=== PATIENT | female | born 1935 | race Caucasian/White ===

== ENCOUNTER 2016-10-11 06:18 | Emergency (ER) | payer MEDICARE, OTHER ==
--- NOTE | 2016-10-11 06:46 | ER Document Report ---
ED General - General Chief Complaint: Nose Bleed Stated Complaint: NOSE BLEED Mode of Arrival: Medic Information source: Patient, Relative, [facility] Records Cannot obtain history due to: Dementia Notes: 81-year-old female with history of dementia who recently had skin grafts placed on those and mass removed from neck by physician presents with complaints of bleeding nose and the neck on the left. Patient herself has no specific complaints regarding notes there was a little bit of blood and was concerned patient is on aspirin no other blood thinners TRAVEL OUTSIDE OF THE [place] IN LAST 30 DAYS: No - HPI Onset: Yesterday Onset/Duration: Persistent Quality of pain: No pain Severity: Mild Pain Level: Denies Associated symptoms: None Exacerbated by: Denies Relieved by: Denies Similar symptoms previously: No Recently seen / treated by doctor: Yes - Related Data Allergies/Adverse Reactions: No Known Allergies Allergy (Verified 04/11/16 14:32) Past Medical History - Social History Smoking Status: Never Smoker Cigarette use (# per day): No Chew tobacco use (# tins/day): No Smoking Education Provided: No Family History: CAD - Mother of an [place] at age 59 - Past Medical History Cardiac Medical History: Reports: Hx Atrial Fibrillation, Hx Heart Attack, Hx Hypercholesterolemia, Hx Hypertension, Hx Pulmonary Embolism Pulmonary Medical History: Reports: Hx Sleep Apnea Neurological Medical History: Reports: Hx Cerebrovascular Accident - Spelled reports she had a stroke during her most recent hospitalization., Hx Seizures Malignancy Medical History: Reports: Hx Breast Cancer, Hx Skin Cancer Psychiatric Medical History: Denies: Hx Depression Past Surgical History: Reports: Hx Cholecystectomy, Hx Hysterectomy, Hx Mastectomy - right breast 2000, Hx Tubal Ligation - Immunizations Hx Diphtheria, Pertussis, Tetanus Vaccination: Yes Hx Pneumococcal Vaccination: 09/23/14 Review of Systems - Review of Systems Notes: REVIEW OF SYSTEMS: CONSTITUTIONAL : Denies fever, chills, or sweats. Denies recent illness. EENT: admits to nose bleed CARDIOVASCULAR: Denies chest pain. Denies palpitations or racing or irregular heart beat. Denies ankle edema. RESPIRATORY: Denies cough, cold, or chest congestion. Denies shortness of breath, difficulty breathing, or wheezing. GASTROINTESTINAL: Denies abdominal pain or distention. Denies nausea, vomiting , or diarrhea. Denies blood in vomitus, stools, or per rectum. Denies black, tarry stools. Denies constipation. GENITOURINARY: Denies difficulty urinating, painful urination, burning, frequency, blood in urine, or discharge. FEMALE GENITOURINARY: Denies vaginal bleeding, heavy or abnormal periods, irregular periods. Denies vaginal discharge or odor. MUSCULOSKELETAL: Denies back or neck pain or stiffness. Denies joint pain or swelling. SKIN: admits ot blood from left neck HEMATOLOGIC : Denies easy bruising or bleeding. LYMPHATIC: Denies swollen, enlarged glands. NEUROLOGICAL: Denies confusion or altered mental status. Denies passing out or loss of consciousness. Denies dizziness or lightheadedness. Denies headache. Denies weakness or paralysis or loss of use of either side. Denies problems with gait or speech. Denies sensory loss, numbness, or tingling. Denies seizures. PSYCHIATRIC: Denies anxiety or stress. Denies depression, suicidal ideation, or homicidal ideation. ALL OTHER SYSTEMS REVIEWED AND NEGATIVE. Dictation was performed using [employer] voice recognition software PHYSICAL EXAMINATION: GENERAL: Well-appearing, well-nourished and in no acute distress. HEAD: Atraumatic, normocephalic. EYES: Pupils equal round and reactive to light, extraocular movements intact, conjunctiva are normal. ENT: left nostril clot noted, , left nose , multiple sutures of skin graft well appearing NECK: Normal range of motion, supple without lymphadenopathy LUNGS: Breath sounds clear to auscultation bilaterally and equal. No wheezes rales or rhonchi. HEART: Regular rate and rhythm without murmurs ABDOMEN: Soft, nontender, nondistended abdomen. No guarding, no rebound. No masses appreciated. Female : deferred Musculoskeletal: Normal range of motion, no pitting or edema. No cyanosis. NEUROLOGICAL: Cranial nerves grossly intact. Normal speech, normal gait. Normal sensory, motor exams PSYCH: Normal mood, normal affect. SKIN:left neck no pulsatile mass, no active bleeding, multiple sutures well appearing with dried oozing from the posterior aspect Course - Re-evaluation Re-evalutation: 10/11/16 06:57 Quick clot was placed on the neck to inhibit any further bleeding, patient otherwise looks well is in no distress. There is a large clots in the nose which is intact. Given that there is no active hemorrhaging patient looks well vital signs are stable I believe she is stable for discharge with the understanding that if symptoms worsen she must return immediately for further evaluation and care Daughter at bedside will stay with her today and will return immediately if there is any other concerns After performing a Medical Screening Examination, I estimate there is LOW risk for ACUTE CORONARY SYNDROME, RESPIRATORY FAILURE, SEPSIS OR MENINGITIS, thus I consider the discharge disposition reasonable. The patient and I have discussed the diagnosis and risks, and we agree with discharging home with close follow- up. We also discussed returning to the Emergency Department immediately if new or worsening symptoms occur. We have discussed the symptoms which are most concerning (e.g., changing or worsening pain, trouble swallowing or breathing, neck stiffness, fever) that necessitate immediate return. Discharge - Discharge Clinical Impression: Postoperative hematoma of skin following dermatologic procedure, Bleeding nose Condition: Stable Disposition: HOME, SELF-CARE Additional Instructions: Please remove quick clot in 24 hours Do not allow patient to blow her nose Return immediately if there are any other concerns Please follow-up with physician in 2-3 days for reevaluation
[2016-10-11 07:41] VITALS: BP 127/63
== END 2016-10-11 07:37 | disposition home or self-care (01) ==
LOC: ER 06:18
DX: L76.31 Postprocedural hematoma of skin and subcutaneous tissue following a dermatologic procedure (principal); R04.0 Epistaxis
CPT/HCPCS: 99284

== ENCOUNTER 2016-10-12 20:23 | Emergency (ER) | payer MEDICARE, OTHER ==
[2016-10-12] MEDS ORDERED: OXYMETAZOLINE HCL 0.05% NASAL SPRAY 15 ML BOTTLE NASL ONE (20:46)
[2016-10-12] MEDS ORDERED: LIDOCAINE 1%/EPINEPHRINE INJ 20 ML VIAL INJ ONE (21:14)
[2016-10-12] MEDS ORDERED: DESMOPRESSIN ACETATE INJ 4 MCG/1 ML AMPULE IV ONE ×2 (21:15→22:00)
--- NOTE | 2016-10-12 21:30 | ER Document Report ---
ED General - General Stated Complaint: NOSE BLEED Cannot obtain history due to: Dementia Notes: Patient is a 81-year-old female past medical history of breast cancer and acquired von Willebrand's disease who had a basal cell carcinoma resected off the left aspect of her nose with skin grafting the left neck placed 3 days ago. Since that time she has had oozing from the neck wound, the skin graft site as well as from the left nostril. She was seen in the emergency department earlier today and had a topical thrombin was applied to the neck wound no additional interventions taken. She's continued to bleed from all 3 sites since that time. She is not had any additional symptoms. The daughter brought the patient to the emergency department due to ongoing oozing from the sites. History is otherwise limited secondary to patient's significant dementia TRAVEL OUTSIDE OF THE [place] IN LAST 30 DAYS: No - Related Data Allergies/Adverse Reactions: No Known Allergies Allergy (Verified 04/11/16 14:32) Past Medical History - General Information source: Relative - Social History Smoking Status: Never Smoker Frequency of alcohol use: None Drug Abuse: None Lives with: Other - Assisted-living Family History: CAD - Mother of an [place] at age 59 - Past Medical History Cardiac Medical History: Reports: Hx Atrial Fibrillation, Hx Heart Attack, Hx Hypercholesterolemia, Hx Hypertension, Hx Pulmonary Embolism Pulmonary Medical History: Reports: Hx Sleep Apnea Neurological Medical History: Reports: Hx Cerebrovascular Accident - Spelled reports she had a stroke during her most recent hospitalization., Hx Seizures Malignancy Medical History: Reports: Hx Breast Cancer, Hx Skin Cancer Psychiatric Medical History: Denies: Hx Depression Past Surgical History: Reports: Hx Cholecystectomy, Hx Hysterectomy, Hx Mastectomy - right breast 2000, Hx Tubal Ligation - Immunizations Hx Diphtheria, Pertussis, Tetanus Vaccination: Yes Hx Pneumococcal Vaccination: 09/23/14 Review of Systems - Review of Systems Notes: Constitutional: Negative for fever. Cardiovascular: Negative for chest pain. HEENT: Positive for left nosebleed Respiratory: Negative for shortness of breath. Gastrointestinal: Negative for vomiting Musculoskeletal: Negative for back pain. Skin: Positive for bleeding from the skin graft sites Neurological: Negative for weakness or numbness. 10 point ROS negative except as marked above and in HPI. Physical Exam - Vital signs Vitals: Temp 97.8 F 10/12/16 20:25 Interpretation: Normal Notes: PHYSICAL EXAMINATION: GENERAL: Frail, elderly-appearing female in no acute distress HEAD: Atraumatic, normocephalic. EYES: Pupils equal round and reactive to light, extraocular movements intact, sclera anicteric, conjunctiva are normal. ENT: A large clot is present in the left nostril with a small amount of blood oozing from the area. There is a skin graft site on the left nose with a small amount of bleeding. NECK: Normal range of motion, there is a well-healing surgical wound on the left neck that is oozing blood from multiple sites. LUNGS: Breath sounds clear to auscultation bilaterally and equal. No wheezes rales or rhonchi. HEART: Regular rate and rhythm without murmurs ABDOMEN: Soft, nontender, normoactive bowel sounds. No guarding, no rebound. No masses appreciated. EXTREMITIES: Normal range of motion, no pitting or edema. No cyanosis. NEUROLOGICAL: No focal neurological deficits. Moves all extremities spontaneously and on command. PSYCH: Normal mood, normal affect. SKIN: Warm, Dry, normal turgor, no rashes or lesions noted. Course - Re-evaluation Re-evalutation: 10/12/16 21:29 Patient presents with ongoing bleeding from the left nostril as well as the incisional site along the left neck. Vitals otherwise within normal limits without tachycardia or hypotension. No significant bleeding although she is certainly oozing blood from the nostril as well as her incision site. Will proceed with administration of DDAVP given that patient has von Willebrand's disease and is continuing to bleed. Also packed the left nostril after installation of oxymetazoline. I will apply Dermabond over the neck incision to prevent ongoing bleeding. A CBC will also be obtained given the patient has been bleeding for 3 days this time to ensure that she has not become critically anemic. 10/13/16 01:24 CBC shows only mild anemia. Vitals remained within normal limits without tachycardia or hypotension. No active bleeding after 3 hours of monitoring in total after infusion of DDAVP as well as placement of a Rhino Rocket. Patient will be started on Keflex for prophylaxis given placement of Rhino Rocket. I' ve informed the daughter that the patient is follow-up with ENT in the next 3-4 days. At this time will discharge with return precautions and follow-up recommendations. Verbal discharge instructions given a the bedside and opportunity for questions given. Medication warnings reviewed. Daughter is in agreement with this plan and has verbalized understanding of return precautions and the need for primary care follow-up in the next 24-72 hours. 10/13/16 03:17 Patient does have mild tachycardia at 107 at time of discharge. This tachycardia started after placing the Rhino Rocket and I suspect the elevated heart rate is secondary to patient's discomfort with Rhino Rocket as her bleeding has stopped and her blood pressures remained within normal limits. - Vital Signs Vital signs: Temp Pulse Resp BP Pulse Ox 97.8 F 15 129/66 H 96 10/12/16 20:25 10/13/16 02:00 10/13/16 00:01 10/13/16 02:00 - Laboratory Result Diagrams: 10/13/16 00:40 Laboratory results interpreted by me: 10/13/16 00:40 Hgb 11.1 L Hct 34.2 L RDW 14.5 H Procedures - Nosebleed Procedure Left Time completed: 23:10 Location: Anterior Supplies used: Nasal tampon, Rhinorocket Discharge - Discharge Clinical Impression: Von Willebrand disease, Postoperative hematoma of skin following dermatologic procedure, Bleeding nose Condition: Fair Disposition: HOME, SELF-CARE Additional Instructions: You were seen today for a nosebleed. You need to keep the nasal tampon in place until you are seen by ear nose and throat. Take the anabiotic as directed. Return immediately if you develop more than a small amount of oozing around the nasal tampon. Please also return if you develop increasing pain, fever of greater than 1.4F, pus from the area, or any other symptoms that are concerning to you Prescriptions: Cephalexin Monohydrate [Keflex 500 mg Capsule] 500 mg PO QID #20 capsule Referrals: ISMAEL MCKEON MD [Primary Care Provider] - Follow up as needed ANITA KAPADIA MD [PRODUCTION LINE OPERATOR] - Follow up in 3-5 days
[2016-10-13 00:45] LABS: HEMATOCRIT 34.2 % (36.0-47.0); HEMOGLOBIN 11.1 g/dL (12.0-15.5); HGB HCT DIFFERENCE -0.9; MEAN CORPUSCULAR HEMOGLOBIN 27.9 pg (27.0-33.4); MEAN CORPUSCULAR HGB CONC 32.4 g/dL (32.0-36.0); MEAN CORPUSCULAR VOLUME 86 fl (80-97); RED BLOOD COUNT 3.96 10^6/uL (3.72-5.28); RED CELL DISTRIBUTION WIDTH 14.5 % (11.5-14.0); WHITE BLOOD COUNT 10.1 10^3/uL (4.0-10.5)
[2016-10-13] MEDS ORDERED: CEPHALEXIN 500 MG CAPSULE PO ONE (01:27)
[2016-10-13 03:32] VITALS: BP 155/80
== END 2016-10-13 03:43 | disposition home or self-care (01) ==
LOC: ER 20:23
PROC: 2Y41X5Z Packing of Nasal Region using Packing Material (ICD-10-PCS; principal; 2016-10-12)
DX: D68.0 Von Willebrand disease (principal); L76.31 Postprocedural hematoma of skin and subcutaneous tissue following a dermatologic procedure; R04.0 Epistaxis; Z85.3 Personal history of malignant neoplasm of breast
CPT/HCPCS: 99285; 96374; 36415; 85027; 30901; A9270; J3490 ×2; J2597

== ENCOUNTER 2016-10-13 08:42 | Emergency (ER) | payer MEDICARE, OTHER ==
--- NOTE | 2016-10-13 10:16 | ER Document Report ---
ED ENT - General Mode of Arrival: Ambulatory Information source: Patient TRAVEL OUTSIDE OF THE [place] IN LAST 30 DAYS: No - HPI Patient complains to provider of: Nose problem Associated symptoms: Other - see above <ELIJAH PARKINSON - Last Filed: 10/13/16 10:49> <KATELIN AMEZCUA - Last Filed: 10/13/16 13:41> - General Chief Complaint: Nose Bleed Stated Complaint: NOSE BLEED Notes: 81 year old female with history of dementia, acquired von Willebrand's disease, and basal cell carcinoma presents to the ED accompanied by her daughter complaining of bleeding from the left nostril secondary to a basal cell carcinoma resection that was performed [address] Schmidt. Patient had the carcinoma resected from the left nostril and had a graft placed from her left neck. Patient is a resident of [facility]. (ELIJAH PARKINSON) - Related Data Allergies/Adverse Reactions: No Known Allergies Allergy (Verified 04/11/16 14:32) Past Medical History - General Information source: Patient - Social History Smoking Status: Unknown if Ever Smoked Family History: CAD - Mother of an [place] at age 59 Patient has suicidal ideation: No Patient has homicidal ideation: No - Past Medical History Cardiac Medical History: Reports: Hx Atrial Fibrillation, Hx Heart Attack, Hx Hypercholesterolemia, Hx Hypertension, Hx Pulmonary Embolism Pulmonary Medical History: Reports: Hx Sleep Apnea Neurological Medical History: Reports: Hx Cerebrovascular Accident - Spelled reports she had a stroke during her most recent hospitalization., Hx Seizures Malignancy Medical History: Reports: Hx Breast Cancer, Hx Skin Cancer Past Surgical History: Reports: Hx Cholecystectomy, Hx Hysterectomy, Hx Mastectomy - right breast 2000, Hx Tubal Ligation - Immunizations Hx Diphtheria, Pertussis, Tetanus Vaccination: Yes Hx Pneumococcal Vaccination: 09/23/14 <ELIJAH PARKINSON - Last Filed: 10/13/16 10:49> Review of Systems - Review of Systems Constitutional: No symptoms reported EENT: See HPI, Nose discharge - bleeding from the left nostril Cardiovascular: No symptoms reported Respiratory: No symptoms reported Gastrointestinal: No symptoms reported Genitourinary: No symptoms reported Female Genitourinary: No symptoms reported Musculoskeletal: No symptoms reported Skin: No symptoms reported Hematologic/Lymphatic: No symptoms reported Neurological/Psychological: No symptoms reported -: Yes All other systems reviewed and negative <ELIJAH PARKINSON - Last Filed: 10/13/16 10:49> Physical Exam - Vital signs Interpretation: Normal - General General appearance: Alert In distress: None - HEENT Head: Normocephalic, Atraumatic Eyes: Normal Extraocular movements intact: Yes Pupils: PERRL Nasal: Other - Rhino rocket in place in left nostril. Presence of freshly coagulated blood around gauze with no sign of active bleeding.. No: Normal - Respiratory Respiratory status: No respiratory distress Breath sounds: Normal - Cardiovascular Rhythm: Irregularly irregular Heart sounds: Normal auscultation - Abdominal Inspection: Normal - Back Back: Normal - Extremities General upper extremity: Normal inspection, Normal ROM General lower extremity: Normal inspection, Normal ROM - Neurological Neuro grossly intact: Yes - Skin Skin Temperature: Warm Skin Moisture: Dry Skin Color: Normal <ELIJAH PARKINSON - Last Filed: 10/13/16 10:49> <KATELIN AMEZCUA - Last Filed: 10/13/16 13:41> - Vital signs Vitals: Temp Pulse Resp BP Pulse Ox 97.5 F 110 H 18 122/64 95 10/13/16 08:48 10/13/16 08:48 10/13/16 08:48 10/13/16 08:48 10/13/16 08:48 (ELIJAH PARKINSON) (KATELIN AMEZCUA) Course <ELIJAH PARKINSON - Last Filed: 10/13/16 10:49> - Laboratory Result Diagrams: 10/13/16 10:56 10/13/16 10:56 - Consults Dr. Esteves Consulted provider: will come to ER <KATELIN AMEZCUA - Last Filed: 10/13/16 13:41> - Re-evaluation Re-evalutation: 10/13/16 11:45 Attempt was made to contact the patient's geospatial developer, Dr. Schmidt. The swing type lathe operator at [facility] did not have any contact information for him. A phone call to the office listed on the website for after-hours doctor resulted in a recording that stated they were closed and I would need to call back during normal office hours. After exhausting all resources I could find to speak with her geospatial developer, I consulted the ear nose and throat doctor who is covering the local [facility] practice for the coming week. 10/13/16 13:35 The patient was seen by Dr. Esteves. He removed the Rhino Rocket, examined the skin flap that was bleeding, approximately epinephrine and replaced the Rhino Rocket and inflated it with more pressure than the first one had. She is to follow-up in the ENT office this week, and to follow-up with her geospatial developer this week. He called [facility] and give them instructions on reasons for her to return to the emergency room, and procedures that they can do for the patient at the assisted living facility. (KATELIN AMEZCUA) - Vital Signs Vital signs: Temp Pulse Resp BP Pulse Ox 98.7 F 106 H 16 125/67 94 10/13/16 10:54 10/13/16 10:54 10/13/16 10:54 10/13/16 10:54 10/13/16 10:54 (ELIJAH PARKINSON) (KATELIN AMEZCUA) - Laboratory Laboratory results interpreted by me: 10/13/16 10/13/16 10:56 10:56 WBC 12.2 H Hgb 11.2 L MCHC 31.1 L RDW 14.7 H Absolute Neutrophils 9.3 H Glucose 130 H Total Protein 6.2 L (KATELIN AMEZCUA) Discharge <ELIJAH PARKINSON - Last Filed: 10/13/16 10:49> <KATELIN AMEZCUA - Last Filed: 10/13/16 13:41> - Discharge Clinical Impression: Epistaxis, Von Willebrand's disease Post-op bleeding Qualifiers: Surgical complication system/body Area: skin Procedure type: dermatologic Qualified Code(s): L76.21 - Postprocedural hemorrhage of skin and subcutaneous tissue following a dermatologic procedure Condition: Stable Disposition: HOME, SELF-CARE Additional Instructions: Follow-up with the ENT doctor at [place] [facility] this week, call Saturday for an appointment. Follow-up with her geospatial developer this week, call Saturday morning for an appointment. RETURN TO THE EMERGENCY ROOM IF ANY NEW OR WORSENING SYMPTOMS. Scribe Attestation: 10/13/16 13:35 I personally performed the services described in the documentation, reviewed and edited the documentation which was dictated to the scribe in my presence, and it accurately records my words and actions. (SEVEN,KATELIN) Scribe Documentation - Scribe Written by Scribe:: Geetha Lu, 10/13/2016 10:38 acting as scribe for :: Seven <ELIJAH PARKINSON - Last Filed: 10/13/16 10:49>
[2016-10-13 11:19] LABS: ABSOLUTE LYMPHOCYTES (AUTO) 1.6 10^3/uL (0.5-4.7); ABSOLUTE MONOCYTES (AUTO) 1.2 10^3/uL (0.1-1.4); ABSOLUTE NEUT (AUTO) 9.3 10^3/uL (1.7-8.2); BASOPHILS % (AUTO) 0.3 % (0-2); EOSINOPHILS % (AUTO) 0.2 % (0-6); HEMOGLOBIN 11.2 g/dL (12.0-15.5); HGB HCT DIFFERENCE -2.4; LYMPHOCYTES % (AUTO) 13.1 % (13-45); MEAN CORPUSCULAR HEMOGLOBIN 27.2 pg (27.0-33.4); MEAN CORPUSCULAR HGB CONC 31.1 g/dL (32.0-36.0); MEAN CORPUSCULAR VOLUME 88 fl (80-97); MONOCYTES % (AUTO) 9.8 % (3-13); RED BLOOD COUNT 4.12 10^6/uL (3.72-5.28); RED CELL DISTRIBUTION WIDTH 14.7 % (11.5-14.0); SEGMENTED NEUTROPHILS % (AUTO) 76.6 % (42-78); WHITE BLOOD COUNT 12.2 10^3/uL (4.0-10.5)
[2016-10-13 11:35] LABS: PROTHROMBIN TIME 13.3 SEC (11.4-15.4)
[2016-10-13 11:37] LABS: ALANINE AMINOTRANSFERASE 36 U/L (9-52); ALBUMIN 3.6 g/dL (3.5-5.0); ALKALINE PHOSPHATASE 76 U/L (38-126); ANION GAP 12 (5-19); ASPARTATE AMINO TRANSFERASE 31 U/L (14-36); BLOOD UREA NITROGEN 14 mg/dL (7-20); CALCIUM 9.1 mg/dL (8.4-10.2); CARBON DIOXIDE 26 mmol/L (22-30); CHLORIDE 105 mmol/L (98-107); CREATININE RESULT 0.52 mg/dL (0.52-1.25); GLUCOSE 130 mg/dL (75-110); POTASSIUM 4.2 mmol/L (3.6-5.0); SODIUM 142.5 mmol/L (137-145); TOTAL PROTEIN 6.2 g/dL (6.3-8.2)
[2016-10-13] MEDS ORDERED: LIDOCAINE 1%/EPINEPHRINE INJ 20 ML VIAL INJ ONE (12:09)
[2016-10-13 13:48] VITALS: BP 131/75
--- NOTE | 2016-10-13 13:53 | CONSULTATION REPORT E ---
Consultation Report NAME: EDWARD DICK : 1935 AGE: 81Y DATE: 10/13/2016 TO: SHEREEN DENNIS FROM: KATELIN AMEZCUA M.D. Requesting Physician TIME: 12:55 p.m. HISTORY OF PRESENT ILLNESS: This is an 81-year-old white female who was brought to the emergency room with minor oozing from the left nostril. The patient has been seen on 2 other occasions prior to this for this same complaint. The patient, this past Saturday, had surgery performed in order to remove a basal cell carcinoma from the distal aspect of her nose favoring the left side. The patient also had a graft harvested from the left side of her neck. The surgery was performed by Dr. Schmidt. The patient was subsequently sent home, however, the patient does have a history of Von Willebrand Disease that was acquired secondary to chemotherapy for cancer treatment. The patient was brought to the emergency room this morning once again with generalized oozing from the left nasal cavity. The patient was subsequently worked up by the emergency room physician and I was consulted due to the bleeding. Several attempts were made to contact Dr. Schmidt, however, those were unsuccessful. The patient was, otherwise, found to be stable at the time of the exam. The patient did receive DDAVP yesterday and she received the maximal dose. ALLERGIES: The patient has no known drug allergies. PAST MEDICAL AND SURGICAL HISTORY: Reviewed in the medical record chart which was found to be extensive. MEDICATIONS: Her medication list was also reviewed in the medical chart. SOCIAL AND FAMILY HISTORY: Reviewed not only in the chart but also with her and her daughter who are present at the bedside. PHYSICAL EXAMINATION: GENERAL: Patient was found to be stable at the time. She did respond to verbal stimuli, however, she does have a history of stroke and is unable to respond verbally. HEENT: Patient's tympanic membranes were found to be intact bilaterally. She does wear hearing aids which were subsequently passed off to the daughter. No middle ear disease was noted. The bony landmarks were appropriate and the external auditory canals were found to be patent bilaterally. Nasal cavity on the right side was found to be patent. There was no bleeding. The left side was obstructed with a nasal Rhino Rocket. There was generalized oozing around the Rhino Rocket which did not appear to be placed appropriately. She also had a mustache dressing that was present which was found to be soaked with bright red blood. Please note that I did remove the mustache dressing. I attempted to then inflate the balloon further which did not appear to be inflated enough, however, the packing came out on its own. I subsequently then cleaned out the left nostril, inspected the area, and saw some generalized oozing from the previous surgical site. I then injected the area with 1% Xylocaine with epinephrine. Approximately 3 mL were used. I then took another 7.5 cm Rhino Rocket, coated it with lubricant, and then placed it in the patient's nasal cavity and then inflated it fully. Please note that the bleeding did stop immediately. I then placed a very small gauze and then a mustache dressing. I then inspected the patient's oral cavity. There was no bright red blood emanating from the nasopharynx. The uvula ridge and gingiva were found to be normal in appearance with no abnormalities. The buccal mucosa and floor of mouth were also normal in appearance with no masses or lesions. The tongue was midline and mobile and a strong gag reflex was noted. Soft palate did demonstrate a significant redundancy that did contact the posterior oropharyngeal wall. Neck was found to be supple with no adenopathy that was palpable. There was a laryngeal click and the trachea was found to be midline and mobile. Please note that there was a previous surgical site noted on the left side of her neck extending to the base. I did remove the dressing that was over it and hemostasis was noted. Please note that I did not redress this wound as if it starts bleeding, we would like to see that before any issues were to develop. Once that was completed, I then went over the instructions with the daughter and extensively. IMPRESSION: 1. Left epistaxis probably secondary to previous surgery. 2. Status post resection of basal cell carcinoma from the left side of her nose distally located. 3. Acquired Von Willebrand disease. 4. History of CVA. PLAN: As stated above, I did go ahead and replace the packing without difficulty. She was then given appropriate instructions as was the and the daughter. I have also discussed the aftercare with the emergency room personnel as she will need to be placed on an antibiotic because she has a foreign body present within her nose. I have also recommended that this packing remain for approximately 5 days. The patient is to continue with wound care as discussed by Dr. Schmidt. The patient will be instructed to followup with the ENT office this week for reevaluation or sooner if need be. Again, both the ER nurse and ER physician understands and will convey this to the [facility]. Please note that I did speak with Sandra who is the assembly lead person nurse over at the skilled facility extensively and did discuss with her the history, what I did in the ER, and also the aftercare instructions. I will be attempting once again to reach Dr. Schmidt or Dr. Orozco. DICTATING PHYSICIAN: SHEREEN DENNIS M.D. [id number] PHY#: [id number] ID: [id number] JOB#: [id number] ACCT: [id number] cc:SHEREEN DENNIS >
== END 2016-10-13 13:54 | disposition home or self-care (01) ==
LOC: ER 08:42
DX: R04.0 Epistaxis (principal); D68.0 Von Willebrand disease; L76.21 Postprocedural hemorrhage of skin and subcutaneous tissue following a dermatologic procedure; F03.90 Unspecified dementia, unspecified severity, without behavioral disturbance, psychotic disturbance, mood disturbance, and anxiety; Z85.828 Personal history of other malignant neoplasm of skin; Z98.890 Other specified postprocedural states
CPT/HCPCS: 99284; 36415; 85025; 85610; 80053; J3490

== ENCOUNTER 2016-10-18 07:03 | Inpatient (IN) | payer MEDICARE, OTHER ==
[2016-10-18] MEDS ORDERED: NORMAL SALINE 1000 ML 1,000 ML IV ONE (07:56)
[2016-10-18] MEDS ORDERED: PANTOPRAZOLE SODIUM 40 MG VIAL IV ONE (07:57)
[2016-10-18] MEDS ORDERED: DESMOPRESSIN ACETATE INJ 4 MCG/1 ML AMPULE IV ONE (07:57)
--- NOTE | 2016-10-18 08:16 | ER Document Report ---
ED General - General Stated Complaint: VAGINAL BLEEDING Mode of Arrival: Ambulatory Information source: Patient Notes: 81-year-old female history of acquired von Willebrand's who had a basal cell carcinoma removed from nose and neck and has been seen multiple times with bleeding issues presents today with rectal bleeding bright red and dark that occurred this morning when she was evaluated by the staff at the care facility TRAVEL OUTSIDE OF THE [place] IN LAST 30 DAYS: No - HPI Onset: Just prior to arrival Onset/Duration: Sudden Quality of pain: No pain Severity: Moderate Pain Level: Denies Associated symptoms: Other Exacerbated by: Denies Relieved by: Denies Similar symptoms previously: Yes Recently seen / treated by doctor: Yes - Related Data Allergies/Adverse Reactions: No Known Allergies Allergy (Verified 10/18/16 08:37) Past Medical History - Social History Smoking Status: Never Smoker Cigarette use (# per day): No Chew tobacco use (# tins/day): No Smoking Education Provided: No Family History: CAD - Mother of an VA at age 59 - Past Medical History Cardiac Medical History: Reports: Hx Atrial Fibrillation, Hx Heart Attack, Hx Hypercholesterolemia, Hx Hypertension, Hx Pulmonary Embolism Pulmonary Medical History: Reports: Hx Sleep Apnea Neurological Medical History: Reports: Hx Cerebrovascular Accident - Spelled reports she had a stroke during her most recent hospitalization., Hx Seizures Renal/ Medical History: Denies: Hx Peritoneal Dialysis Malignancy Medical History: Reports: Hx Breast Cancer, Hx Skin Cancer Psychiatric Medical History: Denies: Hx Depression Past Surgical History: Reports: Hx Cholecystectomy, Hx Hysterectomy, Hx Mastectomy - right breast 2000, Hx Tubal Ligation - Immunizations Hx Diphtheria, Pertussis, Tetanus Vaccination: Yes Hx Pneumococcal Vaccination: 09/23/14 Review of Systems - Review of Systems Notes: REVIEW OF SYSTEMS: CONSTITUTIONAL : Denies fever, chills, or sweats. Denies recent illness. EENT: Denies eye, ear, throat, or mouth pain or symptoms. Denies nasal or sinus congestion or discharge. Denies throat, tongue, or mouth swelling or difficulty swallowing. CARDIOVASCULAR: Denies chest pain. Denies palpitations or racing or irregular heart beat. Denies ankle edema. RESPIRATORY: Denies cough, cold, or chest congestion. Denies shortness of breath, difficulty breathing, or wheezing. GASTROINTESTINAL: rectal bleeding noted by staff GENITOURINARY: Denies difficulty urinating, painful urination, burning, frequency, blood in urine, or discharge. FEMALE GENITOURINARY: Denies vaginal bleeding, heavy or abnormal periods, irregular periods. Denies vaginal discharge or odor. MUSCULOSKELETAL: Denies back or neck pain or stiffness. Denies joint pain or swelling. SKIN: Denies rash, lesions or sores. HEMATOLOGIC : Denies easy bruising or bleeding. LYMPHATIC: Denies swollen, enlarged glands. NEUROLOGICAL: Denies confusion or altered mental status. Denies passing out or loss of consciousness. Denies dizziness or lightheadedness. Denies headache. Denies weakness or paralysis or loss of use of either side. Denies problems with gait or speech. Denies sensory loss, numbness, or tingling. Denies seizures. PSYCHIATRIC: Denies anxiety or stress. Denies depression, suicidal ideation, or homicidal ideation. ALL OTHER SYSTEMS REVIEWED AND NEGATIVE. Dictation was performed using [employer] voice recognition software PHYSICAL EXAMINATION: GENERAL: Well-appearing, well-nourished and in no acute distress. HEAD: Atraumatic, normocephalic. EYES: Pupils equal round and reactive to light, extraocular movements intact, conjunctiva are normal. ENT: nasal packing left nostril, mustache dressing, left nasal dressing, left neck dressing , no active bleeding NECK: Normal range of motion, supple without lymphadenopathy LUNGS: Breath sounds clear to auscultation bilaterally and equal. No wheezes rales or rhonchi. HEART: Regular rate and rhythm without murmurs ABDOMEN: Soft, nontender, nondistended abdomen. No guarding, no rebound. No masses appreciated. large amount of stool blood dark and bright red clots Female : no vagina bleeding noted with nurses in room Musculoskeletal: Normal range of motion, no pitting or edema. No cyanosis. NEUROLOGICAL: Cranial nerves grossly intact. Normal speech, normal gait. Normal sensory, motor exams PSYCH: Normal mood, normal affect. SKIN: Warm, Dry, normal turgor, no rashes or lesions noted. Physical Exam - Vital signs Vitals: Temp Pulse Resp BP Pulse Ox 98.1 F 105 H 16 123/63 93 10/18/16 07:30 10/18/16 07:30 10/18/16 07:30 10/18/16 07:30 10/18/16 07:30 Course - Re-evaluation Re-evalutation: 10/18/16 08:32 Patient noted to have large amount rectal bleeding, DDAVP as well as Protonix have been started on fluids lab work is pending - Vital Signs Vital signs: Temp Pulse Resp BP Pulse Ox 98.1 F 105 H 16 117/62 95 10/18/16 07:30 10/18/16 07:30 10/18/16 10:01 10/18/16 10:01 10/18/16 10:01 - Laboratory Result Diagrams: 10/18/16 08:21 10/18/16 09:59 Laboratory results interpreted by me: 10/18/16 10/18/16 08:21 09:59 WBC 14.6 H RBC 3.58 L Hgb 9.9 L Hct 30.9 L RDW 14.7 H Seg Neutrophils % 80.0 H Lymphocytes % 9.8 L Absolute Neutrophils 11.7 H Sodium 146.5 H Potassium 3.2 L Chloride 108 H BUN 25 H Creatinine 0.49 L Glucose 137 H Total Protein 5.3 L Albumin 2.8 L Discharge - Discharge Clinical Impression: Von Willebrand's disease, Rectal hemorrhage Condition: Stable Disposition: ADMITTED INPATIENT Admitting Provider: Hospitalist Unit Admitted: [facility]
[2016-10-18 08:41] LABS: ABSOLUTE EOSINOPHILS # (AUTO) 0.1 10^3/uL (0.0-0.6); ABSOLUTE LYMPHOCYTES (AUTO) 1.4 10^3/uL (0.5-4.7); ABSOLUTE MONOCYTES (AUTO) 1.3 10^3/uL (0.1-1.4); ABSOLUTE NEUT (AUTO) 11.7 10^3/uL (1.7-8.2); BASOPHILS % (AUTO) 0.3 % (0-2); EOSINOPHILS % (AUTO) 0.8 % (0-6); HEMATOCRIT 30.9 % (36.0-47.0); HEMOGLOBIN 9.9 g/dL (12.0-15.5); HGB HCT DIFFERENCE -1.2; LYMPHOCYTES % (AUTO) 9.8 % (13-45); MEAN CORPUSCULAR HEMOGLOBIN 27.8 pg (27.0-33.4); MEAN CORPUSCULAR HGB CONC 32.1 g/dL (32.0-36.0); MEAN CORPUSCULAR VOLUME 86 fl (80-97); MONOCYTES % (AUTO) 9.1 % (3-13); RED BLOOD COUNT 3.58 10^6/uL (3.72-5.28); RED CELL DISTRIBUTION WIDTH 14.7 % (11.5-14.0); WHITE BLOOD COUNT 14.6 10^3/uL (4.0-10.5)
[2016-10-18 10:33] LABS: ALANINE AMINOTRANSFERASE 30 U/L (9-52); ALBUMIN 2.8 g/dL (3.5-5.0); ALKALINE PHOSPHATASE 76 U/L (38-126); ANION GAP 12 (5-19); ASPARTATE AMINO TRANSFERASE 17 U/L (14-36); BILIRUBIN,TOTAL 0.6 mg/dL (0.2-1.3); BLOOD UREA NITROGEN 25 mg/dL (7-20); CARBON DIOXIDE 27 mmol/L (22-30); CHLORIDE 108 mmol/L (98-107); CREATININE RESULT 0.49 mg/dL (0.52-1.25); GLUCOSE 137 mg/dL (75-110); POTASSIUM 3.2 mmol/L (3.6-5.0); SODIUM 146.5 mmol/L (137-145); TOTAL PROTEIN 5.3 g/dL (6.3-8.2)
[2016-10-18 11:35] LABS: PROTHROMBIN TIME 14.4 SEC (11.4-15.4)
[2016-10-18] MEDS: PANTOPRAZOLE SODIUM 40 MG VIAL IV PRN ×2 (12:00→21:03)
[2016-10-18] MEDS ORDERED: NORMAL SALINE 1000 ML 1,000 ML IV PRN (12:09)
[2016-10-18] MEDS ORDERED: ACETAMINOPHEN 325 MG TABLET PO PRN (12:15)
[2016-10-18] MEDS ORDERED: ONDANSETRON HCL INJ/PF 4 MG/2 ML SDV IV PRN (12:15)
--- NOTE | 2016-10-18 14:30 | PDOC H&P ---
History of Present Illness Admission Date/PCP: 10/18/16 12:09 Patient complains of: Patient is nonverbal but was noted to be sitting in a pool of her own blood. History of Present Illness: EDWARD DICK is a 81 year old female resident at [facility] with Dr. Zuniga as her primary care provider sent over to the emergency department today when she was noticed to be sitting in a pool of her own blood. She has had a massive CVA in May 2015 that left her with an expressive aphasia, dysphagia and a dense right hemiplegia requiring placement at [facility]. She takes daily low-dose aspirin as a result. She has a history of acquired von Willebrand's disease thought secondary to chemotherapy for treatment of her breast cancer for which she also received radical mastectomy and lymph node dissection on the right but no radiation therapy. She is followed by Dr. Soler, hematology for this disease. In fact, she was seen in the emergency department earlier this week with epistaxis, ENT was consulted in the emergency department and placed Rhino Rocket that is due to removed today, and she was given a dose of DDAVP. 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 She has a history of Hemoccult-positive stools and underwent upper and lower endoscopy but that was many years ago and the results are unknown. She has known diverticular disease no history of diverticulitis and no history of diverticular bleed previously. Evaluation in the emergency department she shows grossly bloody stools on exam, her hemoglobin is down to 9.9 from a baseline at [facility] between 11.5 and 12.5. She was given a dose of DDAVP 20 g. She is started on a Protonix drip after Protonix bolus given. She is received 1 L of normal saline prior to my arrival. We were asked to admit her for further evaluation and management. Dr. Lozano has agreed to see the patient in consultation if lower endoscopy is required. The patient is DO NOT RESUSCITATE. Her daughter, Paige, is her POA. Past Medical History Cardiac Medical History: Reports: Atrial Fibrillation, Myocardial Infarction, Hyperlipidema, Hypertension, Pulmonary Embolism Pulmonary Medical History: Reports: Sleep Apnea Neurological Medical History: Reports: Seizures Malignancy Medical History: Reports: Breast Cancer, Skin Cancer Psychiatric Medical History: Denies: Depression Hematology: Reports: Anemia - Von Wildebrands, Bleeding Tendencies - Acquired Von Willebrand's disease Past Surgical History Past Surgical History: Reports: Cholecystectomy, Hysterectomy, Mastectomy - right breast 2000, Tubal Ligation Social History Information Source: Relative Smoking Status: Never Smoker Frequency of Alcohol Use: None Hx Recreational Drug Use: No Hx Prescription Drug Abuse: No - Advance Directive Resuscitation Status: Do Not Resuscitate Family History Family History: CAD - Mother of an MS at age 59 Parental Family History Reviewed: Yes Children Family History Reviewed: Yes Sibling(s) Family History Reviewed.: Yes Medication/Allergy Allergies/Adverse Reactions: No Known Allergies Allergy (Verified 10/18/16 08:37) Review of Systems ROS unobtainable: Due to mental status - Patient is nonverbal since her stroke Physical Exam Vital Signs: Temp Pulse Resp BP Pulse Ox 98.1 F 105 H 18 109/79 96 10/18/16 07:30 10/18/16 07:30 10/18/16 12:00 10/18/16 12:00 10/18/16 12:00 PHYSICAL EXAM GENERAL: NAD; well developed; thin; alert and unable to determine if oriented to person, place, time, situation, seems to recognize her family and respond other voices. HEENT: normocephalic, atraumatic; EOMI, PERRLA, no conjunctival injection, no scleral icterus; oral mucosa moist,; neck supple, no LAD, normal ROM; right elbow rocket in place in the left nare RESPIRATORY: no accessory muscle use, no increased WOB, good air entry bilaterally; no wheezes, rales, rhonchi; no inspiratory crackles CARDIO: no JVD; RRR; no systolic murmur; no tachycardia VASCULAR: no carotid bruit; no abdominal bruit; no pallor; 2+ radial, DP pulse ; normal capillary refill GI: soft; nondistended; normal bowel sounds; no hepato spleno megaly; no rebound, rigidity, guarding; nontender :; rectal deferred, already performed by the ER physician, grossly bloody stool noted on the bedclothes NEURO: normal patella reflexes; abnormal motor function with dense right hemiplegia; MSK: 4/5 strength on the left, flaccid on the right; no tenderness to palpation over the bony prominences EXTREMITIES: no calf tender; no palpable cords in calf; no clubbing, cyanosis , pedal edema SKIN: warm; moist; no petechiae; no telengectasias; no jaundice; no rash but multiple areas of ecchymosis in various stages of healing Results Impressions: Abdomen/Pelvis CT 10/18/16 09:31 IMPRESSION: COLONIC DIVERTICULOSIS. NO CT FINDINGS OF ACUTE DIVERTICULITIS. NO OTHER SIGNIFICANT OR ACUTE PROCESS IN THE ABDOMEN OR PELVIS. Assessment & Plan - Diagnosis (1) Anemia Qualifiers: Anemia type: other cause Is this a current diagnosis for this admission?: YesPlan: Admit the patient to [facility] for close dynamic monitoring, serial CBC. Repeat DDAVP this evening as it seems evidence she continues to bleed. Transfuse red blood cells as her condition warrants. If bleeding continues consider transfusion of platelets to replace the ones inhibited by her chronic aspirin use. Obviously hold any antiplatelet therapy and anticoagulation including DVT prophylaxis. Risk and benefits of transfusion of blood products were discussed with the power of lumber estimator at the bedside, all questions were asked and answered to her satisfaction, and she is agreeable transfusion if becomes clinically indicated. Consider hematology consult if her condition fails to stabilize. Consult Dr. Lozano as needed. (2) Rectal bleeding Is this a current diagnosis for this admission?: YesPlan: As above. Most likely a diverticular bleed as the etiology however with her von Willebrand's disease clearly at risk for AV malformations as well. (3) Von Willebrands disease Is this a current diagnosis for this admission?: YesPlan: As above (4) CAD (coronary artery disease) Qualifiers: Coronary Disease-Associated Artery/Lesion type: unspecified vessel or lesion type [place] vs. transplanted heart: [place] heart Associated angina: without angina Qualified Code(s): I25.10 - Atherosclerotic heart disease of [place] coronary artery without angina pectoris Is this a current diagnosis for this admission?: YesPlan: Quiescent. Continue home regimen other than antiplatelet therapy. (5) Cerebrovascular accident (CVA) Qualifiers: CVA mechanism: thrombosis Precerebral and cerebral artery: unspecified cerebral artery Qualified Code(s): I63.30 - Cerebral infarction due to thrombosis of unspecified cerebral artery Is this a current diagnosis for this admission?: YesPlan: With dense right hemiplegia. At baseline. Holding antiplatelet therapy. (6) Dysphagia Qualifiers: Dysphagia type: oropharyngeal phase Qualified Code(s): R13.12 - Dysphagia, oropharyngeal phase Is this a current diagnosis for this admission?: YesPlan: Reportedly takes dysphasic soft and thickened liquid diet at the facility (7) HTN (hypertension) Qualifiers: Hypertension type: essential hypertension Qualified Code(s): I10 - Essential (primary) hypertension Is this a current diagnosis for this admission?: YesPlan: Titrated regimen to maintain pressures ideally less than 140/90. (8) Nosebleed Is this a current diagnosis for this admission?: YesPlan: Once we have the GI bleeding uncontrollable address removal of the rhino rocket (9) Seizure disorder as sequela of cerebrovascular accident Is this a current diagnosis for this admission?: YesPlan: Clarify home regimen and continue usual - Time Time Spent: Greater than 70 Minutes Anticipated discharge: SNF Within: within 72 hours - Inpatient Certification Medical Necessity: Significant Comorbidiites Make Outpatient Treatment Too Risky , Need Close Monitoring Due to Risk of Patient Decompensation, Need For IV Fluids, Need For Continuous Telemetry Monitoring
[2016-10-18 16:03] LABS: HEMATOCRIT 28.7 % (36.0-47.0); HEMOGLOBIN 8.8 g/dL (12.0-15.5); HGB HCT DIFFERENCE -2.3; MEAN CORPUSCULAR HGB CONC 30.6 g/dL (32.0-36.0); MEAN CORPUSCULAR VOLUME 88 fl (80-97); RED BLOOD COUNT 3.25 10^6/uL (3.72-5.28); RED CELL DISTRIBUTION WIDTH 14.4 % (11.5-14.0); WHITE BLOOD COUNT 11.9 10^3/uL (4.0-10.5)
[2016-10-18] MEDS ORDERED: POTASSI CL 20 MEQ/1/2NS 1L 1,000 ML IV PRN (18:25)
[2016-10-18] MEDS ORDERED: NORMAL SALINE 250 ML IV PRN ×2 (18:28)
[2016-10-18] MEDS: LEVETIRACETAM 500 MG TABLET PO SCH (18:57)
[2016-10-18] MEDS: METOPROLOL TARTRATE 25 MG TABLET PO SCH (18:58)
[2016-10-18] MEDS: HYDROCODONE/ACETAMINOPHEN 5-325 MG TABLET PO SCH (18:58)
[2016-10-18] MEDS ORDERED: DESMOPRESSIN ACETATE 20 MCG in NORMAL SALINE 50 ML IV ONE (20:00)
[2016-10-18] MEDS: MIRTAZAPINE 15 MG TABLET PO SCH (22:32)
[2016-10-18] MEDS: ATORVASTATIN CALCIUM 40 MG TABLET PO SCH (22:33)
--- NOTE | 2016-10-18 22:36 | PDOC TRANSFER SUMMARY ---
General Admission Date/PCP: 10/18/16 12:09 Resuscitation Status: Do Not Resuscitate - Transfer Diagnosis (1) Acute post-hemorrhagic anemia Is this a current diagnosis for this admission?: YesDiagnosis Summary: Hemoglobin has now dropped to 7.7. Will proceed with blood transfusion. Daughter understands the risks associated with blood product transfusion to include, but not be limited to, transfusion reaction, which can be fatal, along with hepatitis and/or HIV viruses. Discussed in lay person's terms. Daughter agrees that patient should undergo transfusion of blood products. (2) Rectal bleeding Is this a current diagnosis for this admission?: Yes (3) Von Willebrands disease Is this a current diagnosis for this admission?: Yes (4) DNR (do not resuscitate) Is this a current diagnosis for this admission?: YesDiagnosis Summary: Implications of DO NOT RESUSCITATE/DO NOT INTUBATE status discussed with patient and daughter. Discussed in layperson's terms. Implications understood. Daughter is the health care decision maker. Her conversation is lucid and appropriate. She and patient desire DO NOT RESUSCITATE/DO NOT INTUBATE status. Will honor their wishes. Patient with aphasia from prior stroke. - Transfer Medications Home Medications: Atorvastatin Calcium [Lipitor 40 mg Tablet] 40 mg PO QHS 10/18/16 Cephalexin [Cephalexin 500 MG Capsule] 500 mg PO QID 10/18/16 Garlic [Garlic Oil] 500 mg PO DAILY 10/18/16 Hydrocodone/Acetaminophen [[place] 5-325 mg Tablet] 1 tab PO BID 10/18/16 Loperamide HCl [Imodium A-D] 2 mg PO PRN PRN 10/18/16 [place]-3 Fatty Acids [[place]-3] 1,000 mg PO DAILY 10/18/16 RX: Acetaminophen 500 mg PO Q6HP PRN 10/18/16 RX: Amlodipine Besylate 5 mg PO DAILY 10/18/16 RX: Aspirin [Aspirin 81 mg Chewable Tablet] 81 mg PO DAILY 10/18/16 RX: Famotidine 20 mg PO QHS 10/18/16 RX: Levetiracetam [Keppra 500 mg Tablet] 1,000 mg PO QAM 10/18/16 RX: Levetiracetam [Keppra] 500 mg PO QPM 10/18/16 RX: Levothyroxine Sodium [Synthroid 0.025 mg Tablet] 25 mcg PO DAILY 10/18/16 RX: Losartan Potassium [Cozaar 50 mg Tablet] 50 mg PO DAILY 10/18/16 RX: Lysine 500 mg PO DAILY 10/18/16 RX: Metoprolol Tartrate 12.5 mg PO BID 10/18/16 RX: Mirtazapine 7.5 mg PO QHS 10/18/16 RX: Sennosides/Docusate 8.6-50 mg [Senna Plus Tablet] 1 tab PO BID 10/18/16 Transfer Medications: Current Medications Acetaminophen (Tylenol 325 Mg Tablet) 650 mg PO Q4HP PRN PRN Reason: FOR PAIN OR TEMP Stop: 11/17/16 12:14 Acetaminophen/Hydrocodone Bitart ([place] 5-325 Mg Tablet) 1 tab PO BID [facility] Stop: 10/25/16 17:59 Last Admin: 10/18/16 18:58 Dose: 1 tab Atorvastatin Calcium (Lipitor 40 Mg Tablet) 40 mg PO QHS [facility] Stop: 11/17/16 21:59 Potassium Chloride/Sodium Chloride (1/2ns 1000 Ml/Kcl 20 Meq Premix Bag) 1,000 mls @ 75 mls/hr IV CONTINUOUS PRN PRN Reason: THIS MED IS NOT "PRN" Stop: 11/17/16 18:24 Sodium Chloride (Nacl 0.9% 250 Ml Iv Soln) 250 mls @ 30 mls/hr IV .DURING TRANSFUSION PRN PRN Reason: THIS MED IS NOT "PRN" Stop: 10/19/16 18:27 Sodium Chloride (Nacl 0.9% 250 Ml Iv Soln) 250 mls @ 0 mls/hr IV CONTINUOUS PRN ; As Directed PRN Reason: AFTER EACH UNIT Stop: 10/19/16 18:27 Levetiracetam (Keppra 500 Mg Tablet) 1,000 mg PO QAM [facility] Stop: 11/18/16 07:59 Levetiracetam (Keppra 500 Mg Tablet) 500 mg PO QPM [facility] Stop: 11/17/16 17:59 Last Admin: 10/18/16 18:57 Dose: 500 mg Levothyroxine Sodium (Synthroid 0.025 Mg Tablet) 0.025 mg PO DAILY [facility] Stop: 11/18/16 09:59 Metoprolol Tartrate (Lopressor 25 Mg Tablet) 12.5 mg PO BID [facility] Stop: 11/17/16 17:59 Last Admin: 10/18/16 18:58 Dose: 12.5 mg Mirtazapine (Remeron 15 Mg Tablet) 7.5 mg PO QHS [facility] Stop: 11/17/16 21:59 Ondansetron HCl (Zofran Inj/Pf 4 Mg/2 Ml Sdv) 4 mg IV Q8HP PRN PRN Reason: FOR NAUSEA/VOMITING Stop: 11/17/16 12:14 Pantoprazole Sodium (Protonix Iv Inj 40 Mg Vial) 80 mg IV .CONTINUOUS (IVBAG) PRN PRN Reason: THIS MED IS NOT "PRN" Stop: 10/21/16 08:01 Last Admin: 10/18/16 21:03 Dose: 80 mg - Allergies Allergies/Adverse Reactions: No Known Allergies Allergy (Verified 10/18/16 08:37) Hospital Course Hospital Course: 10/18/2016 Patient discussed with daytime hospitalist team at checkout rounds this evening. Admitted earlier for rectal bleeding. At 7:35 PM, I discussed the patient by phone with Dr. Soler, patient's usual service team leader. His concern is that our facility does not have the capability of measuring her von Willebrand's factor level, nor do we have the capability of transfusing von Willebrand's factor if necessary. He has recommended transferring the patient to a tertiary facility tonight if possible. Neither [facility] nor [facility] have the above capability , either, per Dr. Soler. Vital signs at 8:00 PM revealed blood pressure 121/54. Pulse 91 and regular. Respirations 18 and unlabored. 98% saturation on room air. Temperature 98.3. I subsequently discussed the above recommendation with patient and daughter. Daughter, who is patient's surrogate health care decision maker, and patient agree with the need for transfer. Patient awake alert pleasant and cooperative. Floor nurse present. According to daughter, who is at patient's bedside with patient's approval, last episode of bleeding was approximately 6 PM , just prior to patient being transferred to [facility]. At 8:20 PM, I spoke with transfer center at [facility]. I was referred to their utilization management team, with whom I discussed the patient 8:55 PM. Subsequent conversation with Dr. Soler at 9:20 PM led to his recommendation to forego platelet transfusion as had been ordered by the daytime hospitalist team. Floor nurse notified. Order cancelled. He also recommended no further DDAVP dosages tonight. At 9:45 PM, I discussed the patient by phone with Dr. Resendiz, on-call hospitalist at [facility]. He stated he would contact their on-call service team leader and have them contact me. At 10:10 PM, I discussed the patient by phone with Dr. Harley on-call hematology fellow at [facility]. Several specific questions were asked. We then were able to arrange conference call with Dr. Soler. Discussion by conference call between Dr. Soler and Dr. Harley. Patient has type I von Willebrand's disease. With this being patient's third episode of bleeding requiring DDAVP since Saturday of last week, combined with Dr. Soler's underlying concern about our facility's inability to manage any further significant bleeding, patient has been graciously accepted at [facility]. Beds are reportedly available. Vital signs at 10:15 PM reveal a blood pressure 102/45, pulse of 87, respirations 20, saturation 96% on room air, and temperature 97.3. 55 minutes extended care time spent in evaluation and management of patient. Physical Exam Vital Signs: Temp Pulse Resp BP Pulse Ox 97.3 F 87 20 102/55 L 96 10/18/16 21:59 10/18/16 21:59 10/18/16 21:59 10/18/16 21:59 10/18/16 21:59 Intake & Output 10/17/16 10/18/16 10/19/16 00:59 00:59 00:59 Weight 54.6 kg Results Laboratory Results: 10/18/16 15:45 10/18/16 15:45 WBC 11.9 H RBC 3.25 L Hgb 8.8 L Hct 28.7 L MCV 88 MCH 27.0 MCHC 30.6 L RDW 14.4 H Plt Count 297 Impressions: Abdomen/Pelvis CT 10/18/16 09:31 IMPRESSION: COLONIC DIVERTICULOSIS. NO CT FINDINGS OF ACUTE DIVERTICULITIS. NO OTHER SIGNIFICANT OR ACUTE PROCESS IN THE ABDOMEN OR PELVIS.
[2016-10-18 23:37] LABS: ABSOLUTE EOSINOPHILS # (AUTO) 0.1 10^3/uL (0.0-0.6); ABSOLUTE LYMPHOCYTES (AUTO) 1.4 10^3/uL (0.5-4.7); ABSOLUTE MONOCYTES (AUTO) 1.2 10^3/uL (0.1-1.4); ABSOLUTE NEUT (AUTO) 10.7 10^3/uL (1.7-8.2); BASOPHILS % (AUTO) 0.3 % (0-2); EOSINOPHILS % (AUTO) 1.1 % (0-6); HEMATOCRIT 23.8 % (36.0-47.0); HGB HCT DIFFERENCE -0.7; LYMPHOCYTES % (AUTO) 10.2 % (13-45); MEAN CORPUSCULAR HEMOGLOBIN 27.7 pg (27.0-33.4); MEAN CORPUSCULAR HGB CONC 32.3 g/dL (32.0-36.0); MEAN CORPUSCULAR VOLUME 86 fl (80-97); MONOCYTES % (AUTO) 8.6 % (3-13); RED BLOOD COUNT 2.76 10^6/uL (3.72-5.28); RED CELL DISTRIBUTION WIDTH 14.7 % (11.5-14.0); SEGMENTED NEUTROPHILS % (AUTO) 79.8 % (42-78); WHITE BLOOD COUNT 13.4 10^3/uL (4.0-10.5)
[2016-10-18 23:48] LABS: ANION GAP 8 (5-19); BLOOD UREA NITROGEN 18 mg/dL (7-20); CALCIUM 8.7 mg/dL (8.4-10.2); CARBON DIOXIDE 30 mmol/L (22-30); CHLORIDE 110 mmol/L (98-107); CREATININE RESULT 0.52 mg/dL (0.52-1.25); GLUCOSE 105 mg/dL (75-110); POTASSIUM 3.6 mmol/L (3.6-5.0); SODIUM 147.9 mmol/L (137-145)
[2016-10-18 23:58] LABS: HEMOGLOBIN 7.7 g/dL (12.0-15.5)
[2016-10-19] MEDS ORDERED: POTASSI CL 20 MEQ/D5-1/2NS 1L 1,000 ML IV PRN (00:19)
[2016-10-19] MEDS ORDERED: NORMAL SALINE 250 ML IV PRN ×4 (00:23→09:31)
[2016-10-19 05:46] LABS: HEMATOCRIT 27.9 % (36.0-47.0); HEMOGLOBIN 9.3 g/dL (12.0-15.5); MEAN CORPUSCULAR HEMOGLOBIN 28.8 pg (27.0-33.4); MEAN CORPUSCULAR HGB CONC 33.3 g/dL (32.0-36.0); MEAN CORPUSCULAR VOLUME 87 fl (80-97); RED BLOOD COUNT 3.22 10^6/uL (3.72-5.28); RED CELL DISTRIBUTION WIDTH 14.3 % (11.5-14.0); WHITE BLOOD COUNT 10.2 10^3/uL (4.0-10.5)
[2016-10-19 06:03] LABS: ANION GAP 9 (5-19); BLOOD UREA NITROGEN 18 mg/dL (7-20); CALCIUM 8.9 mg/dL (8.4-10.2); CARBON DIOXIDE 29 mmol/L (22-30); CHLORIDE 111 mmol/L (98-107); CREATININE RESULT 0.48 mg/dL (0.52-1.25); GLUCOSE 102 mg/dL (75-110); POTASSIUM 3.6 mmol/L (3.6-5.0); SODIUM 148.7 mmol/L (137-145)
[2016-10-19] MEDS ORDERED: LEVETIRACETAM 500 MG TABLET PO SCH (08:00)
--- NOTE | 2016-10-19 08:20 | PDOC CONSULTATION ---
Consultation Consult Date: 10/19/16 Attending physician:: TRAE THOMAS Consult reason:: Known hx of VWD dx here w/ GI bleed History of Present Illness Admission Date/PCP: 10/18/16 12:09 Patient complains of: bleeding, vwd History of Present Illness: 81-year-old female with multiple medical problems, but known history of type I von Willebrand's disease. Recently she has had different surgical procedures, minor procedures, that has required DDAVP to be given, she has had control of bleeding with that. She was given DDAVP yesterday, and over last 24 hours she' s had bleeding per rectum. It is felt at present to be a diverticular bleed. Of note, she is also had a recent nosebleed with use of DDAVP, she has a nasal trumpet placed at present, she also had a basal cell carcinoma removed from the face with bleeding from that and use of DDAVP. Hemoglobin upon presentation was in the 7 range, she was transfused, her hemoglobin today is 9 range. Past Medical History Cardiac Medical History: Reports: Atrial Fibrillation, Myocardial Infarction, Hyperlipidema, Hypertension, Pulmonary Embolism Pulmonary Medical History: Reports: Sleep Apnea Neurological Medical History: Reports: Seizures Malignancy Medical History: Reports: Breast Cancer, Skin Cancer Psychiatric Medical History: Denies: Depression Hematology: Reports: Anemia - Von Wildebrands, Bleeding Tendencies - Acquired Von Willebrand's disease Past Surgical History Past Surgical History: Reports: Cholecystectomy, Hysterectomy, Mastectomy - right breast 2000, Tubal Ligation Social History Smoking Status: Never Smoker Frequency of Alcohol Use: None Hx Recreational Drug Use: No Hx Prescription Drug Abuse: No - Advance Directive Resuscitation Status: Do Not Resuscitate Family History Family History: CAD - Mother of an DE at age 59 Parental Family History Reviewed: Yes Children Family History Reviewed: Yes Sibling(s) Family History Reviewed.: Yes Medication/Allergy Home Medications: Acetaminophen 500 mg PO Q6HP PRN 10/18/16 Amlodipine Besylate 5 mg PO DAILY 10/18/16 Aspirin [Aspirin 81 mg Chewable Tablet] 81 mg PO DAILY 10/18/16 Atorvastatin Calcium [Lipitor 40 mg Tablet] 40 mg PO QHS 10/18/16 Cephalexin [Cephalexin 500 MG Capsule] 500 mg PO QID 10/18/16 Famotidine 20 mg PO QHS 10/18/16 Garlic [Garlic Oil] 500 mg PO DAILY 10/18/16 Hydrocodone/Acetaminophen [[place] 5-325 mg Tablet] 1 tab PO BID 10/18/16 Levetiracetam [Keppra 500 mg Tablet] 1,000 mg PO QAM 10/18/16 Levetiracetam [Keppra] 500 mg PO QPM 10/18/16 Levothyroxine Sodium [Synthroid 0.025 mg Tablet] 25 mcg PO DAILY 10/18/16 Loperamide HCl [Imodium A-D] 2 mg PO PRN PRN 10/18/16 Losartan Potassium [Cozaar 50 mg Tablet] 50 mg PO DAILY 10/18/16 Lysine 500 mg PO DAILY 10/18/16 Metoprolol Tartrate 12.5 mg PO BID 10/18/16 Mirtazapine 7.5 mg PO QHS 10/18/16 [place]-3 Fatty Acids [[place]-3] 1,000 mg PO DAILY 10/18/16 Sennosides/Docusate 8.6-50 mg [Senna Plus Tablet] 1 tab PO BID 10/18/16 Allergies/Adverse Reactions: No Known Allergies Allergy (Verified 10/18/16 08:37) Review of Systems ROS unobtainable: Other - Patient has expressive aphasia Physical Exam Vital Signs: Temp Pulse Resp BP Pulse Ox 98.6 F 91 16 118/55 L 96 10/19/16 05:01 10/19/16 05:01 10/19/16 05:01 10/19/16 05:01 10/19/16 05:01 Intake & Output 10/18/16 10/19/16 10/20/16 06:59 06:59 06:59 Intake Total 1518 Balance 1518 Weight 55.6 kg General appearance: PRESENT: no acute distress Head exam: PRESENT: atraumatic, other - Ecchymoses face Mouth exam: PRESENT: dry mucosa Neck exam: ABSENT: carotid bruit, JVD, lymphadenopathy, thyromegaly Respiratory exam: PRESENT: clear to auscultation maurilio. ABSENT: rales, rhonchi, wheezes Cardiovascular exam: PRESENT: bradycardia GI/Abdominal exam: PRESENT: normal bowel sounds, soft. ABSENT: distended, guarding, mass, organolmegaly, rebound, tenderness Rectal exam: PRESENT: deferred Extremities exam: PRESENT: full ROM. ABSENT: calf tenderness, clubbing, pedal edema Neurological exam: PRESENT: alert, aphasic Results Laboratory Results: 10/19/16 05:17 10/19/16 05:17 10/18/16 10/18/16 10/18/16 15:45 23:10 23:10 WBC 11.9 H 13.4 H RBC 3.25 L 2.76 L Hgb 8.8 L 7.7 L Hct 28.7 L 23.8 L MCV 88 86 MCH 27.0 27.7 MCHC 30.6 L 32.3 RDW 14.4 H 14.7 H Plt Count 297 316 Seg Neutrophils % 79.8 H Lymphocytes % 10.2 L Monocytes % 8.6 Eosinophils % 1.1 Basophils % 0.3 Absolute Neutrophils 10.7 H Absolute Lymphocytes 1.4 Absolute Monocytes 1.2 Absolute Eosinophils 0.1 Absolute Basophils 0.0 Sodium 147.9 H Potassium 3.6 Chloride 110 H Carbon Dioxide 30 Anion Gap 8 BUN 18 Creatinine 0.52 Est GFR ( Amer) > 60 Est GFR (Non-Af Amer) > 60 Glucose 105 Calcium 8.7 Magnesium 10/19/16 10/19/16 05:17 05:17 WBC 10.2 RBC 3.22 L Hgb 9.3 L Hct 27.9 L MCV 87 MCH 28.8 MCHC 33.3 RDW 14.3 H Plt Count 289 Seg Neutrophils % Lymphocytes % Monocytes % Eosinophils % Basophils % Absolute Neutrophils Absolute Lymphocytes Absolute Monocytes Absolute Eosinophils Absolute Basophils Sodium 148.7 H Potassium 3.6 Chloride 111 H Carbon Dioxide 29 Anion Gap 9 BUN 18 Creatinine 0.48 L Est GFR ( Amer) > 60 Est GFR (Non-Af Amer) > 60 Glucose 102 Calcium 8.9 Magnesium 2.0 Impressions: Abdomen/Pelvis CT 10/18/16 09:31 IMPRESSION: COLONIC DIVERTICULOSIS. NO CT FINDINGS OF ACUTE DIVERTICULITIS. NO OTHER SIGNIFICANT OR ACUTE PROCESS IN THE ABDOMEN OR PELVIS. Assessment & Plan - Diagnosis (1) Von Willebrands disease Is this a current diagnosis for this admission?: YesPlan: Patient with von Willebrand's disease, type I, we will repeat von Willebrand levels today. However that'll take several days to come back. We discussed his case overnight, with hospitalist team, and recommended transfer to [facility], the reason for this is because of the need for possible factor infusion, at present she is received several doses of DDAVP, I don't believe right now that will help her. We will watch closely. (2) Rectal bleeding Is this a current diagnosis for this admission?: YesPlan: Likely secondary diverticular bleed, monitor closely. - Time Time Spent: Greater than 70 Minutes Critical Time spent with patient: 35 or more minutes - Inpatient Certification Based on my medical assessment, after consideration of the patient's comorbidities, presenting symptoms, or acuity I expect that the services needed warrant INPATIENT care.: Yes I certify that my determination is in accordance with my understanding of Medicare's requirements for reasonable and necessary INPATIENT services [42 CFR 412.3e].: Yes Medical Necessity: Need For Continuous Telemetry Monitoring, Need for Surgery, Risk of Complication if Not Cared For in Hospital
[2016-10-19] MEDS: HYDROCODONE/ACETAMINOPHEN 5-325 MG TABLET PO SCH ×2 (09:24→17:26)
[2016-10-19] MEDS: METOPROLOL TARTRATE 25 MG TABLET PO SCH ×2 (09:26→17:30)
[2016-10-19] MEDS ORDERED: LEVOTHYROXINE SODIUM 0.025 MG TABLET PO SCH (10:00)
[2016-10-19] MEDS ORDERED: PANTOPRAZOLE SODIUM 40 MG VIAL IV SCH (10:00)
--- NOTE | 2016-10-19 11:29 | PDOC PROGRESS REPORT ---
Subjective Progress Note for:: 10/19/16 Subjective:: EDWARD DICK is a 81 year old female resident at [facility] with Dr. Zuniga as her primary care provider sent over to the emergency department today when she was noticed to be sitting in a pool of her own blood. 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 She takes daily low-dose aspirin as a result. She has a history of acquired von Willebrand's disease thought secondary to chemotherapy for treatment of her breast cancer for which she also received radical mastectomy and lymph node dissection on the right but no radiation therapy. She is followed by Dr. Soler, hematology for this disease. In fact, she was seen in the emergency department earlier this week with epistaxis, ENT was consulted in the emergency department and placed Rhino Rocket that is due to removed today, and she was given a dose of DDAVP. 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 She has a history of Hemoccult-positive stools and underwent upper and lower endoscopy but that was many years ago and the results are unknown. She has known diverticular disease no history of diverticulitis and no history of diverticular bleed previously. Evaluation in the emergency department she shows grossly bloody stools on exam, her hemoglobin is down to 9.9 from a baseline at [facility] between 11.5 and 12.5. She was given a dose of DDAVP 20 g in the emergency department and again at 2000 hrs. last night. She was started on a Protonix drip after Protonix bolus given but there is no clear evidence that this is an upper GI bleed and so she was changed to once daily dosing of Protonix on 10/19/2016. She is received 1 L of normal saline in the ER, now maintained on maintenance fluids.. We were asked to admit her for further evaluation and management. Dr. Lozano has agreed to see the patient in consultation if lower endoscopy is required. Overnight her hemoglobin dropped to 7.7 and she required 1 unit of packed red blood cells with good results driving hemoglobin above 9 this morning. However , she is now oozing blood around the nasal tampon placed 5 days ago in our ER for treatment of epistaxis at that time. Per Dr. Bui, covering subsystems engineer : "At 7:35 PM, I discussed the patient by phone with Dr. Soler, patient's usual tobacco shaker. His concern is that our facility does not have the capability of measuring her von Willebrand's factor level, nor do we have the capability of transfusing von Willebrand's factor if necessary. He has recommended transferring the patient to a tertiary facility tonight if possible. Neither [facility] nor [facility] have the above capability, either, per Dr. Soler.I subsequently discussed the above recommendation with patient and daughter. Daughter, who is patient's surrogate health care decision maker, agrees with the need for transfer. At 10: 10 PM, I discussed the patient by phone with Dr. Harley on-call hematology fellow at [facility]. Several specific questions were asked. We then were able to arrange conference call with Dr. Soler. Discussion by conference call between Dr. Soler and Dr. Harley. Patient has type I von Willebrand's disease. With this being patient's third episode of bleeding requiring DDAVP since Saturday of last week, combined with Dr. Soler's underlying concern about our facility's inability to manage any further significant bleeding, patient has been graciously accepted at [facility]. Beds are reportedly available." But we are still awaiting transfer. Physical Exam Vital Signs: Temp Pulse Resp BP Pulse Ox 98.3 F 82 18 93/46 L 95 10/19/16 10:49 10/19/16 10:49 10/19/16 10:49 10/19/16 10:49 10/19/16 10:49 Intake & Output 10/18/16 10/19/16 10/20/16 06:59 06:59 06:59 Intake Total 1518 0 Balance 1518 0 Weight 55.6 kg PHYSICAL EXAM GENERAL: Nonverbal and shakes her head no to every question; NAD; well developed; thin; alert and unable to determine if oriented to person, place, time, situation, seems to recognize her family and respond to their voices. HEENT: normocephalic, atraumatic; EOMI, PERRLA, no conjunctival injection, no scleral icterus; oral mucosa moist,; neck supple, no LAD, normal ROM; nasal tampon in place in the left nare with a new soft clot at the os oozing a thick slow stream of dark red blood RESPIRATORY: no accessory muscle use, no increased WOB, good air entry bilaterally; no wheezes, rales, rhonchi; no inspiratory crackles CARDIO: no JVD; RRR; no systolic murmur; no tachycardia VASCULAR: no carotid bruit; no abdominal bruit; no pallor; 2+ radial, DP pulse ; normal capillary refill GI: soft; nondistended; normal bowel sounds; no hepato spleno megaly; no rebound, rigidity, guarding; nontender; :; rectal deferred, already performed by the ER physician, grossly bloody stool noted on the bedclothes in the ER but no melena or hematochezia evident on today's exam NEURO: normal patella reflexes; abnormal motor function with dense right hemiplegia unchanged; MSK: 4/5 strength on the left, flaccid on the right; no tenderness to palpation over the bony prominences EXTREMITIES: no calf tender; no palpable cords in calf; no clubbing, cyanosis , pedal edema SKIN: warm; moist; no petechiae; no telengectasias; no jaundice; no rash but multiple areas of ecchymosis in various stages of healing Results Laboratory Results: 10/19/16 05:17 10/19/16 05:17 10/18/16 10/18/16 10/18/16 15:45 23:10 23:10 WBC 11.9 H 13.4 H RBC 3.25 L 2.76 L Hgb 8.8 L 7.7 L Hct 28.7 L 23.8 L MCV 88 86 MCH 27.0 27.7 MCHC 30.6 L 32.3 RDW 14.4 H 14.7 H Plt Count 297 316 Seg Neutrophils % 79.8 H Lymphocytes % 10.2 L Monocytes % 8.6 Eosinophils % 1.1 Basophils % 0.3 Absolute Neutrophils 10.7 H Absolute Lymphocytes 1.4 Absolute Monocytes 1.2 Absolute Eosinophils 0.1 Absolute Basophils 0.0 Sodium 147.9 H Potassium 3.6 Chloride 110 H Carbon Dioxide 30 Anion Gap 8 BUN 18 Creatinine 0.52 Est GFR ( Amer) > 60 Est GFR (Non-Af Amer) > 60 Glucose 105 Calcium 8.7 Magnesium 10/19/16 10/19/16 05:17 05:17 WBC 10.2 RBC 3.22 L Hgb 9.3 L Hct 27.9 L MCV 87 MCH 28.8 MCHC 33.3 RDW 14.3 H Plt Count 289 Seg Neutrophils % Lymphocytes % Monocytes % Eosinophils % Basophils % Absolute Neutrophils Absolute Lymphocytes Absolute Monocytes Absolute Eosinophils Absolute Basophils Sodium 148.7 H Potassium 3.6 Chloride 111 H Carbon Dioxide 29 Anion Gap 9 BUN 18 Creatinine 0.48 L Est GFR ( Amer) > 60 Est GFR (Non-Af Amer) > 60 Glucose 102 Calcium 8.9 Magnesium 2.0 Impressions: Abdomen/Pelvis CT 10/18/16 09:31 IMPRESSION: COLONIC DIVERTICULOSIS. NO CT FINDINGS OF ACUTE DIVERTICULITIS. NO OTHER SIGNIFICANT OR ACUTE PROCESS IN THE ABDOMEN OR PELVIS. Assessment & Plan - Diagnosis (1) Anemia Qualifiers: Anemia type: other cause Is this a current diagnosis for this admission?: YesPlan: Admitted the patient to [facility] for close hemodynamic monitoring, serial CBC and transfuse red blood cells as her condition warrants. continues bleeding so will transfuse platelets to replace the ones inhibited by her chronic aspirin use. Obviously hold any further antiplatelet therapy and anticoagulation including DVT prophylaxis. Risk and benefits of transfusion of blood products were discussed with the power of attorney law clerk at the bedside, all questions were asked and answered to her satisfaction, and she is agreeable transfusion if becomes clinically indicated. hematology consult appreciated, recommending transfer to tertiary care center for monitoring and replacement of her von Willebrand factor as needed, service we cannot provide here. Consult Dr. Lozano as needed. (2) Rectal bleeding Is this a current diagnosis for this admission?: YesPlan: As above. Most likely a diverticular bleed as the most likely etiology, however with her von Willebrand's disease clearly at risk for AV malformations as well. (3) Von Willebrands disease Is this a current diagnosis for this admission?: YesPlan: As above (4) Nosebleed Is this a current diagnosis for this admission?: YesPlan: Continue nasal tampon, and platelet therapy and consider repeat DDAVP if fails to tamponade. We do not have ENT services, yet another reason for transfer to a tertiary center. (5) CAD (coronary artery disease) Qualifiers: Coronary Disease-Associated Artery/Lesion type: unspecified vessel or lesion type [place] vs. transplanted heart: [place] heart Associated angina: without angina Qualified Code(s): I25.10 - Atherosclerotic heart disease of [place] coronary artery without angina pectoris Is this a current diagnosis for this admission?: YesPlan: Quiescent. Continue home regimen other than antiplatelet therapy. (6) Cerebrovascular accident (CVA) Qualifiers: CVA mechanism: thrombosis Precerebral and cerebral artery: unspecified cerebral artery Qualified Code(s): I63.30 - Cerebral infarction due to thrombosis of unspecified cerebral artery Is this a current diagnosis for this admission?: YesPlan: With dense right hemiplegia. At baseline. Holding antiplatelet therapy. (7) Dysphagia Qualifiers: Dysphagia type: oropharyngeal phase Qualified Code(s): R13.12 - Dysphagia, oropharyngeal phase Is this a current diagnosis for this admission?: YesPlan: Reportedly takes dysphasic soft and thickened liquid diet at the facility (8) HTN (hypertension) Qualifiers: Hypertension type: essential hypertension Qualified Code(s): I10 - Essential (primary) hypertension Is this a current diagnosis for this admission?: YesPlan: Titrated regimen to maintain pressures ideally less than 140/90. (9) Seizure disorder as sequela of cerebrovascular accident Is this a current diagnosis for this admission?: YesPlan: Clarify home regimen and continue usual - Time Time Spent with patient: 35 or more minutes - Much of this time discussing her case with the daughter and at the bedside, they are frustrated that we are incapable of treating her here but understanding of the need for an willing to accept transfer to tertiary center when bed available.
[2016-10-19] MEDS ORDERED: CEPHALEXIN 500 MG CAPSULE PO ONE (13:00)
[2016-10-19 15:22] LABS: HEMATOCRIT 25.6 % (36.0-47.0); HEMOGLOBIN 8.3 g/dL (12.0-15.5); HGB HCT DIFFERENCE -0.7; MEAN CORPUSCULAR HEMOGLOBIN 27.8 pg (27.0-33.4); MEAN CORPUSCULAR HGB CONC 32.2 g/dL (32.0-36.0); MEAN CORPUSCULAR VOLUME 86 fl (80-97); RED BLOOD COUNT 2.96 10^6/uL (3.72-5.28); RED CELL DISTRIBUTION WIDTH 14.5 % (11.5-14.0)
[2016-10-19] MEDS: LEVETIRACETAM 500 MG TABLET PO SCH (17:26)
[2016-10-19] MEDS ORDERED: DESMOPRESSIN ACETATE 20 MCG in NORMAL SALINE 50 ML IV ONE (18:00)
[2016-10-19] MEDS: MIRTAZAPINE 15 MG TABLET PO SCH (21:17)
[2016-10-19] MEDS: ATORVASTATIN CALCIUM 40 MG TABLET PO SCH (21:17)
[2016-10-19] MEDS ORDERED: CEPHALEXIN 500 MG CAPSULE PO SCH (22:00)
[2016-10-19 22:37] VITALS: BP 115/54
== END 2016-10-19 23:20 | disposition short-term general hospital (02) | DRG 378 ==
LOC: ER 07:03 → EH 12:09 → UNDOADMIN 12:37 → EH 12:37 → 3N 18:13
PROVIDERS: ADMIT Internal Medicine; ATTEND Internal Medicine
PROC: 30233R1 Transfusion of Nonautologous Platelets into Peripheral Vein, Percutaneous Approach (ICD-10-PCS; principal; 2016-10-18)
PROC: 30233N1 Transfusion of Nonautologous Red Blood Cells into Peripheral Vein, Percutaneous Approach (ICD-10-PCS; 2016-10-19)
DX: K62.5 Hemorrhage of anus and rectum (principal); D68.0 Von Willebrand disease; I69.351 Hemiplegia and hemiparesis following cerebral infarction affecting right dominant side; D62 Acute posthemorrhagic anemia; I25.10 Atherosclerotic heart disease of native coronary artery without angina pectoris; I69.320 Aphasia following cerebral infarction; I69.321 Dysphasia following cerebral infarction; R13.12 Dysphagia, oropharyngeal phase; I69.398 Other sequelae of cerebral infarction; I10 Essential (primary) hypertension; Z66 Do not resuscitate; E78.5 Hyperlipidemia, unspecified; G47.30 Sleep apnea, unspecified; G40.909 Epilepsy, unspecified, not intractable, without status epilepticus; R04.0 Epistaxis; I48.91 Unspecified atrial fibrillation; I25.2 Old myocardial infarction; Z86.711 Personal history of pulmonary embolism; Z90.49 Acquired absence of other specified parts of digestive tract; Z90.710 Acquired absence of both cervix and uterus; Z85.3 Personal history of malignant neoplasm of breast; Z85.828 Personal history of other malignant neoplasm of skin; Z90.11 Acquired absence of right breast and nipple; Z82.49 Family history of ischemic heart disease and other diseases of the circulatory system; Z79.899 Other long term (current) drug therapy
CPT/HCPCS: 36415; 36430; 74176; 80048; 80053; 82272; 82962; 83735; 85025; 85027; 85610; 86850; 86900; 86901; 86920; 96360; 99285; J2597; J3480; J7030; J7050; P9016; P9035; S0164

== ENCOUNTER → 2017-07-05 | Outpatient (CLI) | payer MEDICARE, OTHER ==
--- NOTE | 2017-07-05 11:15 | RADIOLOGY REPORT (SQ) ---
EXAM DESCRIPTION: CT SOFT TISSUE NECK WITHOUT COMPLETED DATE/TIME: 07/05/2017 9:57 am REASON FOR STUDY: LOCALIZED SWELLING, MASS AND LUMP, NECK R22.1 LOCALIZED SWELLING, MASS AND LUMP, NECK COMPARISON: MRI brain 06/22/2015 MRA neck (angio) 06/22/2015 CT brain 11/23/2015, 06/22/2016 TECHNIQUE: Noncontrast scanning from skull base through lung apices with review of bone, soft tissue and lung windows. Reconstructed coronal and sagittal MPR images reviewed. All images stored on PAC S. All CT scanners at this facility use dose modulation, iterative reconstruction, and/or weight based d osing when appropriate to reduce radiation dose to as low as reasonably achievable (ALARA). [facility]: Dose Right [facility]: CareDose [facility]: Dose Right [facility]: Teradose 4D [facility]: The Black Tux RADIATION DOSE: 13.4 mGy. LIMITATIONS: No IV contrast FINDINGS: SKULL BASE: No bony lesions. Large chronic left MCA distribution infarct. MAJOR SALIVARY GLANDS: No solid or cystic masses. No inflammatory changes. LYMPHADENOPATHY: Patient indicates a palpable abnormality in the right neck along the sternocleidomas toid muscle. This correlates with a 1.9 x 1.3 cm cystic necrotic lymph node level 3, axial image 56. Other adjacent level 3 lymph nodes are as follows: 7 x 5 mm axial image 53 8 x 7 mm axial image 60 5.4 mm and 5.4 mm axial image 60. There is right supraclavicular adenopathy, with a 1.3 x 1 cm lymph node axial image 59. Other smalle r right supraclavicular lymph nodes are present on axial image 74, 9 x 6 millimeters, 10 x 6 mm, and 6 x 5 mm. MUCOSAL MASSES OR ASYMMETRY: No gross mucosal masses or asymmetry. However, with the right cervical adenopathy, evaluation by an ENT is recommended. There is asymmetry of the tongue, the left half of the tongue is smaller than the right without discrete tongue fatty atrophy. LARYNX/CORDS: No abnormal findings. LUNG APICES: Clear. BONES: Intact. THYROID: Small heterogeneous thyroid gland, with 1.3 cm left lower pole thyroid cyst axial image 79. PARANASAL SINUSES: Clear. OTHER: Very heavily calcified carotid bifurcations IMPRESSION: Palpable abnormality correlates with a cystic necrotic right level 3 lymph node. Smalle r lymph nodes in the right neck and right supraclavicular region are also seen. ENT evaluation recommended TECHNICAL DOCUMENTATION: JOB ID: [id number] Quality ID # [id number]: Final reports with documentation of one or more dose reduction techniques (e.g., Au tomated exposure control, adjustment of the mA and/or kV according to patient size, use of iterative reconstruction technique) 2010 [employer]- All Rights Reserved
== END ==
LOC: RAD 09:34
PROVIDERS: ATTEND Internal Medicine
DX: R22.1 Localized swelling, mass and lump, neck (principal)
CPT/HCPCS: 70490

== ENCOUNTER 2017-09-04 00:11 | Emergency (ER) | payer MEDICARE, OTHER ==
--- NOTE | 2017-09-04 00:50 | ER Document Report ---
ED General - General Chief Complaint: Altered Mental Status Stated Complaint: ALTERED MENTAL STATUS Time Seen by Provider: 09/04/17 00:27 Notes: Patient is a pleasant 82-year-old female who was found unresponsive at the half-way. She does have history of seizures. No report of recent infections. Patient is now awake and alert. History is otherwise limited because patient is a history of stroke and is able to nod yes and no and answer some questions but has some difficulty talking due to previous history of stroke. When asked her if she feels okay she nods her head yes. When asked if she has any pain she nods her head no. She does not appear to be in any distress. Accu-Chek by the paramedics was normal. TRAVEL OUTSIDE OF THE [place] IN LAST 30 DAYS: No - Related Data Allergies/Adverse Reactions: No Known Allergies Allergy (Verified 09/04/17 00:44) Past Medical History - Social History Smoking Status: Unknown if Ever Smoked Frequency of alcohol use: None Drug Abuse: None Family History: CAD - Mother of an [place] at age 59 Patient has suicidal ideation: No Patient has homicidal ideation: No - Past Medical History Cardiac Medical History: Reports: Hx Atrial Fibrillation, Hx Heart Attack, Hx Hypercholesterolemia, Hx Hypertension, Hx Pulmonary Embolism Pulmonary Medical History: Reports: Hx Sleep Apnea Neurological Medical History: Reports: Hx Cerebrovascular Accident - Spelled reports she had a stroke during her most recent hospitalization., Hx Seizures Renal/ Medical History: Denies: Hx Peritoneal Dialysis Malignancy Medical History: Reports: Hx Breast Cancer, Hx Skin Cancer Psychiatric Medical History: Denies: Hx Depression Past Surgical History: Reports: Hx Cholecystectomy, Hx Hysterectomy, Hx Mastectomy - right breast 2000, Hx Tubal Ligation - Immunizations Hx Diphtheria, Pertussis, Tetanus Vaccination: Yes Hx Pneumococcal Vaccination: 09/23/14 Review of Systems - Review of Systems Notes: My Normal Review Basic REVIEW OF SYSTEMS: CONSTITUTIONAL : Denies fever, chills, or sweats. Denies recent illness. EENT: Denies eye, ear, throat, or mouth pain or symptoms. Denies nasal or sinus congestion. CARDIOVASCULAR: Denies chest pain. RESPIRATORY: Denies cough, cold, or chest congestion. Denies shortness of breath, difficulty breathing, or wheezing. GASTROINTESTINAL: Denies abdominal pain. Denies nausea, vomiting, or diarrhea. Denies constipation. Last BM: GENITOURINARY: Denies difficulty urinating, painful urination, burning, frequency, or blood in urine. MUSCULOSKELETAL: Denies neck or back pain or joint pain or swelling. SKIN: Denies rash or skin lesions. NEUROLOGICAL: Altered mental status which is now resolved.. Denies headache. Denies weakness or paralysis or loss of use of either side. Denies problems with gait or speech. Denies sensory or motor loss. ALL OTHER SYSTEMS REVIEWED AND NEGATIVE. Physical Exam - Vital signs Vitals: Temp Pulse Resp BP Pulse Ox 97.5 F 76 20 139/79 H 97 09/04/17 00:28 09/04/17 00:28 09/04/17 00:28 09/04/17 00:28 09/04/17 00:28 - Notes Notes: General Appearance: Well nourished, alert, cooperative, no acute distress, no obvious discomfort. Well Appearing. Vitals: reviewed, See vital signs table. Head: no swelling or tenderness to the head Eyes: PERRL, EOMI, Conjuctiva clear Mouth: No decreasd moisture Lungs: No wheezing, No rales, No rhonci, No accessory muscle use, good air exchange bilaterally. Heart: Normal rate, Regular rythm, No murmur, no rub Abdomen: Normal BS, soft, No rigidity, No abdominal tenderness, No guarding, no rebound, Extremities: Weakness from previous stroke., good pulses in all extremities, no swelling or tenderness in the extremities, no edema. Skin: warm, dry, appropriate color, no rash Neuro: Dysphasia, normal affect, responds appropriately to questions. Facial droop consistent with previous stroke. Course - Re-evaluation Re-evalutation: 09/04/17 06:34 Patient's daughter is at bedside. She says that the patient is at her baseline now. Patient is continued to look well since arrival. SPECT patient did have a seizure. I did obtain a CT scan and check for signs of infection. Her workup is negative. Daughter says the patient does occasionally of seizures and the last year her seizures have been more her staring off in space as opposed to actual convulsions. This feels consistent with what was reported at the half-way. Patient looks well and is otherwise has no further complaints at this time. She will be discharged home. I informed the daughter to have her return to ER if she has recurrent frequent seizures, fevers, or appears unwell. Daughter agrees with plan and patient will be discharged home. Dictation of this chart was performed using voice recognition software; therefore, there may be some unintended grammatical errors. - Vital Signs Vital signs: Temp Pulse Resp BP Pulse Ox 97.5 F 73 17 115/62 98 09/04/17 04:45 09/04/17 04:24 09/04/17 04:45 09/04/17 04:45 09/04/17 04:44 - Laboratory Result Diagrams: 09/04/17 00:40 09/04/17 00:40 Laboratory results interpreted by me: 09/04/17 09/04/17 00:40 02:05 Sodium 148.2 H Urine Ascorbic Acid 20 H - EKG Interpretation by Me Additional EKG results interpreted by me: 09/04/17 00:50 EKG is reviewed and interpreted by me. EKG shows normal sinus rhythm with a rate of [address] segment elevation or depression. No ischemic T-wave inversions. Pure interval, QRS duration, QTc intervals are within normal range. Old EKG for comparison is from June 22, 2016. Discharge - Discharge Clinical Impression: Altered mental status Qualifiers: Altered mental status type: transient alteration of awareness Qualified Code(s) : R40.4 - Transient alteration of awareness Condition: Good Disposition: HOME, SELF-CARE Additional Instructions: I suspect Mrs. Diego had a seizure tonight. Hew workup shows no signs of bleeding on the brain, infection, or electrolyte abnormality. Please follow up with her neurologist or doctor within a week. please return to the ER if you has recurrent seizures, fevers, or appears unwell.
[2017-09-04 00:53] LABS: HEMATOCRIT 38.4 % (36.0-47.0); HEMOGLOBIN 12.9 g/dL (12.0-15.5); HGB HCT DIFFERENCE 0.3; MEAN CORPUSCULAR HEMOGLOBIN 29.2 pg (27.0-33.4); MEAN CORPUSCULAR HGB CONC 33.6 g/dL (32.0-36.0); MEAN CORPUSCULAR VOLUME 87 fl (80-97); RED BLOOD COUNT 4.41 10^6/uL (3.72-5.28); RED CELL DISTRIBUTION WIDTH 13.6 % (11.5-14.0); WHITE BLOOD COUNT 4.4 10^3/uL (4.0-10.5)
[2017-09-04 01:05] LABS: ANION GAP 12 (5-19); BLOOD UREA NITROGEN 10 mg/dL (7-20); CALCIUM 9.4 mg/dL (8.4-10.2); CARBON DIOXIDE 29 mmol/L (22-30); CHLORIDE 107 mmol/L (98-107); CREATININE RESULT 0.63 mg/dL (0.52-1.25); GLUCOSE 94 mg/dL (75-110); POTASSIUM 3.8 mmol/L (3.6-5.0); SODIUM 148.2 mmol/L (137-145)
[2017-09-04 01:17] LABS: ABSOLUTE EOSINOPHILS# (MANUAL) 0.1 10^3/uL (0.0-0.6); BASOPHILS % (MANUAL) 0 % (0-2); EOSINOPHILS % (MANUAL) 2 % (0-6); LYMPHOCYTES % (MANUAL) 26 % (13-45); TOTAL CELLS COUNTED 100
[2017-09-04 01:19] LABS: RBC MORPHOLOGY COMMENT NORMO-CYTIC/CHROMIC
--- NOTE | 2017-09-04 01:20 | RADIOLOGY REPORT (SQ) ---
EXAM DESCRIPTION: CHEST SINGLE VIEW CLINICAL HISTORY: altered mental status COMPARISON: 11/23/2015 FINDINGS: Single frontal view of the chest. Low lung volumes. Leads overlie the chest. Postoperative change in the right axillary region. Minimal discoid atelectasis or scarring in the left lung base. The cardiomediastinal silhouette has normal size and contour. No consolidation, pneumothorax, or pleural effusion. No displaced rib fractures identified. Upper abdominal soft tissues are unremarkable. IMPRESSION: 1. No acute pulmonary process identified.
[2017-09-04 02:39] LABS: AMORPHOUS SEDIMENT,URINE TRACE /HPF; APPEARANCE,URINE SLIGHTLY-CLOUDY; BILIRUBIN,URINE NEGATIVE (NEGATIVE); GLUCOSE, URINE NEGATIVE (NEGATIVE); KETONES,URINE NEGATIVE (NEGATIVE); LEUKOCYTE ESTERASE,URINE NEGATIVE (NEGATIVE); NITRITE,URINE NEGATIVE (NEGATIVE); PROTEIN,URINE NEGATIVE (NEGATIVE); URINE SPECIFIC GRAVITY 1.005; UROBILINOGEN,URINE NEGATIVE mg/dL (<2.0)
--- NOTE | 2017-09-04 03:29 | EKG REPORT ---
SEVERITY:- ABNORMAL ECG - SINUS RHYTHM LEFT ANTERIOR FASCICULAR BLOCK : Confirmed by: Justin Ventura 04-Sep-2017 03:28:54
--- NOTE | 2017-09-04 03:42 | RADIOLOGY REPORT (SQ) ---
EXAM DESCRIPTION: CT HEAD WITHOUT CLINICAL HISTORY: altered mental status COMPARISON: 06/22/2016 TECHNIQUE: Axial CT of the head obtained from the skull apex to the skull base without contrast. FINDINGS: No acute intracranial hemorrhage identified. No mass, mass effect, shift of the midline, abnormal extra-axial fluid collection or CT evidence of acute ischemic change identified. The ventricular system and sulcal spaces are mildly enlarged compatible with mild cerebral atrophy. Encephalomalacia in the left MCA distribution. Scattered areas of hypodensity throughout the supratentorial white matter are nonspecific and may be related to chronic small vessel ischemic change. The visualized paranasal sinuses and the mastoids are clear. No skull fracture identified. Visualized orbits and globes are unremarkable. Atherosclerotic calcification of the intracranial internal carotid arteries. DLP: 1033.75 mGy-cm IMPRESSION: 1. No acute intracranial abnormality by CT criteria. 2. Remote infarction in the left MCA distribution with corresponding encephalomalacia. This exam was performed according to our departmental dose-optimization program, which includes automated exposure control, adjustment of the mA and/or kV according to patient size and/or use of iterative reconstruction technique.
[2017-09-04 04:51] VITALS: BP 115/62
== END 2017-09-04 04:58 | disposition home or self-care (01) ==
LOC: ER 00:11
DX: R40.4 Transient alteration of awareness (principal); Z86.73 Personal history of transient ischemic attack (TIA), and cerebral infarction without residual deficits
CPT/HCPCS: 36415; 70450; 71010; 80048; 81001; 84484; 85025; 93005; 93010; 99285

== ENCOUNTER 2017-10-01 10:23 | Inpatient (IN) | payer MEDICARE, OTHER ==
[2017-10-01] MEDS ORDERED: DILTIAZEM HCL INJ 25 MG/5 ML VIAL IV ONE ×2 (10:37→11:52)
[2017-10-01] MEDS ORDERED: DILTIAZEM HCL/D5W 125 MG/125 ML RTUINJ IV PRN (10:37)
[2017-10-01] MEDS ORDERED: NORMAL SALINE 500 ML IV ONE ×3 (10:38→12:40)
[2017-10-01 10:53] LABS: ABSOLUTE LYMPHOCYTES (AUTO) 0.9 10^3/uL (0.5-4.7); ABSOLUTE MONOCYTES (AUTO) 1.7 10^3/uL (0.1-1.4); ABSOLUTE NEUT (AUTO) 9.6 10^3/uL (1.7-8.2); BASOPHILS % (AUTO) 0.4 % (0-2); EOSINOPHILS % (AUTO) 0.1 % (0-6); HEMATOCRIT 34.1 % (36.0-47.0); HEMOGLOBIN 11.1 g/dL (12.0-15.5); LYMPHOCYTES % (AUTO) 7.4 % (13-45); MEAN CORPUSCULAR HGB CONC 32.6 g/dL (32.0-36.0); MEAN CORPUSCULAR VOLUME 86 fl (80-97); MONOCYTES % (AUTO) 13.8 % (3-13); PLATELET COUNT 250 10^3/uL (150-450); RED BLOOD COUNT 3.97 10^6/uL (3.72-5.28); RED CELL DISTRIBUTION WIDTH 14.3 % (11.5-14.0); SEGMENTED NEUTROPHILS % (AUTO) 78.3 % (42-78); TOTAL CELLS COUNTED % (AUTO) 100 %; WHITE BLOOD COUNT 12.2 10^3/uL (4.0-10.5)
[2017-10-01 11:13] LABS: ALANINE AMINOTRANSFERASE 19 U/L (9-52); ALBUMIN 3.2 g/dL (3.5-5.0); ALKALINE PHOSPHATASE 85 U/L (38-126); ANION GAP 11 (5-19); ASPARTATE AMINO TRANSFERASE 29 U/L (14-36); BILIRUBIN,DIRECT 0.4 mg/dL (0.0-0.4); BILIRUBIN,TOTAL 0.8 mg/dL (0.2-1.3); BLOOD UREA NITROGEN 37 mg/dL (7-20); CALCIUM 9.3 mg/dL (8.4-10.2); CARBON DIOXIDE 27 mmol/L (22-30); CHLORIDE 104 mmol/L (98-107); CREATINE KINASE 29 U/L (30-135); GLUCOSE 146 mg/dL (75-110); POTASSIUM 4.4 mmol/L (3.6-5.0); SODIUM 141.6 mmol/L (137-145); TOTAL PROTEIN 5.6 g/dL (6.3-8.2)
[2017-10-01 11:27] LABS: NT PRO BNP 9400 pg/mL (<450); TROPONIN I 0.031 ng/mL
[2017-10-01 11:29] LABS: CREATINE KINASE MB < 0.22 ng/mL (<4.55)
--- NOTE | 2017-10-01 11:44 | ER Document Report ---
ED Cardiac - General Chief Complaint: Irregular Pulse Stated Complaint: GENERAL WEAKNESS Time Seen by Provider: 10/01/17 10:34 Information source: Relative, Transfer Record, Outside Facility Records Notes: coming from nursing facility. History of CVA. Nonverbal. Paralyzed on left side. Began having pale looking. Cough. Not feeling well. On arrival to emergency department patient with heart rate of 170. Hypotensive, pale, coughing, crackles at the bases. Questionable history of atrial fibrillation. TRAVEL OUTSIDE OF THE [place] IN LAST 30 DAYS: No - HPI Patient complains to provider of: Palpitations, Shortness of breath Associated symptoms: None - Related Data Allergies/Adverse Reactions: No Known Allergies Allergy (Verified 09/04/17 00:44) Past Medical History - General Information source: Relative, [facility] Records, Outside Facility Records Cannot obtain history due to: Dementia - Social History Smoking Status: Never Smoker Frequency of alcohol use: None Drug Abuse: None Lives with: Prison Family History: CAD - Mother of an VT at age 59 - Past Medical History Cardiac Medical History: Reports: Hx Atrial Fibrillation, Hx Heart Attack, Hx Hypercholesterolemia, Hx Hypertension, Hx Pulmonary Embolism Pulmonary Medical History: Reports: Hx Sleep Apnea Neurological Medical History: Reports: Hx Cerebrovascular Accident - Spelled reports she had a stroke during her most recent hospitalization., Hx Seizures Renal/ Medical History: Denies: Hx Peritoneal Dialysis Malignancy Medical History: Reports: Hx Breast Cancer, Hx Skin Cancer Psychiatric Medical History: Denies: Hx Depression Past Surgical History: Reports: Hx Cholecystectomy, Hx Hysterectomy, Hx Mastectomy - right breast 2000, Hx Tubal Ligation - Immunizations Hx Diphtheria, Pertussis, Tetanus Vaccination: Yes Hx Pneumococcal Vaccination: 09/23/14 Review of Systems - Review of Systems Constitutional: Weakness EENT: No symptoms reported Cardiovascular: Palpitations, Heart racing Respiratory: Cough Gastrointestinal: No symptoms reported Genitourinary: No symptoms reported Female Genitourinary: No symptoms reported Musculoskeletal: No symptoms reported Skin: No symptoms reported Neurological/Psychological: No symptoms reported Physical Exam - Vital signs Vitals: Resp BP 30 H 71/58 L 10/01/17 10:31 10/01/17 10:31 Interpretation: Normal - General General appearance: Other - Ill-appearing In distress: Moderate - HEENT Head: Normocephalic, Atraumatic Eyes: Normal Pupils: PERRL - Respiratory Respiratory status: No respiratory distress Chest status: Nontender Breath sounds: Decreased air movement, Nonproductive cough Chest palpation: Normal - Cardiovascular Rhythm: Irregularly irregular, Tachycardia Heart sounds: Normal auscultation Murmur: No - Abdominal Inspection: Normal Distension: No distension Bowel sounds: Normal Tenderness: Nontender Organomegaly: No organomegaly - Back Back: Normal, Nontender - Extremities General upper extremity: Normal inspection, Nontender, Normal color, Normal ROM , Normal temperature General lower extremity: Normal inspection, Nontender, Normal color, Normal ROM , Normal temperature, Normal weight bearing. No: Radha's sign - Neurological Neuro grossly intact: No - She with symptoms of aphasia and previous CVA affecting left side peer Curt Coma Scale Eye Opening: Spontaneous Speech: Expressive aphasia - Psychological Associated symptoms: Normal affect, Normal mood - Skin Skin Temperature: Warm Skin Moisture: Dry Skin Color: Normal Course - Re-evaluation Re-evalutation: 10/01/17 11:44 Patient with rapid heart rate of 174. On monitor appears more like atrial fibrillation with an irregular rapid rate. Will order diltiazem at this time. Patient's blood pressure is a little low so adding fluids. Will do cardiac workup, Dil drip, diltiazem bolus and reassess. 10/01/17 12:13 Laboratory 10/01/17 10/01/17 10/01/17 10:42 10:42 10:42 WBC 12.2 H RBC 3.97 Hgb 11.1 L Hct 34.1 L MCV 86 MCH 28.0 MCHC 32.6 RDW 14.3 H Plt Count 250 Seg Neutrophils % 78.3 H Lymphocytes % 7.4 L Monocytes % 13.8 H Eosinophils % 0.1 Basophils % 0.4 Absolute Neutrophils 9.6 H Absolute Lymphocytes 0.9 Absolute Monocytes 1.7 H Absolute Eosinophils 0.0 Absolute Basophils 0.0 Sodium 141.6 Potassium 4.4 Chloride 104 Carbon Dioxide 27 Anion Gap 11 BUN 37 H Creatinine 0.96 Est GFR ( Amer) > 60 Est GFR (Non-Af Amer) 56 L Glucose 146 H Calcium 9.3 Total Bilirubin 0.8 Direct Bilirubin 0.4 Neonat Total Bilirubin Not Reportable Neonat Direct Bilirubin Not Reportable Neonat Indirect Bili Not Reportable AST 29 ALT 19 Alkaline Phosphatase 85 Creatine Kinase 29 L CK-MB (CK-2) < 0.22 Troponin I 0.031 NT-Pro-B Natriuret Pep 9400 H Total Protein 5.6 L Albumin 3.2 L doing better at this time. Heart rate is come down from 177 down to 120. On a diltiazem drip at this time. Blood pressure has come up to 91/61. Continue on the diltiazem drip. Hospitalist consulted. Blood culture added. Dr. Bass will admit patient at this time. - Vital Signs Vital signs: Temp Pulse Resp BP Pulse Ox 98.5 F 27 H 98/77 L 95 10/01/17 10:45 10/01/17 12:00 10/01/17 12:00 10/01/17 12:00 - Laboratory Result Diagrams: 10/01/17 10:42 10/01/17 10:42 Laboratory results interpreted by me: 10/01/17 10/01/17 10/01/17 10:42 10:42 10:42 WBC 12.2 H Hgb 11.1 L Hct 34.1 L RDW 14.3 H Seg Neutrophils % 78.3 H Lymphocytes % 7.4 L Monocytes % 13.8 H Absolute Neutrophils 9.6 H Absolute Monocytes 1.7 H BUN 37 H Est GFR (Non-Af Amer) 56 L Glucose 146 H Creatine Kinase 29 L NT-Pro-B Natriuret Pep 9400 H Total Protein 5.6 L Albumin 3.2 L - EKG Interpretation by Me Rate: Tachycardia Rhythm: A.Fib Critical Care Note - Critical Care Note Total time excluding time spent on procedures (mins): 60 Comments: Cardiovascular, respiratory Discharge - Discharge Clinical Impression: Atrial fibrillation with rapid ventricular response Heart failure Qualifiers: Heart failure type: unspecified Heart failure chronicity: unspecified Qualified Code(s): I50.9 - Heart failure, unspecified Condition: Fair Disposition: ADMITTED INPATIENT Admitting Provider: Jarredist - [facility] Unit Admitted: [facility]
--- NOTE | 2017-10-01 12:21 | RADIOLOGY REPORT (SQ) ---
EXAM DESCRIPTION: CHEST SINGLE VIEW COMPLETED DATE/TIME: 10/01/2017 11:53 am REASON FOR STUDY: sob COMPARISON: AP chest 09/04/2017 EXAM PARAMETERS: NUMBER OF VIEWS: One view. TECHNIQUE: Single frontal radiographic view of the chest acquired. RADIATION DOSE: NA LIMITATIONS: None. FINDINGS: LUNGS AND PLEURA: Patchy bilateral alveolar and interstitial infiltrates worrisome for the edema. Pneumonia could not be entirely excluded. No pleural effusion. No pneumothorax. MEDIASTINUM AND HILAR STRUCTURES: No masses. Contour normal. HEART AND VASCULAR STRUCTURES: Mild cardiomegaly. Calcified mitral annulus BONES: No acute findings. HARDWARE: Old surgical clips right axilla. Post right mastectomy OTHER: No other significant finding. IMPRESSION: Alveolar and interstitial infiltrates from edema. Pneumonia could not entirely be exclu ded. TECHNICAL DOCUMENTATION: JOB ID: [id number] [employer]- All Rights Reserved
[2017-10-01 12:22] LABS: APPEARANCE,URINE CLOUDY; BILIRUBIN,URINE NEGATIVE (NEGATIVE); COLOR,URINE AMBER; GLUCOSE, URINE NEGATIVE (NEGATIVE); KETONES,URINE TRACE mg/dL (NEGATIVE); LEUKOCYTE ESTERASE,URINE LARGE (NEGATIVE); NITRITE,URINE NEGATIVE (NEGATIVE); PROTEIN,URINE 100 mg/dL (NEGATIVE); UROBILINOGEN,URINE NEGATIVE mg/dL (<2.0)
--- NOTE | 2017-10-01 13:13 | EKG REPORT ---
SEVERITY:- ABNORMAL ECG - SUPRAVENTRICULAR TACHYCARDIA VENTRICULAR PREMATURE COMPLEX PROBABLE INFERIOR INFARCT, OLD : Confirmed by: Tobi Lees MD 01-Oct-2017 13:13:03
[2017-10-01] MEDS ORDERED: AMIODARONE HCL 150 MG in DEXTROSE 5%-WATER 100 ML IV ONE (15:00)
[2017-10-01] MEDS ORDERED: ONDANSETRON 4 MG TAB.RAPDIS PO PRN (15:09)
[2017-10-01] MEDS ORDERED: ACETAMINOPHEN 325 MG TABLET PO PRN ×2 (15:09→15:48)
[2017-10-01] MEDS: DEXTROSE 5%-WATER 500 ML with AMIODARONE HCL 900 MG IV PRN ×4 (15:28→18:08)
--- NOTE | 2017-10-01 15:48 | PDOC H&P ---
History of Present Illness Admission Date/PCP: 10/01/17 12:30 Patient complains of: Irregular heart beat, weakness, lethargy History of Present Illness: EDWARD DICK is a 82 year old female who presents from home with 2-3 days of weakness and lethargy. Most of history is obtained by patient's son and daughter who are at bedside. She has become increasingly weak at home. Inability to walk or talk. She has a new cough, with clear sputum production. She did not have shortness of breath, chest pain, nausea, or vomiting. No worsening lower extremity edema. PO Intake has been worse. Of note patient has CVA with persistent left sided weakness. Code status is DNI/DNR, per discussion with patient's who was also at bedside. He is OK with procedures that will "help keep her alive". Past Medical History Cardiac Medical History: Reports: Atrial Fibrillation, Myocardial Infarction, Hyperlipidema, Hypertension, Pulmonary Embolism Pulmonary Medical History: Reports: Sleep Apnea Neurological Medical History: Reports: Seizures Malignancy Medical History: Reports: Breast Cancer, Skin Cancer Psychiatric Medical History: Denies: Depression Hematology: Reports: Anemia - Von Wildebrands, Bleeding Tendencies - Acquired Von Willebrand's disease Past Surgical History Past Surgical History: Reports: Cholecystectomy, Hysterectomy, Mastectomy - right breast 2000, Tubal Ligation Social History Information Source: Relative - Son, daughter, and Lives with: Spouse/Significant other, Half-Way Smoking Status: Never Smoker Frequency of Alcohol Use: None Hx Recreational Drug Use: No Hx Prescription Drug Abuse: No - Advance Directive Resuscitation Status: Do Not Resuscitate - DNI/DNR Family History Family History: CAD - Mother of an [place] at age 59 Parental Family History Reviewed: No Children Family History Reviewed: NA Sibling(s) Family History Reviewed.: NA Medication/Allergy Home Medications: Acetaminophen [Tylenol 325 mg Tablet] 325 mg PO Q6HP PRN 10/01/17 Atorvastatin Calcium [Lipitor 40 mg Tablet] 40 mg PO QHS 10/01/17 Calcium Carbonate/Vitamin D3 [Calcium 500-Vit D3 200 Tablet] 1 tab PO BID Carboxymethylcellulose Sodium [Refresh Tears] 1 drop OS BID 10/01/17 Docusate Sodium [Colace 100 mg Capsule] 100 mg PO BID 10/01/17 Famotidine [Pepcid 20 mg Tablet] 20 mg PO QHS 10/01/17 Guaifenesin [Tussin] 10 ml PO Q4HP PRN 10/01/17 Juniper/Marilee/Znox/Pet,Wh/Babatunde [Endit Ointment] 1 applic TOP BID 10/01/17 Lactulose [Enulose 10 gm/15 mL Oral Solution] 15 ml PO BID 10/01/17 Levetiracetam [Keppra 500 mg Tablet] 1,000 mg PO QPM 10/01/17 Levetiracetam [Keppra 500 mg Tablet] 500 mg PO QPM 10/01/17 Levothyroxine Sodium [Synthroid 0.025 mg Tablet] 0.025 mg PO Q6AM 10/01/17 Loperamide HCl [Imodium 2 mg Capsule] 2 mg PO DAILYP PRN 10/01/17 Metoprolol Tartrate [Lopressor 25 mg Tablet] 12.5 mg PO Q12 10/01/17 Mirtazapine [Remeron 15 mg Tablet] 7.5 mg PO QHS 10/01/17 Promethazine HCl [Phenergan 25 mg Supp.rect] 25 mg [place] Q12HP PRN 10/01/17 Sennosides [Senna] 8.6 mg PO BID 10/01/17 Allergies/Adverse Reactions: No Known Allergies Allergy (Verified 09/04/17 00:44) Review of Systems Constitutional: PRESENT: anorexia, chills, weakness Respiratory: PRESENT: cough, sputum Neurological: PRESENT: abnormal gait, abnormal movements, focal weakness Physical Exam Vital Signs: Temp Pulse Resp BP Pulse Ox 98.5 F 22 H 82/57 L 96 10/01/17 10:45 10/01/17 13:41 10/01/17 13:41 10/01/17 13:41 Intake & Output 09/30/17 10/01/17 10/02/17 06:59 06:59 06:59 Weight 53 kg General appearance: PRESENT: other - Elderly, frail appearing woman, resting in bed Head exam: PRESENT: atraumatic, normocephalic Eye exam: PRESENT: conjunctiva pale Mouth exam: PRESENT: moist Neck exam: ABSENT: JVD, lymphadenopathy Respiratory exam: PRESENT: decreased breath sounds, other - poor inspiratory effort Cardiovascular exam: PRESENT: irregular rhythm, tachycardia GI/Abdominal exam: PRESENT: soft. ABSENT: guarding, tenderness Rectal exam: PRESENT: deferred Extremities exam: ABSENT: pedal edema Neurological exam: PRESENT: awake, other - Nods head to questions Psychiatric exam: ABSENT: agitated, anxious Skin exam: PRESENT: warm Results Laboratory Results: Labs- All tests 24 hr 10/01/17 10/01/17 10/01/17 10:42 10:42 10:42 WBC 12.2 H RBC 3.97 Hgb 11.1 L Hct 34.1 L MCV 86 MCH 28.0 MCHC 32.6 RDW 14.3 H Plt Count 250 Seg Neutrophils % 78.3 H Lymphocytes % 7.4 L Monocytes % 13.8 H Eosinophils % 0.1 Basophils % 0.4 Absolute Neutrophils 9.6 H Absolute Lymphocytes 0.9 Absolute Monocytes 1.7 H Absolute Eosinophils 0.0 Absolute Basophils 0.0 Sodium 141.6 Potassium 4.4 Chloride 104 Carbon Dioxide 27 Anion Gap 11 BUN 37 H Creatinine 0.96 Est GFR ( Amer) > 60 Est GFR (Non-Af Amer) 56 L Glucose 146 H Calcium 9.3 Total Bilirubin 0.8 Direct Bilirubin 0.4 Neonat Total Bilirubin Not Reportable Neonat Direct Bilirubin Not Reportable Neonat Indirect Bili Not Reportable AST 29 ALT 19 Alkaline Phosphatase 85 Creatine Kinase 29 L CK-MB (CK-2) < 0.22 Troponin I 0.031 NT-Pro-B Natriuret Pep 9400 H Total Protein 5.6 L Albumin 3.2 L Urine Color Urine Appearance Urine pH Ur Specific [place] Urine Protein Urine Glucose (UA) Urine Ketones Urine Blood Urine Nitrite Urine Bilirubin Urine Urobilinogen Ur Leukocyte Esterase Urine WBC (Auto) Urine RBC (Auto) Urine Bacteria (Auto) Urine WBC Clumps Urine Mucus (Auto) Urine Ascorbic Acid 10/01/17 12:00 WBC RBC Hgb Hct MCV MCH MCHC RDW Plt Count Seg Neutrophils % Lymphocytes % Monocytes % Eosinophils % Basophils % Absolute Neutrophils Absolute Lymphocytes Absolute Monocytes Absolute Eosinophils Absolute Basophils Sodium Potassium Chloride Carbon Dioxide Anion Gap BUN Creatinine Est GFR ( Amer) Est GFR (Non-Af Amer) Glucose Calcium Total Bilirubin Direct Bilirubin Neonat Total Bilirubin Neonat Direct Bilirubin Neonat Indirect Bili AST ALT Alkaline Phosphatase Creatine Kinase CK-MB (CK-2) Troponin I NT-Pro-B Natriuret Pep Total Protein Albumin Urine Color FLORA Urine Appearance CLOUDY Urine pH 5.0 Ur Specific [place] 1.020 Urine Protein 100 H Urine Glucose (UA) NEGATIVE Urine Ketones TRACE H Urine Blood NEGATIVE Urine Nitrite NEGATIVE Urine Bilirubin NEGATIVE Urine Urobilinogen NEGATIVE Ur Leukocyte Esterase LARGE H Urine WBC (Auto) >182 Urine RBC (Auto) 3 Urine Bacteria (Auto) 1+ Urine WBC Clumps MANY Urine Mucus (Auto) FEW Urine Ascorbic Acid 40 H Chest X-Ray 10/01/17 10:38 IMPRESSION: Alveolar and interstitial infiltrates from edema. Pneumonia could not entirely be excluded. Temp Pulse Resp BP Pulse Ox 98.5 F 28 H 91/71 L 95 10/01/17 10:45 10/01/17 15:28 10/01/17 15:28 10/01/17 15:28 Impressions: Chest X-Ray 10/01/17 10:38 IMPRESSION: Alveolar and interstitial infiltrates from edema. Pneumonia could not entirely be excluded. Assessment & Plan - Diagnosis (1) Atrial fibrillation with RVR Plan: - Etiology not entirely clear; could be secondary to acute CHF or infection. Will continue to work up - In ED was started on IV Diltiazem 5 with some improvement in BP however noted to have decreased systolic BP - Transitioned to Amiodorone, bolus followed by continuous plus IV Digoxin 0.5 mg - Will assess for underlying causes of Afib including acute CHF exacerbation and infectious etiologies (2) Heart failure Qualifiers: Heart failure type: unspecified Heart failure chronicity: unspecified Qualified Code(s): I50.9 - Heart failure, unspecified Is this a current diagnosis for this admission?: Yes Plan: Patient with known history of heart failure, most recent TTE not available on record - Admission labs notable for elevated BNP. On exam, clinically euvolemic. - Given hypotension, will not diuresis. May given gentle IVF. Continue to monitor I&Os, daily weights, renal function (3) Acute kidney injury Plan: Based on GFR and age. Will continue to monitor with daily BMP. Avoid nephrotoxins (5) Generalized weakness Plan: Secondary to other issues. Upon addressing, expect improvement in symptoms (6) Hypotension Qualifiers: Hypotension type: hypotension due to drug Qualified Code(s): I95.2 - Hypotension due to drugs Plan: Likely secondary to IV Dilt. Giving conservative IVF bolus, given acute CHF exacerbation. - If blood pressure remain soft, will consider pressors in ICU (1. vasopressin 2. levophed) - Time Time Spent: 50 to 70 Minutes Critical Time spent with patient: 15-24 minutes Medications reviewed and adjusted accordingly: Yes Within: Other - When medically stable Disposition: Admit to ICU - Inpatient Certification Based on my medical assessment, after consideration of the patient's comorbidities, presenting symptoms, or acuity I expect that the services needed warrant INPATIENT care.: Yes I certify that my determination is in accordance with my understanding of Medicare's requirements for reasonable and necessary INPATIENT services [42 CFR 412.3e].: Yes Medical Necessity: Need Close Monitoring Due to Risk of Patient Decompensation - Afib with RVR, hypotension
[2017-10-01] MEDS ORDERED: DIGOXIN INJ 0.5 MG/2 ML AMPULE IV ONE (16:00)
[2017-10-01] MEDS: CARBOXYMETHYLCELLULOSE SOD 0.5% 0.4 ML DROPERETTE OS SCH (17:58)
[2017-10-01] MEDS ORDERED: (PENDING PHARMACY ID) (Carboxymethylcellulose Sodium [Refresh Tears] 1 DROP) OS SCH (18:00)
[2017-10-01] MEDS: LEVETIRACETAM 500 MG TABLET PO SCH (19:17)
[2017-10-01] MEDS: NORMAL SALINE 1000 ML 1,000 ML IV PRN (19:18)
--- NOTE | 2017-10-01 19:25 | XCELERA REPORT ---
[address] [address] Transthoracic Echocardiogram Report Name: EDWARD DICK Age: 82 yrs Gender: Female : 1935 Patient Status: Inpatient Patient Location: [place] [address]^A Study Date: 10/01/2017 01:29 PM Height: 66 in Weight: 115 lb BSA: 1.6 m2 Procedure: A complete two-dimensional transthoracic echocardiogram was performed (2D, M-mode, spectral and color flow Doppler). The study was technically difficult with many images being suboptimal in quality. Reason For Study: Afib with RVR Ordering Physician: CARLOS BURKS Performed By: Gala Gordon Interpretation Summary The left ventricular ejection fraction is preserved. There is moderate concentric left ventricular hypertrophy. The left ventricle is grossly normal size. LV diastolic function could not be adequately assessed due to atrial fibrilation. Regional wall motion abnormalities cannot be excluded due to limited visualization. The right ventricular systolic function is normal. The right atrium is normal in size The left atrium is dilated There is a mild amount of mitral regurgitation There is no mitral valve stenosis. There is a trace amount of aortic regurgitation There is no aortic valve stenosis There is a trace to mild amount of tricuspid regurgitation Tricuspid regurgitation jet envelope not well defined to measure RV systolic pressure accurately. The aortic root is not well visualized. The inferior vena cava appeared normal and decreased < 50% with respiration (RAP 10-15 mmHg) There is no pericardial effusion. MMode/2D Measurements & Calculations RVDd: 2.4 cm LVIDd: 3.9 cm FS: 32.5 % Ao root diam: 2.7 cm IVSd: 1.6 cm LVIDs: 2.6 cm EDV(Teich): 64.2 ml LVPWd: 1.0 cm ESV(Teich): 24.7 ml Ao root area: 5.6 cm2 EF(Teich): 61.6 % Doppler Measurements & Calculations MV E max anisa: MV dec slope: Ao V2 max: LV V1 max P.2 cm/sec 195.4 cm/sec 2.5 mmHg MV A max anisa: 465.8 cm/sec2 Ao max PG: LV V1 max: 0.72 cm/sec MV dec time: 15.3 mmHg 79.7 cm/sec MV E/A: 189.4 0.29 sec PA V2 max: PI end-d anisa: TR max anisa: 122.1 cm/sec 131.0 cm/sec 244.9 cm/sec PA max P.0 mmHg TR max P.3 mmHg Left Ventricle The left ventricle is grossly normal size. There is moderate concentric left ventricular hypertrophy. The left ventricular ejection fraction is preserved. LV diastolic function could not be adequately assessed due to atrial fibrilation. Regional wall motion abnormalities cannot be excluded due to limited visualization. Right Ventricle The right ventricle is grossly normal size. There is normal right ventricular wall thickness. The right ventricular systolic function is normal. Atria The right atrium is normal in size. The left atrium is dilated. Interarterial septum not well visualized and not well dopplered. Cannot comment on ASD/PFO presence. Mitral Valve There is moderate mitral leaflet calcification. There is no mitral valve stenosis. There is a mild amount of mitral regurgitation. Aortic Valve The aortic valve is not well visualized secondary to technical limitations. There is no aortic valve stenosis. There is a trace amount of aortic regurgitation. Tricuspid Valve The tricuspid valve is not well visualized secondary to technical limitations. There is no tricuspid stenosis. There is a trace to mild amount of tricuspid regurgitation. Tricuspid regurgitation jet envelope not well defined to measure RV systolic pressure accurately. Pulmonic Valve The pulmonic valve is not well seen, but is grossly normal. Great Vessels The aortic root is not well visualized. The inferior vena cava appeared normal and decreased < 50% with respiration (RAP 10-15 mmHg). Effusions There is no pericardial effusion. : CARLOS BURKS > Justin Ventura
[2017-10-01 19:48] LABS: FREE T4 (FREE THYROXINE) 1.98 ng/dL (0.78-2.19)
[2017-10-01 20:02] LABS: THYROID STIMULATING HORMONE 1.25 uIU/mL (0.47-4.68)
--- NOTE | 2017-10-01 20:17 | PDOC CONSULTATION ---
Consultation Consult Date: 10/01/17 Attending physician:: TREVER MILLIGAN Consult reason:: Atrial fibrillation with rapid ventricular response History of Present Illness Admission Date/PCP: 10/01/17 12:30 Patient complains of: Shortness of breath History of Present Illness: EDWARD DICK is a 82 year old female who presents from home with 2-3 days of weakness and lethargy. Most of history is obtained by patient's son and daughter who are at bedside. She has become increasingly weak at home. Inability to walk or talk. She has a new cough, with clear sputum production. She did not have shortness of breath, chest pain, nausea, or vomiting. No worsening lower extremity edema. PO Intake has been worse. Of note patient has CVA with persistent left sided weakness. Code status is DNI/DNR, per discussion with patient's who was also at bedside. He is OK with procedures that will "help keep her alive". This history was reviewed and confirmed. Past Medical History Cardiac Medical History: Reports: Atrial Fibrillation, Myocardial Infarction, Hyperlipidema, Hypertension, Pulmonary Embolism Pulmonary Medical History: Reports: Sleep Apnea Neurological Medical History: Reports: Seizures Malignancy Medical History: Reports: Breast Cancer, Skin Cancer Psychiatric Medical History: Denies: Depression Hematology: Reports: Anemia - [place], Bleeding Tendencies - Acquired Von Willebrand's disease Past Surgical History Past Surgical History: Reports: Cholecystectomy, Hysterectomy, Mastectomy - right breast 2000, Tubal Ligation Social History Information Source: Patient Lives with: Spouse/Significant other, [facility] Smoking Status: Never Smoker Frequency of Alcohol Use: None Hx Recreational Drug Use: No Hx Prescription Drug Abuse: No - Advance Directive Resuscitation Status: Do Not Resuscitate - DNI/DNR Surrogate healthcare decision maker:: Patient's is a surrogate decision-maker Family History Family History: CAD - Mother of an MO at age 59 Parental Family History Reviewed: Yes Children Family History Reviewed: Yes Sibling(s) Family History Reviewed.: Yes Medication/Allergy Home Medications: Acetaminophen [Tylenol 325 mg Tablet] 325 mg PO Q6HP PRN 10/01/17 Atorvastatin Calcium [Lipitor 40 mg Tablet] 40 mg PO QHS 10/01/17 Calcium Carbonate/Vitamin D3 [Calcium 500-Vit D3 200 Tablet] 1 tab PO BID Carboxymethylcellulose Sodium [Refresh Tears] 1 drop OS BID 10/01/17 Docusate Sodium [Colace 100 mg Capsule] 100 mg PO BID 10/01/17 Famotidine [Pepcid 20 mg Tablet] 20 mg PO QHS 10/01/17 Guaifenesin [Tussin] 10 ml PO Q4HP PRN 10/01/17 Juniper/Marilee/Znox/Pet,Wh/Babatunde [Endit Ointment] 1 applic TOP BID 10/01/17 Levetiracetam [Keppra 500 mg Tablet] 1,000 mg PO QAM 10/01/17 Levetiracetam [Keppra 500 mg Tablet] 500 mg PO QPM 10/01/17 Levothyroxine Sodium [Synthroid 0.025 mg Tablet] 0.025 mg PO Q6AM 10/01/17 Metoprolol Tartrate [Lopressor 25 mg Tablet] 12.5 mg PO Q12 10/01/17 Mirtazapine [Remeron 15 mg Tablet] 7.5 mg PO QHS 10/01/17 Sennosides [Senna] 8.6 mg PO BID 10/01/17 Sulfamethoxazole/Trimethoprim [Bactrim Ds Tablet] 1 each PO BID 2 Days #4 tablet 10/03/17 Allergies/Adverse Reactions: No Known Allergies Allergy (Verified 09/04/17 00:44) Review of Systems Review of Systems: Please see history of present illness and past medical history as wall. Constitutional: No fever or chills reported. Head : No recent chronic headaches, recent head injury. Eyes: No recent eye pain, diplopia, redness, discharge, acute visual changes. Ears: No recent chronic ear pain, acute hearing loss, ear discharge. Oral cavity: No recent ulcerations, bleeding, oral cavity discomfort. Neck: No recent acute neck pain reported. Hematologic: No recent easy bruising or bleeding or hematologic malignancy reported. Lymphatic: No recent lymphatic malignancy, chronic lymphadenopathy reported yet Cardiovascular system review: See history of present illness. Respiratory system review: No recent chronic cough, hemoptysis, blood clots in the lungs reported. Mild Shortness of breath on exertion Gastrointestinal system review: Negative for any recent acute or chronic abdominal pain, hematemesis, melena, recent change in bowel habits. Genitourinary system review: No recent acute or chronic hematuria, flank pain, UTI etc. reported. Skin system review: Negative for any recent abnormal bruising, no rash, no pruritus reported. Neurologic: No prior history of strokes, mini strokes, seizure disorder. Psychologic: No history of major psychosis or major depression reported. Musculoskeletal: Minor aches and pains reported. No acute joint swelling reported. Endocrine: No recent polyuria, polydipsia, recent heat or cold intolerance. Physical Exam Vital Signs: Temp Pulse Resp BP Pulse Ox 98.5 F 23 H 101/44 L 98 10/01/17 18:45 10/01/17 19:01 10/01/17 19:01 10/01/17 19:01 Intake & Output 09/30/17 10/01/17 10/02/17 06:59 06:59 06:59 Weight 53 kg Exam: GENERAL: well-nourished and in no acute distress. Alert and oriented x3 HEAD: Atraumatic, normocephalic. EYES: Pupils equal round and reactive to light, extraocular movements intact, sclera anicteric, conjunctiva are normal. ENT: TMs normal, nares patent, oropharynx clear without exudates. Moist mucous membranes. No oral ulcerations or bleeding gums noted NECK: supple without lymphadenopathy. Trachea is central. No cervical or axillary lymphadenopathy noted. Carotids are 2+, JVD WNL LUNGS: Respiration seems nonlabored, no significant accessory muscle action noted. Breath sounds clear to auscultation bilaterally and equal noted. No wheezes rales or rhonchi noted. No significant dullness noted on percussion. CHEST: Palpation of the chest wall shows no significant chest wall tenderness. No other significant abnormalities noted. HEART: [place] [employer], No PSH, 1/6 JAYME aortic area, 1/6 morgan systolic murmur mitral area, no rubs, no gallops. ABDOMEN: Soft, no significant tenderness appreciated, normoactive bowel sounds. No guarding, no rebound. No rigidity noted . No masses appreciated. EXTREMITIES: Pedal pulses are 1-2+, no calf tenderness noted. No clubbing or cyanosis.trace to 1+ pedal edema noted NEUROLOGICAL: Focused neurological exam showed right sided weakness with significant difficulty with speech. Patient not very ambulatory. PSYCH: Normal mood, normal affect. Judgment and insight within normal limits. SKIN: No significant ecchymosis, rash, ulcerations or signs of pruritus noted. MUSCULOSKELETAL EXAM: No significant joint swelling noted. Results EKG Comments: Atrial fibrillation with rapid ventricular response. No acute ST-T wave changes noted Impressions: Chest X-Ray 10/01/17 10:38 IMPRESSION: Alveolar and interstitial infiltrates from edema. Pneumonia could not entirely be excluded. Assessment & Plan - Diagnosis (1) Atrial fibrillation with RVR Is this a current diagnosis for this admission?: Yes (2) Abnormal thyroid function test Is this a current diagnosis for this admission?: Yes (3) CAD (coronary artery disease) Qualifiers: Coronary Disease-Associated Artery/Lesion type: unspecified vessel or lesion type [place] vs. transplanted heart: [place] heart Associated angina: without angina Qualified Code(s): I25.10 - Atherosclerotic heart disease of [place] coronary artery without angina pectoris Is this a current diagnosis for this admission?: Yes (4) Cerebrovascular accident (CVA) Qualifiers: CVA mechanism: thrombosis Precerebral and cerebral artery: unspecified cerebral artery Qualified Code(s): I63.30 - Cerebral infarction due to thrombosis of unspecified cerebral artery Is this a current diagnosis for this admission?: Yes (5) HTN (hypertension) Qualifiers: Hypertension type: essential hypertension Qualified Code(s): I10 - Essential (primary) hypertension Is this a current diagnosis for this admission?: Yes - Notes Notes: Consulted for atrial fibrillation with rapid ventricular response. Patient already on Cardizem drip and somewhat hypotensive. Patient currently getting IV fluids. It was felt that rate control will be important. In this regard advised amiodarone bolus and drip protocol and also IV digoxin. As regards anticoagulation, it may need to be reviewed very closely as there are some contraindications based on review of history. Will take some time to address this after discussion with other specialist involved and family member. Currently agree with low-dose DVT prophylaxis Lovenox. Should chronic anticoagulation be considered then Eliquis at 2.5 mg p.o. twice daily should be the dose that should be chosen in this elderly lady with low body weight. - Time Time Spent: 30 to 50 Minutes - CODE STATUS : was discussed, patient remains DO NOT RESUSCITATE. Surrogate decision-maker patient's . Multiple medical problems were addressed. More than 50% of the time spent coordinating care, discussing management plans with involved caregivers. Management plans discussed with involved personnels. Medical decision making was of moderate to high complexity, patient's has multiple comorbidities. Medications reviewed and adjusted accordingly: Yes
[2017-10-01] MEDS: CEFTRIAXONE 2 GM/D5W RTU 2 GM/50 ML RTUPB IV SCH (21:17)
[2017-10-01] MEDS: ATORVASTATIN CALCIUM 40 MG TABLET PO SCH (22:24)
[2017-10-01] MEDS: FAMOTIDINE 20 MG TABLET PO SCH (22:25)
[2017-10-01] MEDS: MIRTAZAPINE 15 MG TABLET PO SCH (22:25)
[2017-10-02] MEDS: NORMAL SALINE 1000 ML 1,000 ML IV PRN ×2 (03:17→17:22)
[2017-10-02] MEDS: LEVOTHYROXINE SODIUM 0.025 MG TABLET PO SCH (05:53)
[2017-10-02 08:03] LABS: ABSOLUTE LYMPHOCYTES (AUTO) 0.7 10^3/uL (0.5-4.7); ABSOLUTE MONOCYTES (AUTO) 0.9 10^3/uL (0.1-1.4); ABSOLUTE NEUT (AUTO) 5.2 10^3/uL (1.7-8.2); BASOPHILS % (AUTO) 0.5 % (0-2); EOSINOPHILS % (AUTO) 0.6 % (0-6); HEMATOCRIT 25.7 % (36.0-47.0); LYMPHOCYTES % (AUTO) 10.1 % (13-45); MEAN CORPUSCULAR HEMOGLOBIN 28.5 pg (27.0-33.4); MEAN CORPUSCULAR VOLUME 86 fl (80-97); MONOCYTES % (AUTO) 13.1 % (3-13); PLATELET COUNT 210 10^3/uL (150-450); RED BLOOD COUNT 2.98 10^6/uL (3.72-5.28); RED CELL DISTRIBUTION WIDTH 14.6 % (11.5-14.0); SEGMENTED NEUTROPHILS % (AUTO) 75.7 % (42-78); TOTAL CELLS COUNTED % (AUTO) 100 %; WHITE BLOOD COUNT 6.8 10^3/uL (4.0-10.5)
[2017-10-02 08:08] LABS: ANION GAP 8 (5-19); BLOOD UREA NITROGEN 20 mg/dL (7-20); CALCIUM 7.4 mg/dL (8.4-10.2); CARBON DIOXIDE 20 mmol/L (22-30); CHLORIDE 112 mmol/L (98-107); GLUCOSE 198 mg/dL (75-110); HEMOGLOBIN 8.5 g/dL (12.0-15.5); MAGNESIUM 1.9 mg/dL (1.6-2.3); PHOSPHORUS 2.1 mg/dL (2.5-4.5); POTASSIUM 3.9 mmol/L (3.6-5.0); SODIUM 139.6 mmol/L (137-145)
--- NOTE | 2017-10-02 09:52 | ER Document Report ---
Doctor's Note Notes: 10/02/17 09:[address] THOMPSON, HE WAS UPDATED ON PATIENT, AGREE'S PATIENT MAY BE DOWNGRADED TO IMCU. PT ACCESS AND ELECTRONIC TEST TECHNICIAN NOTIFIED
[2017-10-02] MEDS: ENOXAPARIN SODIUM INJ 40 MG/0.4 ML DISP.SYRIN SUBCUT SCH (10:05)
[2017-10-02] MEDS: LEVETIRACETAM 500 MG TABLET PO SCH ×2 (10:05→20:30)
[2017-10-02] MEDS: MEGESTROL ACETATE SUSP 400 MG/10 ML UDCUP PO SCH (10:06)
[2017-10-02] MEDS: CARBOXYMETHYLCELLULOSE SOD 0.5% 0.4 ML DROPERETTE OS SCH ×2 (10:06→20:36)
--- NOTE | 2017-10-02 16:24 | PDOC PROGRESS REPORT ---
Subjective Progress Note for:: 10/02/17 Subjective:: 82 year old female who presents from home with 2-3 days of weakness and lethargy. She has become increasingly weak at home. Inability to walk or talk. She has a new cough, with clear sputum production. She did not have shortness of breath, chest pain, nausea, or vomiting. No worsening lower extremity edema. PO Intake has been worse. Of note patient has CVA with persistent left sided weakness. No overnight events. Improved HR and BP on amio GTT. Denies fevers, chills, CP, SOB, abdominal pain, NV. Mental status is improved. Reason For Visit: AFIB WITH RVR,WEAKNESS Physical Exam Vital Signs: Temp Pulse Resp BP Pulse Ox 98.3 F 25 H 101/45 L 96 10/02/17 06:53 10/02/17 14:30 10/02/17 14:30 10/02/17 14:30 Intake & Output 10/01/17 10/02/17 10/03/17 06:59 06:59 06:59 Weight 53 kg General appearance: PRESENT: no acute distress, other - Not talking, mouthing words, NAD Head exam: PRESENT: atraumatic Mouth exam: PRESENT: moist Neck exam: ABSENT: JVD Respiratory exam: PRESENT: clear to auscultation maurilio, unlabored Cardiovascular exam: PRESENT: RRR, systolic murmur GI/Abdominal exam: PRESENT: soft. ABSENT: tenderness Neurological exam: PRESENT: alert, awake - no focal neuro deficits, baseline deficits noted Psychiatric exam: PRESENT: appropriate affect Results Laboratory Results: 10/02/17 07:45 10/02/17 07:45 10/02/17 10/02/17 07:45 07:45 WBC 6.8 RBC 2.98 L Hgb 8.5 L D Hct 25.7 L MCV 86 MCH 28.5 MCHC 33.0 RDW 14.6 H Plt Count 210 Seg Neutrophils % 75.7 Lymphocytes % 10.1 L Monocytes % 13.1 H Eosinophils % 0.6 Basophils % 0.5 Absolute Neutrophils 5.2 Absolute Lymphocytes 0.7 Absolute Monocytes 0.9 Absolute Eosinophils 0.0 Absolute Basophils 0.0 Sodium 139.6 Potassium 3.9 Chloride 112 H Carbon Dioxide 20 L Anion Gap 8 BUN 20 Creatinine 0.55 Est GFR ( Amer) > 60 Est GFR (Non-Af Amer) > 60 Glucose 198 H Calcium 7.4 L Phosphorus 2.1 L Magnesium 1.9 Impressions: Chest X-Ray 10/01/17 10:38 IMPRESSION: Alveolar and interstitial infiltrates from edema. Pneumonia could not entirely be excluded. Assessment & Plan - Diagnosis (1) Atrial fibrillation with RVR Is this a current diagnosis for this admission?: Yes Plan: - Etiology not entirely clear; likely long standing, exacerbated by UTI. Does have history of hypothyroidism, will repeat TSH on 10/03 - In ED on 10/02, IV Diltiazem 5, then transitioned to Amiodorone, bolus followed by continuous plus IV Digoxin 0.5 mg - Discontinued Amio GTT and started Lopressor 12.5mg BID PO on 10/02 PM - Much better HR and BP control; currently in normal sinus - TTE: preserved EF, enlarged left atria - Will keep Mg<.2, K>4 - [id number] score 7: 11.2% annual risk of stroke. Should be on anti-coagulation , however given many risk factors, will defer to PCP to determine if benefits outweigh risk. Will group therapy counselor green party without starting AC this admission (2) Urinary tract infection Is this a current diagnosis for this admission?: Yes Plan: Asymptomatic, however Urine cx>100,000 - Speciation pending - Continue ceftriaxone (3) Heart failure Qualifiers: Heart failure type: unspecified Heart failure chronicity: unspecified Qualified Code(s): I50.9 - Heart failure, unspecified Is this a current diagnosis for this admission?: Yes Plan: Patient with known history of heart failure - Admission labs notable for elevated BNP. On exam, clinically euvolemic. - TTE at admission: preserved EF, LVH - Poor exam as done during RVR, may be worth repeating as outpatient - Continue to monitor I&Os, daily weights, renal function (4) Acute kidney injury Plan: Resolved. Cr 0.55 on 10/02/17 (6) Generalized weakness Plan: Secondary to other issues. Upon addressing, expect improvement in symptoms (7) Hypotension Qualifiers: Hypotension type: hypotension due to drug Qualified Code(s): I95.2 - Hypotension due to drugs - Time Time Spent with patient: 15-24 minutes Anticipated discharge: Home Within: within 24 hours
[2017-10-02] MEDS: CEFTRIAXONE 2 GM/D5W RTU 2 GM/50 ML RTUPB IV SCH (20:30)
[2017-10-02] MEDS: METOPROLOL TARTRATE 25 MG TABLET PO SCH (21:22)
[2017-10-02] MEDS: FAMOTIDINE 20 MG TABLET PO SCH (21:22)
[2017-10-02] MEDS: ATORVASTATIN CALCIUM 40 MG TABLET PO SCH (21:22)
[2017-10-02] MEDS ORDERED: INFLUENZA ADLT QUAD (36MOS+) 2017-18 VAC 0.5 ML SYR IM PRN (22:26)
[2017-10-02] MEDS: MIRTAZAPINE 15 MG TABLET PO SCH (22:47)
[2017-10-02] MEDS: GUAIFENESIN SYRP 200 MG/10 ML UDC PO PRN (22:59)
[2017-10-03] MEDS: GUAIFENESIN SYRP 200 MG/10 ML UDC PO PRN ×2 (05:10→12:59)
[2017-10-03] MEDS: LEVOTHYROXINE SODIUM 0.025 MG TABLET PO SCH (05:10)
[2017-10-03 05:39] LABS: ABSOLUTE EOSINOPHILS # (AUTO) 0.1 10^3/uL (0.0-0.6); ABSOLUTE LYMPHOCYTES (AUTO) 0.9 10^3/uL (0.5-4.7); ABSOLUTE MONOCYTES (AUTO) 0.8 10^3/uL (0.1-1.4); ABSOLUTE NEUT (AUTO) 5.1 10^3/uL (1.7-8.2); BASOPHILS % (AUTO) 0.2 % (0-2); EOSINOPHILS % (AUTO) 1.1 % (0-6); HEMATOCRIT 27.3 % (36.0-47.0); HEMOGLOBIN 9.1 g/dL (12.0-15.5); LYMPHOCYTES % (AUTO) 13.1 % (13-45); MEAN CORPUSCULAR HEMOGLOBIN 28.5 pg (27.0-33.4); MEAN CORPUSCULAR HGB CONC 33.3 g/dL (32.0-36.0); MEAN CORPUSCULAR VOLUME 86 fl (80-97); MONOCYTES % (AUTO) 12.3 % (3-13); PLATELET COUNT 236 10^3/uL (150-450); RED BLOOD COUNT 3.19 10^6/uL (3.72-5.28); RED CELL DISTRIBUTION WIDTH 14.4 % (11.5-14.0); SEGMENTED NEUTROPHILS % (AUTO) 73.3 % (42-78); TOTAL CELLS COUNTED % (AUTO) 100 %; WHITE BLOOD COUNT 6.9 10^3/uL (4.0-10.5)
[2017-10-03 06:05] LABS: ANION GAP 8 (5-19); BLOOD UREA NITROGEN 10 mg/dL (7-20); CALCIUM 7.9 mg/dL (8.4-10.2); CARBON DIOXIDE 21 mmol/L (22-30); CHLORIDE 114 mmol/L (98-107); GLUCOSE 87 mg/dL (75-110); MAGNESIUM 1.9 mg/dL (1.6-2.3); PHOSPHORUS 1.8 mg/dL (2.5-4.5); POTASSIUM 3.4 mmol/L (3.6-5.0); SODIUM 143.1 mmol/L (137-145)
[2017-10-03] MEDS: METOPROLOL TARTRATE 25 MG TABLET PO SCH (08:24)
[2017-10-03] MEDS: ENOXAPARIN SODIUM INJ 40 MG/0.4 ML DISP.SYRIN SUBCUT SCH (08:25)
[2017-10-03] MEDS: LEVETIRACETAM 500 MG TABLET PO SCH ×2 (08:25→17:40)
[2017-10-03] MEDS: CARBOXYMETHYLCELLULOSE SOD 0.5% 0.4 ML DROPERETTE OS SCH (08:25)
[2017-10-03] MEDS: MEGESTROL ACETATE SUSP 400 MG/10 ML UDCUP PO SCH (08:25)
[2017-10-03] MEDS ORDERED: CALCIUM GLUCONATE 6,666 MG in DEXTROSE 5%-WATER 500 ML IV ONE (10:00)
[2017-10-03] MEDS ORDERED: ONDANSETRON 4 MG TAB.RAPDIS PO PRN (14:00)
--- NOTE | 2017-10-03 14:13 | PDOC TRANSFER SUMMARY ---
General - Admit/Disc Date/PCP Admission Date/Primary Care Provider: 10/01/17 12:30 Discharge Date: 10/03/17 - Discharge Diagnosis (1) Atrial fibrillation with RVR Is this a current diagnosis for this admission?: Yes Summary: Afib likely long standing, exacerbated by UTI. TTE with preserved EF and enlarged left atria, which is consistent with subacute/chronic Afib - In ED on 10/02, IV Diltiazem 5, then transitioned to Amiodorone, bolus followed by continuous plus IV Digoxin 0.5 mg - Discontinued Amio GTT and started Lopressor 12.5mg BID PO on 10/02 PM. HR and BP controlled - [id number] score 7: 11.2% annual risk of stroke. Should be on anti-coagulation , however given many risk factors, will defer to PCP to determine if benefits outweigh risk. Long discussion with family regarding AC risks and benefits - Should have appointment with director of pediatric rehabilitation and/or pole inspector to determine if she would be a good candidate for anticoagulation. (2) Urinary tract infection Is this a current diagnosis for this admission?: Yes Summary: Ecoli UTI - Asymptomatic, however UA with +LE/nitrates/bacteria, Urine cx>100,000, blood culture negative - Received ceftriaxone at admission, will discharge on Bactrim BS 1 tab BID for 2 additional days (has normal renal function) (3) Heart failure Is this a current diagnosis for this admission?: Yes (4) Acute kidney injury Is this a current diagnosis for this admission?: Yes Summary: Cr 0.96 at admission, now improved. Cr 0.53 at discharge, GFR>60 (5) DNR (do not resuscitate) Is this a current diagnosis for this admission?: Yes Summary: Per social work, was previously under hospice care. Current code status is DNI/ DNR - Requested for hopsice evaluation prior to discharge. While patient does have multiple co-morbidities, I do not think she would qualify for hospice care at this time - Code status can be continue to evaluated as outpatient, will defer to PCP for additional discussion (6) Generalized weakness Is this a current diagnosis for this admission?: Yes Summary: Improving, likely secondary to Afib with RVR and UTI. Anticipate continued improvement. (7) Hypotension Is this a current diagnosis for this admission?: Yes Summary: Resolved. restarted Lopressor 12.5mg BID. - Hold parameters for BP, SBP<90 or symptomatic - Additional Information Resuscitation Status: Do Not Resuscitate Discharge Diet: Cardiac Discharge Activity: Activity As Tolerated, Supervised Activity Prescriptions: Sulfamethoxazole/Trimethoprim [Bactrim Ds Tablet] 1 each PO BID 2 Days #4 tablet Home Medications: Acetaminophen [Tylenol 325 mg Tablet] 325 mg PO Q6HP PRN 10/01/17 Atorvastatin Calcium [Lipitor 40 mg Tablet] 40 mg PO QHS 10/01/17 Calcium Carbonate/Vitamin D3 [Calcium 500-Vit D3 200 Tablet] 1 tab PO BID Carboxymethylcellulose Sodium [Refresh Tears] 1 drop OS BID 10/01/17 Docusate Sodium [Colace 100 mg Capsule] 100 mg PO BID 10/01/17 Famotidine [Pepcid 20 mg Tablet] 20 mg PO QHS 10/01/17 Guaifenesin [Tussin] 10 ml PO Q4HP PRN 10/01/17 Juniper/Marilee/Znox/Pet,Wh/Babatunde [Endit Ointment] 1 applic TOP BID 10/01/17 Levetiracetam [Keppra 500 mg Tablet] 1,000 mg PO QAM 10/01/17 Levetiracetam [Keppra 500 mg Tablet] 500 mg PO QPM 10/01/17 Levothyroxine Sodium [Synthroid 0.025 mg Tablet] 0.025 mg PO Q6AM 10/01/17 Metoprolol Tartrate [Lopressor 25 mg Tablet] 12.5 mg PO Q12 10/01/17 Mirtazapine [Remeron 15 mg Tablet] 7.5 mg PO QHS 10/01/17 Sennosides [Senna] 8.6 mg PO BID 10/01/17 Sulfamethoxazole/Trimethoprim [Bactrim Ds Tablet] 1 each PO BID 2 Days #4 tablet 10/03/17 History of Present Illness Admission Date/PCP: 10/01/17 12:30 Patient complains of: Weakness History of Present Illness: EDWARD DICK is a 82 year old female who presents from home with 2-3 days of weakness and lethargy. Most of history is obtained by patient's son and daughter who are at bedside. She has become increasingly weak at home. Inability to walk or talk. She has a new cough, with clear sputum production. She did not have shortness of breath, chest pain, nausea, or vomiting. No worsening lower extremity edema. PO Intake has been worse. Of note patient has CVA with persistent left sided weakness. Code status is DNI/DNR, per discussion with patient's who was also at bedside. He is OK with procedures that will "help keep her alive". This history was reviewed and confirmed. Hospital Course Hospital Course: Per above Physical Exam Vital Signs: Temp Pulse Resp BP Pulse Ox 98.0 F 90 16 100/50 L 99 10/03/17 12:00 10/03/17 12:00 10/03/17 12:00 10/03/17 12:00 10/03/17 12:00 Intake & Output 10/02/17 10/03/17 10/04/17 06:59 06:59 06:59 Intake Total 865 Balance 865 Weight 54.7 kg 54.7 kg Results Laboratory Results: 10/03/17 05:00 10/03/17 05:00 10/03/17 10/03/17 10/03/17 05:00 05:00 05:00 WBC 6.9 RBC 3.19 L Hgb 9.1 L Hct 27.3 L MCV 86 MCH 28.5 MCHC 33.3 RDW 14.4 H Plt Count 236 Seg Neutrophils % 73.3 Lymphocytes % 13.1 Monocytes % 12.3 Eosinophils % 1.1 Basophils % 0.2 Absolute Neutrophils 5.1 Absolute Lymphocytes 0.9 Absolute Monocytes 0.8 Absolute Eosinophils 0.1 Absolute Basophils 0.0 Sodium 143.1 Potassium 3.4 L Chloride 114 H Carbon Dioxide 21 L Anion Gap 8 BUN 10 Creatinine 0.53 Est GFR ( Amer) > 60 Est GFR (Non-Af Amer) > 60 Glucose 87 Calcium 7.9 L Phosphorus 1.8 L Magnesium 1.9 TSH 0.76 Impressions: Chest X-Ray 10/01/17 10:38 IMPRESSION: Alveolar and interstitial infiltrates from edema. Pneumonia could not entirely be excluded. Transfer Plan - Disposition Transfer Plan: Discharge orders to return to [facility] - Time Spent with Patient Time spent with patient: Greater than 30 Minutes Qualifiers VTE patient discharged on overlapping Therapy?: Yes Plan Time Spent: Greater than 30 Minutes
[2017-10-03 15:57] VITALS: BP 99/48
--- NOTE | 2017-10-04 17:28 | Physician Advisory Note ---
Physician Advisor ProgressNote .: Pursuant to the plan for Abelardo Shah, I have reviewed the medical record for this patient. Physician Advisor Statement: Please consider documenting, if you agree: 1. Type of CHF mentioned in DCS (not in H&P) - (A) Chronic or Acute, & (B) Systolic or Diastolic - or was CHF ruled out? - ECHO showed "EF preserved, mod conc LVF, LV diast fn couldn't be assessed due to Afib". BNP was elevated, but other things can produce that besides CHF in some cases. 2. Please document the supporting data for SIMBA dx in this case, or state whether that dx was ruled out. - If Cr is not abnormal at least once, auditors will try to say this dx was not supported by the clinical findings, and deny it. 3. 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 CLarifying your appropriate clinical reasoning may avoid denials in some cases, and make denials defensible in others. Thanks! CK
--- NOTE | 2017-10-04 19:23 | PDOC PROGRESS REPORT ---
Subjective Progress Note for:: 10/02/17 Subjective:: Patient seems to be doing better with gradual improvement. Pt is denying any chest arm or neck discomfort. Patient denying any PND, orthopnea. Patient denied any sustained palpitations, dizziness, syncope, near syncope. Patient denying any fever chills. Patient denying any other significant discomfort. Patient is maintaining atrial fibrillation with controlled ventricular response Review of systems: Rest review of systems negative. Medications: Medications have been reviewed. Reason For Visit: AFIB WITH RVR,WEAKNESS Physical Exam Vital Signs: Temp Pulse Resp BP Pulse Ox 98.3 F 23 H 99/60 L 93 10/02/17 06:53 10/02/17 20:01 10/02/17 20:01 10/02/17 20:01 Intake & Output 10/01/17 10/02/17 10/03/17 06:59 06:59 06:59 Weight 53 kg Exam: GENERAL: well-nourished and in no acute distress. Orientation could not be checked because of speech difficulty. HEAD: Atraumatic, normocephalic. EYES: Pupils equal round and reactive to light, extraocular movements intact, sclera anicteric, conjunctiva are normal. ENT: TMs normal, nares patent, oropharynx clear without exudates. Moist mucous membranes. No oral ulcerations or bleeding gums noted NECK: supple without lymphadenopathy. Trachea is central. No cervical or axillary lymphadenopathy noted. Carotids are 2+, JVD WNL LUNGS: Respiration seems nonlabored, no significant accessory muscle action noted. Breath sounds clear to auscultation bilaterally and equal noted. No wheezes rales or rhonchi noted. No significant dullness noted on percussion. CHEST: Palpation of the chest wall shows no significant chest wall tenderness. No other significant abnormalities noted. HEART: [place] CATHODE MAKER, No PSH, 1/6 JAYME aortic area, 1/6 morgan systolic murmur mitral area, no rubs, no gallops. ABDOMEN: Soft, no significant tenderness appreciated, normoactive bowel sounds. No guarding, no rebound. No rigidity noted . No masses appreciated. EXTREMITIES: Pedal pulses are 1-2+, no calf tenderness noted. No clubbing or cyanosis.trace to 1+ pedal edema noted NEUROLOGICAL: Focused neurological exam showed no new neurological deficit. Chronic right-sided focal weakness appreciated. Speech deficit same. PSYCH: Normal mood, normal affect. Judgment and insight within normal limits. SKIN: No significant ecchymosis, rash, ulcerations or signs of pruritus noted. MUSCULOSKELETAL EXAM: No significant joint swelling noted. Results Laboratory Results: 10/02/17 07:45 10/02/17 07:45 10/02/17 10/02/17 07:45 07:45 WBC 6.8 RBC 2.98 L Hgb 8.5 L D Hct 25.7 L MCV 86 MCH 28.5 MCHC 33.0 RDW 14.6 H Plt Count 210 Seg Neutrophils % 75.7 Lymphocytes % 10.1 L Monocytes % 13.1 H Eosinophils % 0.6 Basophils % 0.5 Absolute Neutrophils 5.2 Absolute Lymphocytes 0.7 Absolute Monocytes 0.9 Absolute Eosinophils 0.0 Absolute Basophils 0.0 Sodium 139.6 Potassium 3.9 Chloride 112 H Carbon Dioxide 20 L Anion Gap 8 BUN 20 Creatinine 0.55 Est GFR ( Amer) > 60 Est GFR (Non-Af Amer) > 60 Glucose 198 H Calcium 7.4 L Phosphorus 2.1 L Magnesium 1.9 Impressions: Chest X-Ray 10/01/17 10:38 IMPRESSION: Alveolar and interstitial infiltrates from edema. Pneumonia could not entirely be excluded. Assessment & Plan - Diagnosis (1) Atrial fibrillation with RVR Is this a current diagnosis for this admission?: Yes (2) Abnormal thyroid function test Is this a current diagnosis for this admission?: Yes (3) CAD (coronary artery disease) Qualifiers: Coronary Disease-Associated Artery/Lesion type: unspecified vessel or lesion type [place] vs. transplanted heart: [place] heart Associated angina: without angina Qualified Code(s): I25.10 - Atherosclerotic heart disease of [place] coronary artery without angina pectoris Is this a current diagnosis for this admission?: Yes (4) Cerebrovascular accident (CVA) Qualifiers: CVA mechanism: thrombosis Precerebral and cerebral artery: unspecified cerebral artery Qualified Code(s): I63.30 - Cerebral infarction due to thrombosis of unspecified cerebral artery Is this a current diagnosis for this admission?: Yes (5) HTN (hypertension) Qualifiers: Hypertension type: essential hypertension Qualified Code(s): I10 - Essential (primary) hypertension Is this a current diagnosis for this admission?: Yes - Notes Notes: Patient has remained reasonably stable. Atrial fibrillation is under control with adequate heart rate control. Vital signs are noted to be stable. Chronic anticoagulation was discussed with the family members. They tell me that patient has history of bleeding problems and some bleeding disorder. Have discussed that it may be worthwhile to discuss this with the patient's material man oncologist and also recreation technician for chronic anticoagulation to be addressed. As regards hypertension, this is well controlled. As regards coronary artery disease. Patient currently asymptomatic. Will continue to follow. - Time Time with patient: 15-25 minutes - CODE STATUS : was discussed, patient remains DO NOT RESUSCITATE. Surrogate decision-maker unchanged. Multiple medical problems were addressed. More than 50% of the time spent coordinating care, discussing management plans with involved caregivers. Management plans discussed with involved personnels. Medical decision making was of moderate to high complexity, patient's has multiple comorbidities. Medications reviewed and adjusted accordingly: Yes
--- NOTE | 2017-10-04 19:28 | PDOC PROGRESS REPORT ---
Subjective Progress Note for:: 10/03/17 Subjective:: Patient seems to be doing better with gradual improvement. Pt is denying any chest arm or neck discomfort. Patient denying any PND, orthopnea. Patient denied any sustained palpitations, dizziness, syncope, near syncope. Patient denying any fever chills. Patient denying any other significant discomfort. Patient is maintaining atrial fibrillation with controlled ventricular response Review of systems: Rest review of systems negative. Medications: Medications have been reviewed. Reason For Visit: AFIB WITH RVR,WEAKNESS Physical Exam Vital Signs: Temp Pulse Resp BP Pulse Ox 98.3 F 70 15 99/48 L 95 10/03/17 15:56 10/03/17 15:56 10/03/17 15:56 10/03/17 15:56 10/03/17 15:56 Intake & Output 10/02/17 10/03/17 10/04/17 06:59 06:59 06:59 Intake Total 865 1232 Balance 865 1232 Weight 54.7 kg 54.7 kg Exam: GENERAL: well-nourished and in no acute distress. Alert and oriented x2 HEAD: Atraumatic, normocephalic. EYES: Pupils equal round and reactive to light, extraocular movements intact, sclera anicteric, conjunctiva are normal. ENT: TMs normal, nares patent, oropharynx clear without exudates. Moist mucous membranes. No oral ulcerations or bleeding gums noted NECK: supple without lymphadenopathy. Trachea is central. No cervical or axillary lymphadenopathy noted. Carotids are 2+, JVD WNL LUNGS: Respiration seems nonlabored, no significant accessory muscle action noted. Breath sounds clear to auscultation bilaterally and equal noted. No wheezes rales or rhonchi noted. No significant dullness noted on percussion. CHEST: Palpation of the chest wall shows no significant chest wall tenderness. No other significant abnormalities noted. 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 ABDOMEN: Soft, no significant tenderness appreciated, normoactive bowel sounds. No guarding, no rebound. No rigidity noted . No masses appreciated. EXTREMITIES: Pedal pulses are 1-2+, no calf tenderness noted. No clubbing or cyanosis.trace to 1+ pedal edema noted NEUROLOGICAL: Focused neurological exam showed no significant changes from baseline neurologic deficit. PSYCH: Judgment and insight not reviewed. Mood seems normal. SKIN: No significant ecchymosis, rash, ulcerations or signs of pruritus noted. MUSCULOSKELETAL EXAM: No significant joint swelling noted. Results Laboratory Results: 10/03/17 05:00 10/03/17 05:00 10/03/17 10/03/17 10/03/17 05:00 05:00 05:00 WBC 6.9 RBC 3.19 L Hgb 9.1 L Hct 27.3 L MCV 86 MCH 28.5 MCHC 33.3 RDW 14.4 H Plt Count 236 Seg Neutrophils % 73.3 Lymphocytes % 13.1 Monocytes % 12.3 Eosinophils % 1.1 Basophils % 0.2 Absolute Neutrophils 5.1 Absolute Lymphocytes 0.9 Absolute Monocytes 0.8 Absolute Eosinophils 0.1 Absolute Basophils 0.0 Sodium 143.1 Potassium 3.4 L Chloride 114 H Carbon Dioxide 21 L Anion Gap 8 BUN 10 Creatinine 0.53 Est GFR ( Amer) > 60 Est GFR (Non-Af Amer) > 60 Glucose 87 Calcium 7.9 L Phosphorus 1.8 L Magnesium 1.9 TSH 0.76 Impressions: Chest X-Ray 10/01/17 10:38 IMPRESSION: Alveolar and interstitial infiltrates from edema. Pneumonia could not entirely be excluded. Assessment & Plan - Diagnosis (1) Atrial fibrillation with RVR Is this a current diagnosis for this admission?: Yes (2) Abnormal thyroid function test Is this a current diagnosis for this admission?: Yes (3) CAD (coronary artery disease) Qualifiers: Coronary Disease-Associated Artery/Lesion type: unspecified vessel or lesion type [place] vs. transplanted heart: [place] heart Associated angina: without angina Qualified Code(s): I25.10 - Atherosclerotic heart disease of [place] coronary artery without angina pectoris Is this a current diagnosis for this admission?: Yes (4) Cerebrovascular accident (CVA) Qualifiers: CVA mechanism: thrombosis Precerebral and cerebral artery: unspecified cerebral artery Qualified Code(s): I63.30 - Cerebral infarction due to thrombosis of unspecified cerebral artery Is this a current diagnosis for this admission?: Yes (5) HTN (hypertension) Qualifiers: Hypertension type: essential hypertension Qualified Code(s): I10 - Essential (primary) hypertension Is this a current diagnosis for this admission?: Yes - Notes Notes: Patient has remained stable from cardiac standpoint. A handwritten order for patient to be evaluated by solid die cutter was entered in the chart. Feel that chronic anticoagulation could be addressed as an outpatient. Patient remains DNR and DNI. Could go up on the Cardizem dose for better heart rate control. Coronary artery disease: Symptomatically stable. Patient felt not a candidate for aggressive evaluation. Hypertension: Relatively well controlled. Atrial fibrillation: Currently on rate control strategy. Chronic anticoagulation not started during this hospitalization. Patient has seen previous dowel sticker operator and solid die cutter and therefore exact reason for not being on chronic anticoagulation is not clear. I am told patient has some bleeding diathesis. At this point will sign off. Please reconsult if needed. - Time Time with patient: 15-25 minutes - CODE STATUS : was discussed, patient remains DO NOT RESUSCITATE. Surrogate decision-maker patient's . Multiple medical problems were addressed. More than 50% of the time spent coordinating care, discussing management plans with involved caregivers. Management plans discussed with involved personnels. Medical decision making was of moderate to high complexity, patient's has multiple comorbidities. Medications reviewed and adjusted accordingly: Yes
== END 2017-10-03 19:59 | DRG 309 ==
LOC: ER 10:23 → EH 12:30 → 5 10-02 21:39
PROVIDERS: ADMIT Emergency Medicine; ATTEND Emergency Medicine
DX: I48.91 Unspecified atrial fibrillation (principal); N39.0 Urinary tract infection, site not specified; I50.32 Chronic diastolic (congestive) heart failure; N17.9 Acute kidney failure, unspecified; I69.354 Hemiplegia and hemiparesis following cerebral infarction affecting left non-dominant side; Z66 Do not resuscitate; I11.0 Hypertensive heart disease with heart failure; E78.00 Pure hypercholesterolemia, unspecified; B96.20 Unspecified Escherichia coli [E. coli] as the cause of diseases classified elsewhere; I95.9 Hypotension, unspecified; R53.1 Weakness; I25.2 Old myocardial infarction
CPT/HCPCS: 36415; 51701; 71045; 80048; 80053; 81001; 82550; 82553; 83735; 83880; 84100; 84439; 84443; 84484; 85025; 87040; 87086; 87088; 87186; 90686; 93005; 93010; 93306; 96365; 96376; 99291; J0282; J0610; J0696; J1160; J1650; J3490; J7030; J7040; J7060

== ENCOUNTER 2017-10-22 08:41 | Inpatient (IN) | payer MEDICARE, OTHER ==
[2017-10-22] MEDS ORDERED: DESMOPRESSIN ACETATE INJ 4 MCG/1 ML AMPULE IV ONE (08:55)
--- NOTE | 2017-10-22 09:03 | ER Document Report ---
ED General - General Stated Complaint: BLEEDING FROM MOUTH Time Seen by Provider: 10/22/17 08:51 Notes: 82-year-old female with dementia, resident at [facility], with a history of von Willebrand's disorder presents with bleeding gums. Spontaneous, probably begin this morning when it was first discovered by staff there. It is mild. She has no problems swallowing. She can give a limited history but attest to some pain in her mouth but no trauma. I do not see on her med list any anticoagulation. TRAVEL OUTSIDE OF THE [place] IN LAST 30 DAYS: No - Related Data Allergies/Adverse Reactions: No Known Allergies Allergy (Verified 09/04/17 00:44) Past Medical History - General Cannot obtain history due to: Dementia - Social History Smoking Status: Never Smoker Family History: CAD - Mother of an [place] at age 59 - Past Medical History Cardiac Medical History: Reports: Hx Atrial Fibrillation, Hx Heart Attack, Hx Hypercholesterolemia, Hx Hypertension, Hx Pulmonary Embolism Pulmonary Medical History: Reports: Hx Sleep Apnea Neurological Medical History: Reports: Hx Cerebrovascular Accident - Spelled reports she had a stroke during her most recent hospitalization., Hx Seizures Renal/ Medical History: Denies: Hx Peritoneal Dialysis Malignancy Medical History: Reports: Hx Breast Cancer, Hx Skin Cancer Psychiatric Medical History: Denies: Hx Depression Past Surgical History: Reports: Hx Cholecystectomy, Hx Hysterectomy, Hx Mastectomy - right breast 2000, Hx Tubal Ligation - Immunizations Hx Diphtheria, Pertussis, Tetanus Vaccination: Yes Hx Pneumococcal Vaccination: 09/23/14 Review of Systems - Review of Systems Notes: REVIEW OF SYSTEMS PHYSICAL EXAMINATION General: No acute distress, well-nourished Head: Atraumatic, normocephalic ENT: Dry mouth with gingival hemorrhage, clotted and slow oozing from the lower gingiva. Maintaining airway normally. Eyes: Conjunctiva normal, pupils equal, lids normal Neck: No JVD, supple, no guarding CVS: Normal rate, regular rhythm, no murmurs Resp: No resp distress, equal and normal breath sounds bilaterally GI: Nondistended, soft, no tenderness to palpation, no rebound or guarding Ext: No deformities, no edema, normal range of motion in upper and lower ext Back: No CVA or midline TTP Skin: No rash, warm Lymphatic: No lymphadeopathy noted Neuro: Awake, alert. Face symmetric. GCS 15. -: Yes ROS unobtainable due to patient's medical condition Physical Exam - Vital signs Vitals: Pulse Resp BP Pulse Ox 84 18 117/54 L 95 10/22/17 08:41 10/22/17 08:41 10/22/17 08:41 10/22/17 08:41 Course - Re-evaluation Re-evalutation: 10/22/17 09:03 82-year-old with long milligrams presents with atraumatic gingival hemorrhage, controlled. Her vitals appear stable. I will check her CBC and coags, give empiric DDAVP. She is currently protect her airway. 10/22/17 09:51 Reexamine the patient. Still oozing from balance but no airway compromise. Spoke with family. Patient is seen by Dr. Davies. I spoke with him and we weighed the options including Amicar and DDAVP, especially given the patient has had a stroke before. He stated that the benefit outweighs the risk and recommended DDAVP, with repeat sodium measurements and observation for thrombotic complications. Patient was discussed with hospitalist for admission. - Vital Signs Vital signs: Temp Pulse Resp BP Pulse Ox 84 18 117/54 L 95 10/22/17 08:41 10/22/17 08:41 10/22/17 08:41 10/22/17 08:41 - Laboratory Result Diagrams: 10/22/17 10:44 10/22/17 10:44 Laboratory results interpreted by me: 10/22/17 09:54 PT 15.8 H APTT 51.3 H Discharge - Discharge Clinical Impression: Gingival hemorrhage Condition: Good Disposition: ADMITTED OBSERVATION Admitting Provider: Hospitalist Unit Admitted: Telemetry
[2017-10-22 10:08] LABS: INTERNATIONAL RATION (INR) 1.18; PROTHROMBIN TIME 15.8 SEC (11.4-15.4)
[2017-10-22 10:10] LABS: PARTIAL THROMBOPLASTIN TIME 51.3 SEC (23.5-35.8)
[2017-10-22] MEDS ORDERED: DESMOPRESSIN ACETATE 20 MCG in NORMAL SALINE 50 ML IV ONE (10:30)
[2017-10-22 10:57] LABS: ABSOLUTE EOSINOPHILS # (AUTO) 0.1 10^3/uL (0.0-0.6); ABSOLUTE LYMPHOCYTES (AUTO) 0.7 10^3/uL (0.5-4.7); ABSOLUTE MONOCYTES (AUTO) 0.7 10^3/uL (0.1-1.4); ABSOLUTE NEUT (AUTO) 3.6 10^3/uL (1.7-8.2); BASOPHILS % (AUTO) 0.7 % (0-2); EOSINOPHILS % (AUTO) 2.5 % (0-6); HEMATOCRIT 29.3 % (36.0-47.0); HEMOGLOBIN 9.8 g/dL (12.0-15.5); LYMPHOCYTES % (AUTO) 13.6 % (13-45); MEAN CORPUSCULAR HEMOGLOBIN 27.1 pg (27.0-33.4); MEAN CORPUSCULAR HGB CONC 33.5 g/dL (32.0-36.0); MONOCYTES % (AUTO) 13.9 % (3-13); PLATELET COUNT 293 10^3/uL (150-450); RED BLOOD COUNT 3.61 10^6/uL (3.72-5.28); RED CELL DISTRIBUTION WIDTH 15.1 % (11.5-14.0); SEGMENTED NEUTROPHILS % (AUTO) 69.3 % (42-78); TOTAL CELLS COUNTED % (AUTO) 100 %; WHITE BLOOD COUNT 5.2 10^3/uL (4.0-10.5)
[2017-10-22 11:10] LABS: MEAN CORPUSCULAR VOLUME 81 fl (80-97)
[2017-10-22 11:14] LABS: ANION GAP 7 (5-19); BLOOD UREA NITROGEN 20 mg/dL (7-20); CALCIUM 9.5 mg/dL (8.4-10.2); CARBON DIOXIDE 25 mmol/L (22-30); CHLORIDE 109 mmol/L (98-107); GLUCOSE 88 mg/dL (75-110); POTASSIUM 4.3 mmol/L (3.6-5.0); SODIUM 141.2 mmol/L (137-145)
[2017-10-22] MEDS ORDERED: ACETAMINOPHEN 325 MG TABLET PO PRN (12:26)
[2017-10-22] MEDS ORDERED: GUAIFENESIN SYRP 200 MG/10 ML UDC PO PRN (12:26)
--- NOTE | 2017-10-22 14:46 | PDOC H&P ---
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 In addition the patient has known von Willebrand's disease and follows with Dr. Soler. She resides in a local nursing facility. She was brought to the emergency room with bleeding from her gums. The emergency room physician contacted her cream maker who recommended DDAVP and close monitoring overnight. When I went to see the patient today communication is difficult. She shakes her head yes that the bleeding is improving. Review of systems could not be obtained from the patient. There are no family members at the bedside. Past Medical History Cardiac Medical History: Reports: Atrial Fibrillation, Myocardial Infarction, Hyperlipidema, Hypertension, Pulmonary Embolism Pulmonary Medical History: Reports: Sleep Apnea Neurological Medical History: Reports: Ischemic CVA, Seizures Malignancy Medical History: Reports: Breast Cancer, Skin Cancer Psychiatric Medical History: Denies: Depression Hematology: Reports: Anemia - Von Wildebrands, Bleeding Tendencies - Acquired Von Willebrand's disease Past Surgical History Past Surgical History: Reports: Cholecystectomy, Hysterectomy, Mastectomy - right breast 2000, Tubal Ligation Social History Information Source: Transfer Record, Emergency Med Personnel, Outside Facility Records Lives with: Retirement Smoking Status: Never Smoker Frequency of Alcohol Use: None Hx Recreational Drug Use: No Drugs: None Hx Prescription Drug Abuse: No Family History Family History: Reviewed & Not Pertinent, CAD - Mother of an [place] at age 59 Parental Family History Reviewed: No Children Family History Reviewed: No Sibling(s) Family History Reviewed.: No Medication/Allergy Home Medications: Acetaminophen [Tylenol 325 mg Tablet] 325 mg PO Q6HP PRN 10/22/17 Atorvastatin Calcium [Lipitor 40 mg Tablet] 40 mg PO QHS 10/22/17 Calcium Carbonate/Vitamin D3 [Os-Shabbir 500+D Tablet] 1 tab PO BIDBS 10/22/17 Carboxymethylcellulose Sodium [Refresh Tears] 1 drop OS BID 10/22/17 Docusate Sodium [Colace 100 mg Capsule] 100 mg PO BID 10/22/17 Famotidine [Pepcid 20 mg Tablet] 20 mg PO QHS 10/22/17 Lactulose [Cephulac 20 gm/30 ml Syrup UD Cup] 10 gm PO BID 10/22/17 Levetiracetam [Keppra 500 mg Tablet] 1,000 mg PO DAILY 10/22/17 Levetiracetam [Keppra 500 mg Tablet] 500 mg PO QHS 10/22/17 Levothyroxine Sodium [Synthroid 0.025 mg Tablet] 25 mcg PO Q6AM 10/22/17 Loperamide HCl [Imodium 2 mg Capsule] 2 mg PO QIDP PRN MDD 8 MG OR 4 CAPSULES Metoprolol Tartrate [Lopressor 25 mg Tablet] 12.5 mg PO Q12 10/22/17 Mirtazapine [Remeron 15 mg Tablet] 7.5 mg PO QHS 10/22/17 Promethazine HCl [Phenergan 25 mg Supp.rect] 25 mg VT Q12HP PRN 10/22/17 Sennosides [Senna] 8.6 mg PO BID 10/22/17 Allergies/Adverse Reactions: No Known Allergies Allergy (Verified 09/04/17 00:44) Review of Systems ROS unobtainable: Other - The patient is unable to speak. She has aphasia from her previous CVA Physical Exam Vital Signs: Temp Pulse Resp BP Pulse Ox 84 18 117/54 L 95 10/22/17 08:41 10/22/17 08:41 10/22/17 08:41 10/22/17 08:41 General appearance: PRESENT: no acute distress, thin Head exam: PRESENT: atraumatic, normocephalic Eye exam: PRESENT: conjunctiva pink, EOMI, PERRLA. ABSENT: scleral icterus Ear exam: PRESENT: normal external ear exam Mouth exam: PRESENT: other - She has some mild oozing from her gums. This reportedly has slowed down quite a bit. Throat exam: PRESENT: other - She has quite a bit of blood in her mouth so it is difficult to examine. Neck exam: ABSENT: carotid bruit, JVD, lymphadenopathy, thyromegaly Respiratory exam: PRESENT: clear to auscultation maurilio. ABSENT: rales, rhonchi, wheezes Cardiovascular exam: PRESENT: RRR. ABSENT: diastolic murmur, rubs, systolic murmur Pulses: PRESENT: normal dorsalis pedis pul Vascular exam: PRESENT: normal capillary refill GI/Abdominal exam: PRESENT: normal bowel sounds, soft. ABSENT: distended, guarding, mass, organolmegaly, rebound, tenderness Extremities exam: PRESENT: full ROM. ABSENT: calf tenderness, clubbing, pedal edema Musculoskeletal exam: ABSENT: ambulatory Neurological exam: PRESENT: alert, awake, aphasic, other - Could not tell if she was oriented or not. She has residual right-sided hemiparesis and is aphasic Psychiatric exam: PRESENT: appropriate affect, normal mood. ABSENT: homicidal ideation, suicidal ideation Skin exam: PRESENT: dry, intact, warm. ABSENT: cyanosis, rash Results Laboratory Results: 10/22/17 10:44 10/22/17 10:44 10/22/17 10/22/17 10:44 10:44 WBC 5.2 RBC 3.61 L Hgb 9.8 L Hct 29.3 L MCV 81 D MCH 27.1 MCHC 33.5 RDW 15.1 H Plt Count 293 Seg Neutrophils % 69.3 Lymphocytes % 13.6 Monocytes % 13.9 H Eosinophils % 2.5 Basophils % 0.7 Absolute Neutrophils 3.6 Absolute Lymphocytes 0.7 Absolute Monocytes 0.7 Absolute Eosinophils 0.1 Absolute Basophils 0.0 Sodium 141.2 Potassium 4.3 Chloride 109 H Carbon Dioxide 25 Anion Gap 7 BUN 20 Creatinine 0.62 Est GFR ( Amer) > 60 Est GFR (Non-Af Amer) > 60 Glucose 88 Calcium 9.5 Assessment & Plan - Diagnosis (1) Gingival bleeding Is this a current diagnosis for this admission?: Yes Plan: She has received 1 dose of DDAVP. We will repeat a chemistry panel to follow her sodium at 4 PM this afternoon. She also will have a repeat CBC as well to make sure that she is maintaining her hemoglobin. We will also obtain labs in the morning. (2) Von Willebrand disease Is this a current diagnosis for this admission?: Yes Plan: She follows with [facility] (3) Seizure disorder as sequela of cerebrovascular accident Is this a current diagnosis for this admission?: Yes Plan: Continue Keppra. She is on a statin medication. She is not on aspirin likely due to her risk of bleeding. She also has residual aphasia and right-sided hemiparesis. (4) Dementia Is this a current diagnosis for this admission?: Yes Plan: There are no family members present. She appears to be at her baseline. She does seem to be aware about what is going on. (5) Dysphagia causing pulmonary aspiration with swallowing Is this a current diagnosis for this admission?: Yes Plan: She has been placed on a pured diet with honey thickened liquids. Speech therapy evaluated her during her previous hospitalization. Since I think she will likely be able to be discharged in the morning I will not get them involved. (6) Atrial fibrillation Is this a current diagnosis for this admission?: Yes Plan: Currently she appears to be in a sinus rhythm and rate controlled. (7) Anemia Is this a current diagnosis for this admission?: Yes Plan: We will obtain an anemia panel in the morning. Her hemoglobin is 9.8. We will repeat a CBC at 4 PM this afternoon to make sure she is maintaining her hemoglobin. - Time Time Spent: 50 to 70 Minutes - Inpatient Certification Based on my medical assessment, after consideration of the patient's comorbidities, presenting symptoms, or acuity I expect that the services needed warrant INPATIENT care.: Yes I certify that my determination is in accordance with my understanding of Medicare's requirements for reasonable and necessary INPATIENT services [42 CFR 412.3e].: Yes Medical Necessity: Other - The patient will be placed in observation in the hospital. Other than her oozing from her gums she appears to be in good health. We will monitor her overnight and monitor her labs and document that her bleeding is stopping. I anticipate that she will spend <1 midnight in the hospital at this point and she will be placed on observation. Certainly if anything changes overnight she could be changed to a full admission.
[2017-10-22 16:49] LABS: ABSOLUTE EOSINOPHILS # (AUTO) 0.2 10^3/uL (0.0-0.6); ABSOLUTE LYMPHOCYTES (AUTO) 0.7 10^3/uL (0.5-4.7); ABSOLUTE MONOCYTES (AUTO) 0.8 10^3/uL (0.1-1.4); ABSOLUTE NEUT (AUTO) 3.7 10^3/uL (1.7-8.2); BASOPHILS % (AUTO) 0.9 % (0-2); EOSINOPHILS % (AUTO) 2.9 % (0-6); HEMOGLOBIN 9.8 g/dL (12.0-15.5); LYMPHOCYTES % (AUTO) 13.8 % (13-45); MEAN CORPUSCULAR HEMOGLOBIN 26.9 pg (27.0-33.4); MEAN CORPUSCULAR HGB CONC 32.7 g/dL (32.0-36.0); MEAN CORPUSCULAR VOLUME 82 fl (80-97); MONOCYTES % (AUTO) 13.9 % (3-13); PLATELET COUNT 317 10^3/uL (150-450); RED BLOOD COUNT 3.65 10^6/uL (3.72-5.28); RED CELL DISTRIBUTION WIDTH 15.4 % (11.5-14.0); SEGMENTED NEUTROPHILS % (AUTO) 68.5 % (42-78); TOTAL CELLS COUNTED % (AUTO) 100 %; WHITE BLOOD COUNT 5.4 10^3/uL (4.0-10.5)
[2017-10-22] MEDS: DOCUSATE SODIUM 100 MG CAPSULE PO SCH (17:06)
[2017-10-22] MEDS: SENNOSIDES/DOCUSATE 8.6-50 MG 1 EACH TABLET PO SCH (17:11)
[2017-10-22] MEDS: LEVETIRACETAM 500 MG TABLET PO SCH (17:11)
[2017-10-22] MEDS: CALCIUM CARBONATE 250 MG/VITAMIN D3 125 UNIT TABLET PO SCH (17:11)
[2017-10-22] MEDS: CARBOXYMETHYLCELLULOSE SOD 0.5% 0.4 ML DROPERETTE OS SCH (17:28)
[2017-10-22] MEDS ORDERED: VITAMIN D3 PO SCH (18:00)
[2017-10-22] MEDS ORDERED: CALCIUM CARBONATE PO SCH (18:00)
[2017-10-22] MEDS ORDERED: (PENDING PHARMACY ID) (Sennosides [Senna] 8.6 MG) PO SCH (18:00)
[2017-10-22] MEDS ORDERED: (PENDING PHARMACY ID) (Carboxymethylcellulose Sodium [Refresh Tears] 1 DROP) OS SCH (18:00)
[2017-10-22] MEDS ORDERED: [UNRECOGNIZED DRUG - OTHER] PO SCH (18:00)
[2017-10-22] MEDS: METOPROLOL TARTRATE 25 MG TABLET PO SCH (21:08)
[2017-10-22] MEDS: MIRTAZAPINE 15 MG TABLET PO SCH (21:08)
[2017-10-22] MEDS: ATORVASTATIN CALCIUM 40 MG TABLET PO SCH (21:08)
[2017-10-22] MEDS: FAMOTIDINE 20 MG TABLET PO SCH (21:08)
[2017-10-23] MEDS: LEVOTHYROXINE SODIUM 0.025 MG TABLET PO SCH (05:12)
[2017-10-23 06:38] LABS: ABSOLUTE RETICS # 0.074 10^6/uL (0.028-0.122); HEMATOCRIT 29.6 % (36.0-47.0); HEMOGLOBIN 9.6 g/dL (12.0-15.5); MEAN CORPUSCULAR HEMOGLOBIN 26.4 pg (27.0-33.4); MEAN CORPUSCULAR HGB CONC 32.4 g/dL (32.0-36.0); MEAN CORPUSCULAR VOLUME 81 fl (80-97); PLATELET COUNT 370 10^3/uL (150-450); RED BLOOD COUNT 3.64 10^6/uL (3.72-5.28); RED CELL DISTRIBUTION WIDTH 15.7 % (11.5-14.0); RETICULOCYTE COUNT (AUTO) 2.02 % (0.66-2.85); WHITE BLOOD COUNT 5.9 10^3/uL (4.0-10.5)
[2017-10-23 06:48] LABS: ANION GAP 12 (5-19); BLOOD UREA NITROGEN 23 mg/dL (7-20); CALCIUM 9.6 mg/dL (8.4-10.2); CARBON DIOXIDE 24 mmol/L (22-30); CHLORIDE 109 mmol/L (98-107); GLUCOSE 79 mg/dL (75-110); IRON(TIBC) 41.5 ug/dL (37-170); POTASSIUM 4.5 mmol/L (3.6-5.0); SODIUM 144.6 mmol/L (137-145)
[2017-10-23] MEDS: LEVETIRACETAM 500 MG TABLET PO SCH ×2 (07:59→17:21)
[2017-10-23] MEDS: METOPROLOL TARTRATE 25 MG TABLET PO SCH ×2 (09:43→21:58)
[2017-10-23] MEDS: CALCIUM CARBONATE 250 MG/VITAMIN D3 125 UNIT TABLET PO SCH ×2 (09:43→17:21)
[2017-10-23] MEDS: SENNOSIDES/DOCUSATE 8.6-50 MG 1 EACH TABLET PO SCH ×2 (09:44→17:22)
[2017-10-23] MEDS: DOCUSATE SODIUM 100 MG CAPSULE PO SCH ×2 (09:44→17:21)
[2017-10-23] MEDS: CARBOXYMETHYLCELLULOSE SOD 0.5% 0.4 ML DROPERETTE OS SCH ×2 (09:50→18:29)
[2017-10-23 17:00] LABS: ANION GAP 8 (5-19); BLOOD UREA NITROGEN 22 mg/dL (7-20); CALCIUM 9.3 mg/dL (8.4-10.2); CARBON DIOXIDE 25 mmol/L (22-30); CHLORIDE 109 mmol/L (98-107); GLUCOSE 97 mg/dL (75-110); POTASSIUM 4.1 mmol/L (3.6-5.0); SODIUM 141.9 mmol/L (137-145)
--- NOTE | 2017-10-23 19:09 | PDOC PROGRESS REPORT ---
Subjective Progress Note for:: 10/23/17 Subjective:: Patient admitted with bleeding from her gums. She has received a dose of DDAVP but she continues to bleed. Her is at bedside and he said he was able to remove some clots. Von Willebrand's disease. Reason For Visit: GUMS BLEEDING Physical Exam Vital Signs: Temp Pulse Resp BP Pulse Ox 98.1 F 61 12 104/61 96 10/23/17 16:00 10/23/17 16:00 10/23/17 16:00 10/23/17 16:00 10/23/17 16:00 Intake & Output 10/22/17 10/23/17 10/24/17 06:59 06:59 06:59 Intake Total 403 487 Output Total 4 Balance 403 483 Weight 52.6 kg General appearance: PRESENT: no acute distress Head exam: PRESENT: atraumatic, normocephalic Eye exam: PRESENT: conjunctiva pink, EOMI, PERRLA. ABSENT: scleral icterus Mouth exam: PRESENT: other - bleeding from gums Teeth exam: PRESENT: dental caries Neck exam: ABSENT: carotid bruit, JVD, lymphadenopathy, thyromegaly Respiratory exam: PRESENT: clear to auscultation maurilio. ABSENT: rales, rhonchi, wheezes Cardiovascular exam: PRESENT: RRR. ABSENT: diastolic murmur, rubs, systolic murmur Pulses: PRESENT: normal dorsalis pedis pul Vascular exam: PRESENT: normal capillary refill GI/Abdominal exam: PRESENT: normal bowel sounds, soft. ABSENT: distended, guarding, mass, organolmegaly, rebound, tenderness Rectal exam: PRESENT: deferred Extremities exam: ABSENT: calf tenderness, clubbing, pedal edema Musculoskeletal exam: PRESENT: other - R extremity weakness Neurological exam: PRESENT: alert, awake, oriented to situation. ABSENT: motor sensory deficit Psychiatric exam: PRESENT: appropriate affect, normal mood. ABSENT: homicidal ideation, suicidal ideation Skin exam: PRESENT: dry, intact, warm. ABSENT: cyanosis, rash Results Laboratory Results: 10/23/17 05:52 10/23/17 16:30 10/23/17 10/23/17 10/23/17 05:52 05:52 16:30 WBC 5.9 RBC 3.64 L Hgb 9.6 L Hct 29.6 L MCV 81 MCH 26.4 L MCHC 32.4 RDW 15.7 H Plt Count 370 Retic Count (auto) 2.02 Absolute Retic 0.074 Sodium 144.6 141.9 Potassium 4.5 4.1 Chloride 109 H 109 H Carbon Dioxide 24 25 Anion Gap 12 8 BUN 23 H 22 H Creatinine 0.65 0.63 Est GFR ( Amer) > 60 > 60 Est GFR (Non-Af Amer) > 60 > 60 Glucose 79 97 Calcium 9.6 9.3 Iron 41.5 TIBC 282 % Saturation 15 Ferritin 476.00 H Vitamin B12 844.0 Folate 18.90 Assessment & Plan - Time Time Spent with patient: 15-24 minutes Medications reviewed and adjusted accordingly: Yes Anticipated discharge: SNF Within: within 48 hours - Plan Summary Plan Summary: Assessment and plan The circumflex coronary tenderness is been managing hospital Gingival bleeding despite having received a dose of DDAVP as she is still bleeding. I have requested for to be recontacted in for further intervention 2. Von Willebrand disease, follow-up with hematology 3. 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 4. Dementia chronic 5. Dysphagia causing pulmonary aspiration with swallowing. She is currently any honey thickened diet. 6 atrial fibrillation currently sinus rhythm 7. Anemia however despite a bleeding hemoglobin is relatively stable continue to monitor
[2017-10-23] MEDS: ATORVASTATIN CALCIUM 40 MG TABLET PO SCH (21:58)
[2017-10-23] MEDS: MIRTAZAPINE 15 MG TABLET PO SCH (22:00)
[2017-10-23] MEDS: FAMOTIDINE 20 MG TABLET PO SCH (22:00)
[2017-10-24 06:33] LABS: ABSOLUTE BASOPHILS # (AUTO) 0.1 10^3/uL (0.0-0.2); ABSOLUTE EOSINOPHILS # (AUTO) 0.2 10^3/uL (0.0-0.6); ABSOLUTE LYMPHOCYTES (AUTO) 0.6 10^3/uL (0.5-4.7); ABSOLUTE MONOCYTES (AUTO) 0.9 10^3/uL (0.1-1.4); ABSOLUTE NEUT (AUTO) 6.1 10^3/uL (1.7-8.2); BASOPHILS % (AUTO) 0.8 % (0-2); EOSINOPHILS % (AUTO) 2.4 % (0-6); HEMATOCRIT 29.2 % (36.0-47.0); HEMOGLOBIN 9.7 g/dL (12.0-15.5); LYMPHOCYTES % (AUTO) 7.9 % (13-45); MEAN CORPUSCULAR HEMOGLOBIN 27.1 pg (27.0-33.4); MEAN CORPUSCULAR HGB CONC 33.3 g/dL (32.0-36.0); MEAN CORPUSCULAR VOLUME 81 fl (80-97); MONOCYTES % (AUTO) 10.9 % (3-13); PLATELET COUNT 284 10^3/uL (150-450); RED CELL DISTRIBUTION WIDTH 15.5 % (11.5-14.0); TOTAL CELLS COUNTED % (AUTO) 100 %; WHITE BLOOD COUNT 7.9 10^3/uL (4.0-10.5)
[2017-10-24] MEDS: LEVOTHYROXINE SODIUM 0.025 MG TABLET PO SCH (06:39)
--- NOTE | 2017-10-24 08:54 | PDOC CONSULTATION ---
Consultation Consult Date: 10/24/17 Attending physician:: JOANNE WARD Consult reason:: Patient with known history of von Willebrand's disease here with profuse gum bleeding History of Present Illness Admission Date/PCP: 10/22/17 10:06 ISMAEL MCKEON Patient complains of: Gum bleeding History of Present Illness: 82-year-old female with known history of recurrent thrombosis, specifically recurrent strokes, with known history of early stage breast cancer, but then subsequent acquired von Willebrand's disorder. She has had this diagnosis now for about 10 years, however has not had much issues with it until recently. Over the last 3 years she has had multiple medical events, but she has had some multiple bleeding issues. Some of the issues have required transfer to [place] for continuous Humate-P infusion to control the bleeding. But many episodes were able to be controlled with DDAVP alone. Currently she is having continuous gum bleeding ongoing for 24 hours prior to admission, she was given 1 dose of DDAVP IV in the ED with hopes that that would control the bleeding, but over the last 24 hours the bleeding is continued, and they have had to suction her continuously. Her hemoglobin however has been stable. At baseline she is unable to communicate but does understand what is being spoken to her and does follow some commands. This is because of the stroke. Past Medical History Cardiac Medical History: Reports: Atrial Fibrillation, Myocardial Infarction, Hyperlipidema, Hypertension, Pulmonary Embolism Pulmonary Medical History: Reports: Sleep Apnea Neurological Medical History: Reports: Ischemic CVA, Seizures Malignancy Medical History: Reports: Breast Cancer, Skin Cancer Psychiatric Medical History: Denies: Depression Hematology: Reports: Anemia - Von Wildebrands, Bleeding Tendencies - Acquired Von Willebrand's disease Past Surgical History Past Surgical History: Reports: Cholecystectomy, Hysterectomy, Mastectomy - right breast 2000, Tubal Ligation Social History Lives with: Family, Care Home Smoking Status: Never Smoker Frequency of Alcohol Use: None Hx Recreational Drug Use: No Drugs: None Hx Prescription Drug Abuse: No Family History Family History: Reviewed & Not Pertinent, CAD - Mother of an [place] at age 59 Parental Family History Reviewed: Yes Children Family History Reviewed: Yes Sibling(s) Family History Reviewed.: Yes Medication/Allergy Home Medications: Acetaminophen [Tylenol 325 mg Tablet] 325 mg PO Q6HP PRN 10/22/17 Atorvastatin Calcium [Lipitor 40 mg Tablet] 40 mg PO QHS 10/22/17 Calcium Carbonate/Vitamin D3 [Os-Shabbir 500+D Tablet] 1 tab PO BIDBS 10/22/17 Carboxymethylcellulose Sodium [Refresh Tears] 1 drop OS BID 10/22/17 Docusate Sodium [Colace 100 mg Capsule] 100 mg PO BID 10/22/17 Famotidine [Pepcid 20 mg Tablet] 20 mg PO QHS 10/22/17 Lactulose [Cephulac 20 gm/30 ml Syrup UD Cup] 10 gm PO BID 10/22/17 Levetiracetam [Keppra 500 mg Tablet] 1,000 mg PO DAILY 10/22/17 Levetiracetam [Keppra 500 mg Tablet] 500 mg PO QHS 10/22/17 Levothyroxine Sodium [Synthroid 0.025 mg Tablet] 25 mcg PO Q6AM 10/22/17 Loperamide HCl [Imodium 2 mg Capsule] 2 mg PO QIDP PRN MDD 8 MG OR 4 CAPSULES Metoprolol Tartrate [Lopressor 25 mg Tablet] 12.5 mg PO Q12 10/22/17 Mirtazapine [Remeron 15 mg Tablet] 7.5 mg PO QHS 10/22/17 Promethazine HCl [Phenergan 25 mg Supp.rect] 25 mg MI Q12HP PRN 10/22/17 Sennosides [Senna] 8.6 mg PO BID 10/22/17 Allergies/Adverse Reactions: No Known Allergies Allergy (Verified 09/04/17 00:44) Review of Systems ROS unobtainable: Other - Unable to communicate due to multiple stroke Physical Exam Vital Signs: Temp Pulse Resp BP Pulse Ox 98.1 F 94 17 109/56 L 95 10/24/17 08:00 10/24/17 08:00 10/24/17 08:00 10/24/17 08:00 10/24/17 08:00 Intake & Output 10/23/17 10/24/17 10/25/17 06:59 06:59 06:59 Intake Total 403 499 Output Total 4 Balance 403 495 Weight 52.6 kg 52.9 kg General appearance: PRESENT: no acute distress, well-developed, well-nourished Head exam: PRESENT: atraumatic, normocephalic Eye exam: PRESENT: conjunctiva pink, EOMI, PERRLA. ABSENT: scleral icterus Ear exam: PRESENT: normal external ear exam Mouth exam: PRESENT: other - oozing noted Teeth exam: PRESENT: poor dentation Neck exam: ABSENT: carotid bruit, JVD, lymphadenopathy, thyromegaly Respiratory exam: PRESENT: clear to auscultation maurilio. ABSENT: rales, rhonchi, wheezes Cardiovascular exam: PRESENT: RRR. ABSENT: diastolic murmur, rubs, systolic murmur Pulses: PRESENT: normal dorsalis pedis pul Vascular exam: PRESENT: normal capillary refill GI/Abdominal exam: PRESENT: normal bowel sounds, soft. ABSENT: distended, guarding, mass, organolmegaly, rebound, tenderness Rectal exam: PRESENT: deferred Extremities exam: PRESENT: full ROM. ABSENT: calf tenderness, clubbing, pedal edema Neurological exam: PRESENT: alert, awake, aphasic Skin exam: PRESENT: dry, intact, warm. ABSENT: cyanosis, rash Results Laboratory Results: 10/24/17 06:15 10/23/17 16:30 10/23/17 10/23/17 10/24/17 05:52 16:30 06:15 WBC 7.9 RBC 3.60 L Hgb 9.7 L Hct 29.2 L MCV 81 MCH 27.1 MCHC 33.3 RDW 15.5 H Plt Count 284 Seg Neutrophils % 78.0 Lymphocytes % 7.9 L Monocytes % 10.9 Eosinophils % 2.4 Basophils % 0.8 Absolute Neutrophils 6.1 Absolute Lymphocytes 0.6 Absolute Monocytes 0.9 Absolute Eosinophils 0.2 Absolute Basophils 0.1 Sodium 141.9 Potassium 4.1 Chloride 109 H Carbon Dioxide 25 Anion Gap 8 BUN 22 H Creatinine 0.63 Est GFR ( Amer) > 60 Est GFR (Non-Af Amer) > 60 Glucose 97 Calcium 9.3 Transferrin 200 Assessment & Plan - Diagnosis (1) Gingival hemorrhage Is this a current diagnosis for this admission?: Yes Plan: Secondary to von Willebrand's disease, severe, unable to be treated with outpatient therapy, we will initiate IV DDAVP today and continue for the next 24 -48 hours with DDAVP nasal spray, we will need to monitor in-house closely for sodium levels, rarely patients can have seizures because of low sodium, if her sodium level gets under 125 we will need to discontinue DDAVP therapy. If her unable to get the bleeding under control in the next 48 hours, she will require transfer to a tertiary care center for consideration of IV humate. Humate is the recombinant von Willebrand factor, and although we can order the drug and give it here we cannot monitor it here. (2) Von Willebrand disease Is this a current diagnosis for this admission?: Yes Plan: Von Willebrand's disease as above, acquired, will persist lifelong. - Time Time Spent: Greater than 70 Minutes - Inpatient Certification Based on my medical assessment, after consideration of the patient's comorbidities, presenting symptoms, or acuity I expect that the services needed warrant INPATIENT care.: Yes I certify that my determination is in accordance with my understanding of Medicare's requirements for reasonable and necessary INPATIENT services [42 CFR 412.3e].: Yes Medical Necessity: Failure to Improve With Outpatient Therapy, Risk of Complication if Not Cared For in Hospital - cont lab monitoring, bleeding monitoring
[2017-10-24] MEDS ORDERED: NORMAL SALINE IV ONE (10:00)
[2017-10-24] MEDS ORDERED: DESMOPRESSIN ACETATE IV ONE (10:00)
[2017-10-24] MEDS: CALCIUM CARBONATE 250 MG/VITAMIN D3 125 UNIT TABLET PO SCH ×2 (10:20→17:50)
[2017-10-24] MEDS: SENNOSIDES/DOCUSATE 8.6-50 MG 1 EACH TABLET PO SCH ×2 (10:20→17:49)
[2017-10-24] MEDS: LEVETIRACETAM 500 MG TABLET PO SCH ×2 (10:21→17:49)
[2017-10-24] MEDS: METOPROLOL TARTRATE 25 MG TABLET PO SCH ×2 (10:21→22:14)
[2017-10-24] MEDS: DOCUSATE SODIUM 100 MG CAPSULE PO SCH ×2 (10:21→17:50)
--- NOTE | 2017-10-24 11:14 | PDOC PROGRESS REPORT ---
Subjective Progress Note for:: 10/24/17 Subjective:: Patient admitted with bleeding from her gums. She has received a dose of DDAVP but she continues to bleed. Her is at bedside and he said he was able to remove some clots. Von Willebrand's disease. There appears to be less bleeding and hemoglobin remains stable Reason For Visit: GUMS BLEEDING Physical Exam Vital Signs: Temp Pulse Resp BP Pulse Ox 98.1 F 94 17 109/56 L 95 10/24/17 08:00 10/24/17 08:00 10/24/17 08:00 10/24/17 08:00 10/24/17 08:00 Intake & Output 10/23/17 10/24/17 10/25/17 06:59 06:59 06:59 Intake Total 403 499 Output Total 4 Balance 403 495 Weight 52.6 kg 52.9 kg Mouth exam: PRESENT: other - bleeding from mouth Teeth exam: PRESENT: poor dentation Neck exam: ABSENT: carotid bruit, JVD, lymphadenopathy, thyromegaly Respiratory exam: PRESENT: clear to auscultation maurilio. ABSENT: rales, rhonchi, wheezes Cardiovascular exam: PRESENT: RRR. ABSENT: diastolic murmur, rubs, systolic murmur GI/Abdominal exam: PRESENT: normal bowel sounds, soft. ABSENT: distended, guarding, mass, organolmegaly, rebound, tenderness Rectal exam: PRESENT: deferred Musculoskeletal exam: PRESENT: other - R sided weakness Neurological exam: PRESENT: alert, awake Results Laboratory Results: 10/24/17 06:15 10/23/17 16:30 10/23/17 10/23/17 10/24/17 05:52 16:30 06:15 WBC 7.9 RBC 3.60 L Hgb 9.7 L Hct 29.2 L MCV 81 MCH 27.1 MCHC 33.3 RDW 15.5 H Plt Count 284 Seg Neutrophils % 78.0 Lymphocytes % 7.9 L Monocytes % 10.9 Eosinophils % 2.4 Basophils % 0.8 Absolute Neutrophils 6.1 Absolute Lymphocytes 0.6 Absolute Monocytes 0.9 Absolute Eosinophils 0.2 Absolute Basophils 0.1 Sodium 141.9 Potassium 4.1 Chloride 109 H Carbon Dioxide 25 Anion Gap 8 BUN 22 H Creatinine 0.63 Est GFR ( Amer) > 60 Est GFR (Non-Af Amer) > 60 Glucose 97 Calcium 9.3 Transferrin 200 Assessment & Plan - Diagnosis (1) Gingival bleeding Is this a current diagnosis for this admission?: Yes Plan: Plan is for repeat DDAVP as per discussions with Dr. Fisher. She will receive both intranasal and intravenous formulas. We will closely monitor her sodium due to the adverse effect of sodium abnormalities (2) Von Willebrand disease Is this a current diagnosis for this admission?: Yes Plan: Underlying etiology of bleeding (4) Dementia Qualifiers: Dementia type: Alzheimer's disease Is this a current diagnosis for this admission?: Yes Plan: Continue current medication - Time Time Spent with patient: 15-24 minutes Medications reviewed and adjusted accordingly: Yes Anticipated discharge: SNF - Inpatient Certification Medical Necessity: Other - Need to control bleeding prior to discharge
--- NOTE | 2017-10-24 13:57 | Physician Advisory Note ---
Physician Advisor ProgressNote .: Pursuant to the plan for [facility], I have reviewed the medical record for this patient. Physician Advisor Statement: Please continue to document dx of "Rt hemiparesis due to past CVA" in each note. Thanks for your help! MD Ruben Physician Advisor
[2017-10-24] MEDS: CARBOXYMETHYLCELLULOSE SOD 0.5% 0.4 ML DROPERETTE OS SCH (17:50)
[2017-10-24 19:01] LABS: ANION GAP 10 (5-19); BLOOD UREA NITROGEN 23 mg/dL (7-20); CALCIUM 9.7 mg/dL (8.4-10.2); CARBON DIOXIDE 25 mmol/L (22-30); CHLORIDE 109 mmol/L (98-107); GLUCOSE 162 mg/dL (75-110); SODIUM 143.6 mmol/L (137-145)
[2017-10-24] MEDS: ATORVASTATIN CALCIUM 40 MG TABLET PO SCH (22:13)
[2017-10-24] MEDS: MIRTAZAPINE 15 MG TABLET PO SCH (22:14)
[2017-10-24] MEDS: FAMOTIDINE 20 MG TABLET PO SCH (22:14)
[2017-10-24] MEDS: DESMOPRESSIN NASAL SPRAY 100 MCG/1 ML 5 ML NASL SCH (22:14)
[2017-10-25 06:29] LABS: HEMATOCRIT 26.2 % (36.0-47.0); HEMOGLOBIN 8.7 g/dL (12.0-15.5); MEAN CORPUSCULAR HGB CONC 33.3 g/dL (32.0-36.0); MEAN CORPUSCULAR VOLUME 81 fl (80-97); PLATELET COUNT 329 10^3/uL (150-450); RED BLOOD COUNT 3.24 10^6/uL (3.72-5.28); RED CELL DISTRIBUTION WIDTH 15.4 % (11.5-14.0)
[2017-10-25] MEDS: LEVOTHYROXINE SODIUM 0.025 MG TABLET PO SCH (06:29)
--- NOTE | 2017-10-25 08:47 | PDOC PROGRESS REPORT ---
Subjective Progress Note for:: 10/25/17 Subjective:: Oozing has improved considerably, pt doing better, appetite better and tolerating more PO today Reason For Visit: GINGIVAL BLEEDING VON WILLEBRAND DISEASE Physical Exam Vital Signs: Temp Pulse Resp BP Pulse Ox 98.1 F 84 19 107/48 L 95 10/25/17 04:44 10/25/17 04:44 10/25/17 04:44 10/25/17 04:44 10/25/17 04:44 Intake & Output 10/24/17 10/25/17 10/26/17 06:59 06:59 06:59 Intake Total 499 530 Balance 499 530 Weight 52.9 kg 52.8 kg General appearance: PRESENT: no acute distress Mouth exam: PRESENT: other - oozing better Teeth exam: PRESENT: poor dentation Respiratory exam: PRESENT: clear to auscultation maurilio. ABSENT: rales, rhonchi, wheezes Cardiovascular exam: PRESENT: RRR. ABSENT: diastolic murmur, rubs, systolic murmur GI/Abdominal exam: PRESENT: normal bowel sounds, soft. ABSENT: distended, guarding, mass, organolmegaly, rebound, tenderness Rectal exam: PRESENT: deferred Neurological exam: PRESENT: alert Results Laboratory Results: 10/25/17 05:33 10/24/17 18:20 10/24/17 10/25/17 18:20 05:33 WBC 8.0 RBC 3.24 L Hgb 8.7 L Hct 26.2 L MCV 81 MCH 27.0 MCHC 33.3 RDW 15.4 H Plt Count 329 Sodium 143.6 Potassium 4.0 Chloride 109 H Carbon Dioxide 25 Anion Gap 10 BUN 23 H Creatinine 0.69 Est GFR ( Amer) > 60 Est GFR (Non-Af Amer) > 60 Glucose 162 H Calcium 9.7 Assessment & Plan - Diagnosis (1) Gingival hemorrhage Is this a current diagnosis for this admission?: Yes Plan: 2nd VWF bleeding, con't DDAVP sprays x 24 more hours. Na levels appropriate. If oozing stopped by tomorrow, will d/c DDAVP and monitor for another 24 hours. (2) Von Willebrand disease Is this a current diagnosis for this admission?: Yes Plan: Plan as above
[2017-10-25] MEDS ORDERED: LEVETIRACETAM ORAL SOLN 500 MG/5 ML UDCUP PO ONE (09:30)
[2017-10-25] MEDS: SENNOSIDES/DOCUSATE 8.6-50 MG 1 EACH TABLET PO SCH ×2 (09:37→18:31)
[2017-10-25] MEDS: CALCIUM CARBONATE 250 MG/VITAMIN D3 125 UNIT TABLET PO SCH ×2 (09:37→18:31)
[2017-10-25] MEDS: DESMOPRESSIN NASAL SPRAY 100 MCG/1 ML 5 ML NASL SCH ×2 (09:38→22:47)
[2017-10-25] MEDS: DOCUSATE SODIUM 100 MG CAPSULE PO SCH ×2 (09:38→18:31)
[2017-10-25] MEDS: CARBOXYMETHYLCELLULOSE SOD 0.5% 0.4 ML DROPERETTE OS SCH ×2 (09:39→18:56)
[2017-10-25] MEDS: METOPROLOL TARTRATE 25 MG TABLET PO SCH ×2 (09:56→22:52)
[2017-10-25 10:25] LABS: ANION GAP 10 (5-19); BLOOD UREA NITROGEN 23 mg/dL (7-20); CALCIUM 9.6 mg/dL (8.4-10.2); CARBON DIOXIDE 25 mmol/L (22-30); CHLORIDE 110 mmol/L (98-107); GLUCOSE 109 mg/dL (75-110); POTASSIUM 4.1 mmol/L (3.6-5.0); SODIUM 145.1 mmol/L (137-145)
[2017-10-25] MEDS ORDERED: MAGNESIUM CITRATE 296 ML BOTTLE PO ONE (13:30)
--- NOTE | 2017-10-25 17:44 | PDOC PROGRESS REPORT ---
Subjective Progress Note for:: 10/25/17 Subjective:: Patient admitted with bleeding from her gums. She has received a dose of DDAVP but she continues to bleed. Her is at bedside and he said he was able to remove some clots. Von Willebrand's disease. Bleeding has subsided after receiving DDAVP intravenously and intravenously on October 24. Hemoglobin remains stable Reason For Visit: GINGIVAL BLEEDING VON WILLEBRAND DISEASE Physical Exam Vital Signs: Temp Pulse Resp BP Pulse Ox 98.5 F 88 14 99/48 L 95 10/25/17 08:33 10/25/17 08:33 10/25/17 08:33 10/25/17 08:33 10/25/17 08:33 Intake & Output 10/24/17 10/25/17 10/26/17 06:59 06:59 06:59 Intake Total 499 530 Balance 499 530 Weight 52.9 kg 52.8 kg General appearance: PRESENT: thin, other - Elderly and frail Head exam: PRESENT: atraumatic Ear exam: PRESENT: normal external ear exam Mouth exam: PRESENT: other - Bleeding from the mouth Teeth exam: PRESENT: poor dentation Respiratory exam: PRESENT: clear to auscultation maurilio. ABSENT: rales, rhonchi, wheezes Cardiovascular exam: PRESENT: RRR. ABSENT: diastolic murmur, rubs, systolic murmur Rectal exam: PRESENT: deferred Musculoskeletal exam: PRESENT: other - Right lower extremity weakness Neurological exam: PRESENT: alert, awake, motor sensory deficit, other - Limited exam due to bleeding Results Laboratory Results: 10/25/17 05:33 10/25/17 10:01 10/24/17 10/25/17 10/25/17 18:20 05:33 10:01 WBC 8.0 RBC 3.24 L Hgb 8.7 L Hct 26.2 L MCV 81 MCH 27.0 MCHC 33.3 RDW 15.4 H Plt Count 329 Sodium 143.6 145.1 H Potassium 4.0 4.1 Chloride 109 H 110 H Carbon Dioxide 25 25 Anion Gap 10 10 BUN 23 H 23 H Creatinine 0.69 0.63 Est GFR ( Amer) > 60 > 60 Est GFR (Non-Af Amer) > 60 > 60 Glucose 162 H 109 Calcium 9.7 9.6 Assessment & Plan - Diagnosis (1) Generalized weakness Plan: Likely sequela of CVA (2) Von Willebrand disease Is this a current diagnosis for this admission?: Yes Plan: Underlying etiology of bleeding (3) Gingival bleeding Is this a current diagnosis for this admission?: Yes Plan: This seems to be responding to DDAVP was discontinued intranasally today. Her hemoglobin did drop but will continue to monitor. (4) Dementia Qualifiers: Dementia type: Alzheimer's disease Is this a current diagnosis for this admission?: Yes (5) Hemiparesis affecting right side as late effect of cerebrovascular accident Is this a current diagnosis for this admission?: Yes Plan: No acute intervention needed (6) Do not resuscitate Is this a current diagnosis for this admission?: Yes (7) Anemia Qualifiers: Anemia type: unspecified type Qualified Code(s): D64.9 - Anemia, unspecified Is this a current diagnosis for this admission?: Yes Plan: Due to chronic disease and exacerbated with gingival bleeding. Will continue to monitor H&H and transfuse if needed (8) Hypernatremia Is this a current diagnosis for this admission?: Yes Plan: We will monitor carefully due to patient being on desmopressin - Time Time Spent with patient: 15-24 minutes Anticipated discharge: SNF Within: within 72 hours
[2017-10-25] MEDS: LEVETIRACETAM ORAL SOLN 500 MG/5 ML UDCUP PO SCH (18:31)
[2017-10-25 19:09] LABS: ANION GAP 9 (5-19); BLOOD UREA NITROGEN 20 mg/dL (7-20); CALCIUM 9.9 mg/dL (8.4-10.2); CARBON DIOXIDE 25 mmol/L (22-30); CHLORIDE 111 mmol/L (98-107); GLUCOSE 96 mg/dL (75-110); POTASSIUM 3.7 mmol/L (3.6-5.0); SODIUM 144.7 mmol/L (137-145)
[2017-10-25] MEDS: FAMOTIDINE 20 MG TABLET PO SCH (22:52)
[2017-10-25] MEDS: ATORVASTATIN CALCIUM 40 MG TABLET PO SCH (22:52)
[2017-10-25] MEDS: MIRTAZAPINE 15 MG TABLET PO SCH (22:52)
[2017-10-26 05:24] LABS: HEMATOCRIT 28.2 % (36.0-47.0); HEMOGLOBIN 9.1 g/dL (12.0-15.5); MEAN CORPUSCULAR HEMOGLOBIN 26.8 pg (27.0-33.4); MEAN CORPUSCULAR HGB CONC 32.3 g/dL (32.0-36.0); MEAN CORPUSCULAR VOLUME 83 fl (80-97); PLATELET COUNT 340 10^3/uL (150-450); RED CELL DISTRIBUTION WIDTH 15.6 % (11.5-14.0); WHITE BLOOD COUNT 5.3 10^3/uL (4.0-10.5)
[2017-10-26] MEDS: LEVETIRACETAM ORAL SOLN 500 MG/5 ML UDCUP PO SCH ×2 (07:22→17:41)
[2017-10-26] MEDS: LEVOTHYROXINE SODIUM 0.025 MG TABLET PO SCH (07:23)
[2017-10-26] MEDS ORDERED: LEVETIRACETAM INJ/PF 500 MG/5 ML SDV IV SCH (08:00)
[2017-10-26 10:05] LABS: ANION GAP 8 (5-19); BLOOD UREA NITROGEN 19 mg/dL (7-20); CALCIUM 9.5 mg/dL (8.4-10.2); CARBON DIOXIDE 28 mmol/L (22-30); CHLORIDE 112 mmol/L (98-107); GLUCOSE 101 mg/dL (75-110); POTASSIUM 4.2 mmol/L (3.6-5.0); SODIUM 148.1 mmol/L (137-145)
[2017-10-26] MEDS: CALCIUM CARBONATE 250 MG/VITAMIN D3 125 UNIT TABLET PO SCH ×2 (10:45→17:41)
[2017-10-26] MEDS: SENNOSIDES/DOCUSATE 8.6-50 MG 1 EACH TABLET PO SCH ×2 (10:45→17:42)
[2017-10-26] MEDS: METOPROLOL TARTRATE 25 MG TABLET PO SCH ×2 (10:45→22:06)
[2017-10-26] MEDS: CARBOXYMETHYLCELLULOSE SOD 0.5% 0.4 ML DROPERETTE OS SCH ×2 (10:46→19:00)
[2017-10-26] MEDS: DOCUSATE SODIUM 100 MG CAPSULE PO SCH ×2 (10:47→17:39)
[2017-10-26] MEDS: DESMOPRESSIN NASAL SPRAY 100 MCG/1 ML 5 ML NASL SCH (12:58)
--- NOTE | 2017-10-26 13:18 | PDOC PROGRESS REPORT ---
Subjective Progress Note for:: 10/26/17 Subjective:: Pt doing generally well this am, pt did not receive DDAVP nasal spray last night or this b/c spray could not be located, nursing team has located it this am. Large clots noted in mouth but I did not see active oozing. She seems to be responding well to DDAVP. If we run out of nasal spray here in house we will switch to IV formulation. But we need 2 more days in house to decide if appropriate for her to be dc'd off nasal spray. Reason For Visit: GINGIVAL BLEEDING VON WILLEBRAND DISEASE Physical Exam Vital Signs: Temp Pulse Resp BP Pulse Ox 97.4 F 84 16 101/50 L 96 10/26/17 10:50 10/26/17 10:50 10/26/17 10:50 10/26/17 10:50 10/26/17 10:50 Intake & Output 10/25/17 10/26/17 10/27/17 06:59 06:59 06:59 Intake Total 530 328 Balance 530 328 Weight 52.8 kg 54.6 kg General appearance: PRESENT: no acute distress, well-developed, well-nourished Head exam: PRESENT: atraumatic, normocephalic Eye exam: PRESENT: conjunctiva pink, EOMI, PERRLA. ABSENT: scleral icterus Ear exam: PRESENT: normal external ear exam Mouth exam: PRESENT: moist, tongue midline Neck exam: ABSENT: carotid bruit, JVD, lymphadenopathy, thyromegaly Respiratory exam: PRESENT: clear to auscultation maurilio. ABSENT: rales, rhonchi, wheezes Cardiovascular exam: PRESENT: RRR. ABSENT: diastolic murmur, rubs, systolic murmur Pulses: PRESENT: normal dorsalis pedis pul Vascular exam: PRESENT: normal capillary refill GI/Abdominal exam: PRESENT: normal bowel sounds, soft. ABSENT: distended, guarding, mass, organolmegaly, rebound, tenderness Rectal exam: PRESENT: deferred Extremities exam: PRESENT: full ROM. ABSENT: calf tenderness, clubbing, pedal edema Neurological exam: PRESENT: alert, awake, oriented to person, oriented to place , oriented to time, oriented to situation, CN II-XII grossly intact. ABSENT: motor sensory deficit Psychiatric exam: PRESENT: appropriate affect, normal mood. ABSENT: homicidal ideation, suicidal ideation Skin exam: PRESENT: dry, intact, warm. ABSENT: cyanosis, rash Results Laboratory Results: 10/26/17 05:02 10/26/17 05:02 10/25/17 10/26/17 10/26/17 18:10 05:02 05:02 WBC 5.3 RBC 3.40 L Hgb 9.1 L Hct 28.2 L MCV 83 MCH 26.8 L MCHC 32.3 RDW 15.6 H Plt Count 340 Sodium 144.7 148.1 H Potassium 3.7 4.2 Chloride 111 H 112 H Carbon Dioxide 25 28 Anion Gap 9 8 BUN 20 19 Creatinine 0.61 0.66 Est GFR ( Amer) > 60 > 60 Est GFR (Non-Af Amer) > 60 > 60 Glucose 96 101 Calcium 9.9 9.5 Assessment & Plan - Diagnosis (1) Gingival hemorrhage Is this a current diagnosis for this admission?: Yes Plan: Improving , cont DDAVP nasal spray (2) Von Willebrand disease Is this a current diagnosis for this admission?: Yes Plan: As above. Today spent >35 min in discussion, w/ family coordination of care w/ nursing, they will update me on progress later today - Time Time Spent with patient: 35 or more minutes - Inpatient Certification Based on my medical assessment, after consideration of the patient's comorbidities, presenting symptoms, or acuity I expect that the services needed warrant INPATIENT care.: Yes I certify that my determination is in accordance with my understanding of Medicare's requirements for reasonable and necessary INPATIENT services [42 CFR 412.3e].: Yes Medical Necessity: Risk of Complication if Not Cared For in Hospital - active bleeding management and watching pt
--- NOTE | 2017-10-26 16:45 | PDOC PROGRESS REPORT ---
Subjective Progress Note for:: 10/26/17 Subjective:: Patient admitted with bleeding from her gums. Bleeding seems to have subsided Von Willebrand's disease. Bleeding has subsided after receiving DDAVP intravenously and intranasally on October 24. Hemoglobin remains relatively stable Reason For Visit: GINGIVAL BLEEDING VON WILLEBRAND DISEASE Physical Exam Vital Signs: Temp Pulse Resp BP Pulse Ox 97.4 F 86 16 101/50 L 96 10/26/17 10:50 10/26/17 13:55 10/26/17 10:50 10/26/17 10:50 10/26/17 10:50 Intake & Output 10/25/17 10/26/17 10/27/17 06:59 06:59 06:59 Intake Total 530 328 Balance 530 328 Weight 52.8 kg 54.6 kg General appearance: PRESENT: no acute distress, thin - Elderly and frail Head exam: PRESENT: atraumatic, normocephalic Eye exam: PRESENT: conjunctiva pink, EOMI, PERRLA. ABSENT: scleral icterus Ear exam: PRESENT: normal external ear exam Mouth exam: PRESENT: dry mucosa Teeth exam: PRESENT: poor dentation, other - Gingival bleeding Neck exam: ABSENT: carotid bruit, JVD, lymphadenopathy, thyromegaly Respiratory exam: PRESENT: clear to auscultation maurilio. ABSENT: rales, rhonchi, wheezes Cardiovascular exam: PRESENT: RRR. ABSENT: diastolic murmur, rubs, systolic murmur Pulses: PRESENT: normal dorsalis pedis pul Vascular exam: PRESENT: normal capillary refill GI/Abdominal exam: PRESENT: normal bowel sounds, soft. ABSENT: distended, guarding, mass, organolmegaly, rebound, tenderness Rectal exam: PRESENT: deferred Extremities exam: PRESENT: full ROM. ABSENT: calf tenderness, clubbing, pedal edema Neurological exam: PRESENT: alert, awake, motor sensory deficit - Right-sided weakness, aphasic Psychiatric exam: PRESENT: appropriate affect, normal mood. ABSENT: homicidal ideation, suicidal ideation Skin exam: PRESENT: dry, intact, warm. ABSENT: cyanosis, rash Results Laboratory Results: 10/26/17 05:02 10/26/17 05:02 10/25/17 10/26/17 10/26/17 18:10 05:02 05:02 WBC 5.3 RBC 3.40 L Hgb 9.1 L Hct 28.2 L MCV 83 MCH 26.8 L MCHC 32.3 RDW 15.6 H Plt Count 340 Sodium 144.7 148.1 H Potassium 3.7 4.2 Chloride 111 H 112 H Carbon Dioxide 25 28 Anion Gap 9 8 BUN 20 19 Creatinine 0.61 0.66 Est GFR ( Amer) > 60 > 60 Est GFR (Non-Af Amer) > 60 > 60 Glucose 96 101 Calcium 9.9 9.5 Assessment & Plan - Diagnosis (1) Generalized weakness Plan: Likely sequela of CVA, continue supportive care (2) Von Willebrand disease Is this a current diagnosis for this admission?: Yes Plan: Underlying etiology of bleeding continue DDAVP (3) Gingival bleeding Is this a current diagnosis for this admission?: Yes Plan: This seems to be responding to DDAVP which was continued intranasally today. Guard Range recommended another 1 or 2 days of DDAVP. Globin is relatively stable although she has a slight downward trend (4) Dementia Qualifiers: Dementia type: Alzheimer's disease Is this a current diagnosis for this admission?: Yes Plan: Continue current medication (5) Hemiparesis affecting right side as late effect of cerebrovascular accident Is this a current diagnosis for this admission?: Yes Plan: No acute intervention needed (6) Do not resuscitate Is this a current diagnosis for this admission?: Yes (7) Anemia Qualifiers: Anemia type: unspecified type Qualified Code(s): D64.9 - Anemia, unspecified Is this a current diagnosis for this admission?: Yes Plan: Due to chronic disease and exacerbated with gingival bleeding. Will continue to monitor H&H and transfuse as needed (8) Hypernatremia Is this a current diagnosis for this admission?: Yes Plan: We will monitor carefully due to patient being on desmopressin. We will start cautious hypotonic IV fluid will follow BMP in a.m. - Time Time Spent with patient: 15-24 minutes Medications reviewed and adjusted accordingly: Yes Anticipated discharge: SNF Within: within 72 hours - Inpatient Certification Medical Necessity: Other - Patient still bleeding needs to be monitored in hospital for stabilization prior to discharge
[2017-10-26 18:18] LABS: ANION GAP 7 (5-19); BLOOD UREA NITROGEN 19 mg/dL (7-20); CALCIUM 9.7 mg/dL (8.4-10.2); CARBON DIOXIDE 29 mmol/L (22-30); CHLORIDE 111 mmol/L (98-107); GLUCOSE 133 mg/dL (75-110); POTASSIUM 3.9 mmol/L (3.6-5.0); SODIUM 146.9 mmol/L (137-145)
[2017-10-26] MEDS ORDERED: NORMAL SALINE IV ONE (20:00)
[2017-10-26] MEDS ORDERED: DESMOPRESSIN ACETATE IV ONE (20:00)
[2017-10-26] MEDS ORDERED: DESMOPRESSIN ACETATE INJ 4 MCG/1 ML AMPULE ONE (21:04)
[2017-10-26] MEDS: FAMOTIDINE 20 MG TABLET PO SCH (22:06)
[2017-10-26] MEDS: ATORVASTATIN CALCIUM 40 MG TABLET PO SCH (22:06)
[2017-10-26] MEDS: MIRTAZAPINE 15 MG TABLET PO SCH (22:06)
[2017-10-27] MEDS: LEVOTHYROXINE SODIUM 0.025 MG TABLET PO SCH (06:12)
[2017-10-27 06:35] LABS: HEMATOCRIT 29.4 % (36.0-47.0); HEMOGLOBIN 9.6 g/dL (12.0-15.5); MEAN CORPUSCULAR HEMOGLOBIN 26.8 pg (27.0-33.4); MEAN CORPUSCULAR HGB CONC 32.8 g/dL (32.0-36.0); MEAN CORPUSCULAR VOLUME 82 fl (80-97); RED CELL DISTRIBUTION WIDTH 15.8 % (11.5-14.0); WHITE BLOOD COUNT 6.4 10^3/uL (4.0-10.5)
[2017-10-27 06:36] LABS: ANION GAP 9 (5-19); BLOOD UREA NITROGEN 18 mg/dL (7-20); CALCIUM 9.9 mg/dL (8.4-10.2); CARBON DIOXIDE 27 mmol/L (22-30); CHLORIDE 112 mmol/L (98-107); GLUCOSE 103 mg/dL (75-110); POTASSIUM 3.8 mmol/L (3.6-5.0); SODIUM 148.4 mmol/L (137-145)
[2017-10-27 06:41] LABS: ABSOLUTE MONOCYTES # (MANUAL) 0.9 10^3/uL (0.1-1.4); ABSOLUTE NEUTROPHILS# (MANUAL) 4.3 10^3/uL (1.7-8.2); BAND NEUTROPHILS % (MANUAL) 1 % (3-5); BASOPHILS % (MANUAL) 1 % (0-2); EOSINOPHILS % (MANUAL) 3 % (0-6); LYMPHOCYTES % (MANUAL) 15 % (13-45); MONOCYTES % (MANUAL) 14 % (3-13); SEGMENTED NEUTROPHILS % (MAN) 66 % (42-78); TOTAL CELLS COUNTED 100
[2017-10-27 06:44] LABS: ACANTHOCYTES SLIGHT; ANISOCYTOSIS SLIGHT; BURR CELLS 1+; HYPOCHROMASIA SLIGHT; OVALOCYTES 1+; PLATELET CLUMPS PRESENT; PLATELET COMMENT ADEQUATE; POIKILOCYTOSIS 2+; TOXIC VACUOLATION PRESENT
[2017-10-27 06:45] LABS: PLATELET COUNT 303 10^3/uL (150-450)
[2017-10-27] MEDS: LEVETIRACETAM ORAL SOLN 500 MG/5 ML UDCUP PO SCH ×2 (08:23→18:05)
[2017-10-27] MEDS: CALCIUM CARBONATE 250 MG/VITAMIN D3 125 UNIT TABLET PO SCH ×2 (09:11→18:05)
[2017-10-27] MEDS: METOPROLOL TARTRATE 25 MG TABLET PO SCH ×2 (09:12→22:15)
[2017-10-27] MEDS: SENNOSIDES/DOCUSATE 8.6-50 MG 1 EACH TABLET PO SCH ×2 (09:12→18:05)
[2017-10-27] MEDS: DOCUSATE SODIUM 100 MG CAPSULE PO SCH ×2 (09:12→18:06)
[2017-10-27] MEDS: CARBOXYMETHYLCELLULOSE SOD 0.5% 0.4 ML DROPERETTE OS SCH ×2 (09:16→18:06)
[2017-10-27 10:38] LABS: ANION GAP 11 (5-19); BLOOD UREA NITROGEN 19 mg/dL (7-20); CALCIUM 9.8 mg/dL (8.4-10.2); CARBON DIOXIDE 25 mmol/L (22-30); CHLORIDE 111 mmol/L (98-107); GLUCOSE 165 mg/dL (75-110); POTASSIUM 3.8 mmol/L (3.6-5.0)
[2017-10-27] MEDS: DEXTROSE 5%-1/2 NORMAL SALINE 1,000 ML IV PRN (11:14)
--- NOTE | 2017-10-27 14:45 | PDOC PROGRESS REPORT ---
Subjective Progress Note for:: 10/27/17 Subjective:: Patient admitted with bleeding from her gums. Bleeding seems to have subsided Von Willebrand's disease. Bleeding has s stopped after receiving DDAVP intravenously with last dose being yesterday October 26 and intranasally on October 24. She has had minimal bleeding since today. There is no oozing and no fresh blood in her mouth. Hemoglobin also remains relatively stable At this point I see no indication to transfer this patient and have asked the nurse to keep a very close eye on for any further evidence of bleeding and to report to me immediately if that happens she is eating soft diet well with no issues and no bleeding Reason For Visit: GINGIVAL BLEEDING VON WILLEBRAND DISEASE Physical Exam Vital Signs: Temp Pulse Resp BP Pulse Ox 97.7 F 84 20 101/58 L 96 10/27/17 07:22 10/27/17 14:00 10/27/17 07:22 10/27/17 07:22 10/27/17 07:22 Intake & Output 10/26/17 10/27/17 10/28/17 06:59 06:59 06:59 Intake Total 328 515 Balance 328 515 Weight 54.6 kg 56.5 kg General appearance: PRESENT: cooperative, thin - Elderly and frail Mouth exam: PRESENT: other - Dried blood between teeth otherwise no evidence of active bleeding Teeth exam: PRESENT: poor dentation Neck exam: ABSENT: carotid bruit, JVD, lymphadenopathy, thyromegaly Respiratory exam: PRESENT: clear to auscultation maurilio. ABSENT: rales, rhonchi, wheezes Pulses: PRESENT: normal dorsalis pedis pul GI/Abdominal exam: PRESENT: normal bowel sounds, soft. ABSENT: distended, guarding, mass, organolmegaly, rebound, tenderness Rectal exam: PRESENT: deferred Extremities exam: PRESENT: full ROM. ABSENT: calf tenderness, clubbing, pedal edema Musculoskeletal exam: PRESENT: other - Right-sided weakness Neurological exam: PRESENT: motor sensory deficit - Right hemiparesis, aphasic Psychiatric exam: PRESENT: other - Unable to evaluate Results Laboratory Results: 10/27/17 05:37 10/27/17 10:07 10/26/17 10/27/17 10/27/17 17:45 05:37 05:37 WBC 6.4 RBC 3.60 L Hgb 9.6 L Hct 29.4 L MCV 82 MCH 26.8 L MCHC 32.8 RDW 15.8 H Plt Count 303 Seg Neutrophils % Not Reportable Lymphocytes % Not Reportable Monocytes % Not Reportable Eosinophils % Not Reportable Basophils % Not Reportable Absolute Neutrophils Not Reportable Absolute Lymphocytes Not Reportable Absolute Monocytes Not Reportable Absolute Eosinophils Not Reportable Absolute Basophils Not Reportable Sodium 146.9 H 148.4 H Potassium 3.9 3.8 Chloride 111 H 112 H Carbon Dioxide 29 27 Anion Gap 7 9 BUN 19 18 Creatinine 0.70 0.65 Est GFR ( Amer) > 60 > 60 Est GFR (Non-Af Amer) > 60 > 60 Glucose 133 H 103 Calcium 9.7 9.9 10/27/17 10:07 WBC RBC Hgb Hct MCV MCH MCHC RDW Plt Count Seg Neutrophils % Lymphocytes % Monocytes % Eosinophils % Basophils % Absolute Neutrophils Absolute Lymphocytes Absolute Monocytes Absolute Eosinophils Absolute Basophils Sodium 147.0 H Potassium 3.8 Chloride 111 H Carbon Dioxide 25 Anion Gap 11 BUN 19 Creatinine 0.66 Est GFR ( Amer) > 60 Est GFR (Non-Af Amer) > 60 Glucose 165 H Calcium 9.8 Assessment & Plan - Diagnosis (1) Gingival bleeding Is this a current diagnosis for this admission?: Yes Plan: This seems to be responding to DDAVP currently with no evidence of bleeding (2) Generalized weakness Plan: Likely sequela of CVA, continue supportive care (3) Von Willebrand disease Is this a current diagnosis for this admission?: Yes Plan: Underlying etiology of bleeding continue DDAVP (4) Dementia Qualifiers: Dementia type: Alzheimer's disease Is this a current diagnosis for this admission?: Yes Plan: Continue current medication (5) Hemiparesis affecting right side as late effect of cerebrovascular accident Is this a current diagnosis for this admission?: Yes Plan: No acute intervention needed (6) Do not resuscitate Is this a current diagnosis for this admission?: Yes (7) Anemia Qualifiers: Anemia type: unspecified type Qualified Code(s): D64.9 - Anemia, unspecified Is this a current diagnosis for this admission?: Yes Plan: Due to chronic disease and exacerbated with gingival bleeding. Hemoglobin remains stable (8) Hypernatremia Is this a current diagnosis for this admission?: Yes Plan: We will give cautious hypotonic IV fluid will follow BMP in a.m. - Time Anticipated discharge: SNF Within: within 48 hours - Inpatient Certification Medical Necessity: Need Close Monitoring Due to Risk of Patient Decompensation - Patient has had persistent gingiva bleeding and is to be monitored
[2017-10-27 18:09] LABS: ANION GAP 10 (5-19); BLOOD UREA NITROGEN 21 mg/dL (7-20); CALCIUM 9.8 mg/dL (8.4-10.2); CARBON DIOXIDE 27 mmol/L (22-30); CHLORIDE 109 mmol/L (98-107); GLUCOSE 180 mg/dL (75-110); POTASSIUM 3.8 mmol/L (3.6-5.0); SODIUM 145.7 mmol/L (137-145)
[2017-10-27] MEDS: FAMOTIDINE 20 MG TABLET PO SCH (22:15)
[2017-10-27] MEDS: MIRTAZAPINE 15 MG TABLET PO SCH (22:15)
[2017-10-27] MEDS: ATORVASTATIN CALCIUM 40 MG TABLET PO SCH (22:15)
[2017-10-28] MEDS: LEVOTHYROXINE SODIUM 0.025 MG TABLET PO SCH (05:44)
[2017-10-28 06:19] LABS: HEMATOCRIT 27.4 % (36.0-47.0); MEAN CORPUSCULAR HEMOGLOBIN 26.7 pg (27.0-33.4); MEAN CORPUSCULAR HGB CONC 32.6 g/dL (32.0-36.0); MEAN CORPUSCULAR VOLUME 82 fl (80-97); PLATELET COUNT 328 10^3/uL (150-450); RED BLOOD COUNT 3.36 10^6/uL (3.72-5.28); RED CELL DISTRIBUTION WIDTH 15.8 % (11.5-14.0); WHITE BLOOD COUNT 6.5 10^3/uL (4.0-10.5)
[2017-10-28 06:35] LABS: ANION GAP 11 (5-19); BLOOD UREA NITROGEN 18 mg/dL (7-20); CALCIUM 9.3 mg/dL (8.4-10.2); CARBON DIOXIDE 26 mmol/L (22-30); CHLORIDE 109 mmol/L (98-107); GLUCOSE 106 mg/dL (75-110); POTASSIUM 3.6 mmol/L (3.6-5.0); SODIUM 145.5 mmol/L (137-145)
--- NOTE | 2017-10-28 08:48 | PDOC PROGRESS REPORT ---
Subjective Progress Note for:: 10/28/17 Subjective:: No bruising over the last 24 hours, patient actually had DDAVP IV ordered as of Saturday, she received it Saturday but somehow got discontinued on Saturday. Pharmacy is trying to figure out why that happened. But regardless over the last 24 hours there has not been any bleeding and she seems to be doing well from that standpoint. Reason For Visit: GINGIVAL BLEEDING VON WILLEBRAND DISEASE Physical Exam Vital Signs: Temp Pulse Resp BP Pulse Ox 97.2 F 81 18 95/58 L 95 10/28/17 04:00 10/28/17 07:00 10/28/17 04:00 10/28/17 04:00 10/28/17 04:00 Intake & Output 10/27/17 10/28/17 10/29/17 06:59 06:59 06:59 Intake Total 515 1527 Balance 515 1527 Weight 56.5 kg 58.6 kg General appearance: PRESENT: no acute distress, well-developed, well-nourished Head exam: PRESENT: atraumatic, normocephalic Eye exam: PRESENT: conjunctiva pink, EOMI, PERRLA. ABSENT: scleral icterus Ear exam: PRESENT: normal external ear exam Mouth exam: PRESENT: moist, tongue midline Neck exam: ABSENT: carotid bruit, JVD, lymphadenopathy, thyromegaly Respiratory exam: PRESENT: clear to auscultation maurilio. ABSENT: rales, rhonchi, wheezes Cardiovascular exam: PRESENT: RRR. ABSENT: diastolic murmur, rubs, systolic murmur Pulses: PRESENT: normal dorsalis pedis pul Vascular exam: PRESENT: normal capillary refill GI/Abdominal exam: PRESENT: normal bowel sounds, soft. ABSENT: distended, guarding, mass, organolmegaly, rebound, tenderness Rectal exam: PRESENT: deferred Extremities exam: PRESENT: full ROM. ABSENT: calf tenderness, clubbing, pedal edema Neurological exam: PRESENT: alert, awake, oriented to person, oriented to place , oriented to time, oriented to situation, CN II-XII grossly intact. ABSENT: motor sensory deficit Psychiatric exam: PRESENT: appropriate affect, normal mood. ABSENT: homicidal ideation, suicidal ideation Skin exam: PRESENT: dry, intact, warm. ABSENT: cyanosis, rash Results Laboratory Results: 10/28/17 06:00 10/28/17 06:00 10/27/17 10/27/17 10/28/17 10:07 17:48 06:00 WBC 6.5 RBC 3.36 L Hgb 9.0 L Hct 27.4 L MCV 82 MCH 26.7 L MCHC 32.6 RDW 15.8 H Plt Count 328 Sodium 147.0 H 145.7 H Potassium 3.8 3.8 Chloride 111 H 109 H Carbon Dioxide 25 27 Anion Gap 11 10 BUN 19 21 H Creatinine 0.66 0.76 Est GFR ( Amer) > 60 > 60 Est GFR (Non-Af Amer) > 60 > 60 Glucose 165 H 180 H Calcium 9.8 9.8 10/28/17 06:00 WBC RBC Hgb Hct MCV MCH MCHC RDW Plt Count Sodium 145.5 H Potassium 3.6 Chloride 109 H Carbon Dioxide 26 Anion Gap 11 BUN 18 Creatinine 0.63 Est GFR ( Amer) > 60 Est GFR (Non-Af Amer) > 60 Glucose 106 Calcium 9.3 Assessment & Plan - Diagnosis (1) Gingival hemorrhage Is this a current diagnosis for this admission?: Yes Plan: Improved, I have asked nursing to follow her closely over the next 24 hours and if there is no bleeding by tomorrow she should be able to be discharged I believe (2) Von Willebrand disease Is this a current diagnosis for this admission?: Yes Plan: Improved on DDAVP, continue as above - Time Time Spent with patient: 35 or more minutes - Today spent greater than 35 minutes in discussion with pharmacy and coordination of care today.
[2017-10-28] MEDS: LEVETIRACETAM ORAL SOLN 500 MG/5 ML UDCUP PO SCH ×2 (09:39→18:43)
[2017-10-28] MEDS: METOPROLOL TARTRATE 25 MG TABLET PO SCH (09:40)
[2017-10-28] MEDS: CALCIUM CARBONATE 250 MG/VITAMIN D3 125 UNIT TABLET PO SCH ×2 (09:40→18:43)
[2017-10-28] MEDS: SENNOSIDES/DOCUSATE 8.6-50 MG 1 EACH TABLET PO SCH ×2 (09:41→18:43)
[2017-10-28] MEDS: DOCUSATE SODIUM 100 MG CAPSULE PO SCH ×2 (09:43→18:44)
[2017-10-28] MEDS: DEXTROSE 5%-1/2 NORMAL SALINE 1,000 ML IV PRN (11:03)
[2017-10-28] MEDS: CARBOXYMETHYLCELLULOSE SOD 0.5% 0.4 ML DROPERETTE OS SCH ×2 (11:05→18:42)
[2017-10-28 11:44] LABS: ANION GAP 9 (5-19); BLOOD UREA NITROGEN 17 mg/dL (7-20); CALCIUM 9.4 mg/dL (8.4-10.2); CARBON DIOXIDE 28 mmol/L (22-30); CHLORIDE 108 mmol/L (98-107); GLUCOSE 110 mg/dL (75-110); POTASSIUM 3.7 mmol/L (3.6-5.0); SODIUM 145.4 mmol/L (137-145)
--- NOTE | 2017-10-28 12:58 | PDOC DISCHARGE SUMMARY ---
General - Admit/Disc Date/PCP Admission Date/Primary Care Provider: 10/22/17 10:06 ISMAEL MCKEON Discharge Date: 10/28/17 - Discharge Diagnosis (1) Gingival bleeding Is this a current diagnosis for this admission?: Yes (3) Von Willebrand disease Is this a current diagnosis for this admission?: Yes (4) Dementia Is this a current diagnosis for this admission?: Yes (5) Hemiparesis affecting right side as late effect of cerebrovascular accident Is this a current diagnosis for this admission?: Yes (6) Do not resuscitate Is this a current diagnosis for this admission?: Yes (7) Anemia Is this a current diagnosis for this admission?: Yes (8) Hypernatremia Is this a current diagnosis for this admission?: Yes - Additional Information Discharge Diet: Regular Discharge Activity: Activity As Tolerated Home Medications: Acetaminophen [Tylenol 325 mg Tablet] 325 mg PO Q6HP PRN 10/22/17 Atorvastatin Calcium [Lipitor 40 mg Tablet] 40 mg PO QHS 10/22/17 Calcium Carbonate/Vitamin D3 [Os-Shabbir 500-Vit D3 200 Caplet] 1 tab PO BIDBS 10/22 Carboxymethylcellulose Sodium [Refresh Tears] 1 drop OS BID 10/22/17 Docusate Sodium [Colace 100 mg Capsule] 100 mg PO BID 10/22/17 Famotidine [Pepcid 20 mg Tablet] 20 mg PO QHS 10/22/17 Lactulose [Cephulac Syrup 20 gm/30 ml Udcup] 10 gm PO BID 10/22/17 Levetiracetam [Keppra 500 mg Tablet] 1,000 mg PO DAILY 10/22/17 Levetiracetam [Keppra 500 mg Tablet] 500 mg PO QHS 10/22/17 Levothyroxine Sodium [Synthroid 0.025 mg Tablet] 25 mcg PO Q6AM 10/22/17 Loperamide HCl [Imodium 2 mg Capsule] 2 mg PO QIDP PRN MDD 8 MG OR 4 CAPSULES Metoprolol Tartrate [Lopressor 25 mg Tablet] 12.5 mg PO Q12 10/22/17 Mirtazapine [Remeron 15 mg Tablet] 7.5 mg PO QHS 10/22/17 Promethazine HCl [Phenergan 25 mg Supp.rect] 25 mg DE Q12HP PRN 10/22/17 Sennosides [Senna] 8.6 mg PO BID 10/22/17 Metoprolol Tartrate [Lopressor 25 mg Tablet] 12.5 mg PO Q12 tablet 10/28/17 History of Present Illness Patient complains of: Bleeding from mouth History of Present Illness: EDWARD DICK is a 82 year old female Who was admitted with persistent gingival bleeding. Hospital Course Hospital Course: Patient was seen by , java programmer analyst who helped to manage her case. Patient has a history of underlying von Willebrand's disease and she was felt to be bleeding secondary to this. She received both intranasal and intravenous DDAVP and after a few doses her bleeding has resolved with no bleeding is noted in the last 24 hours. She remained hemodynamically stable throughout her hospital stay. Hemoglobin was also relatively stable with just a slight downward trend. Sodium was slightly elevated and she received hypotonic fluids and I will suggest follow-up with her BMP as outpatient at this time with no further bleeding noted with no further interventions planned patient is being discharged back to [facility]. Physical Exam Vital Signs: Temp Pulse Resp BP Pulse Ox 97.4 F 80 18 110/58 L 97 10/28/17 11:54 10/28/17 11:54 10/28/17 11:54 10/28/17 11:54 10/28/17 11:54 Intake & Output 10/27/17 10/28/17 10/29/17 06:59 06:59 06:59 Intake Total 515 1527 Balance 515 1527 Weight 56.5 kg 58.6 kg General appearance: PRESENT: hard of hearing, thin, other - Elderly and frail, Head exam: PRESENT: atraumatic Ear exam: PRESENT: normal external ear exam Mouth exam: PRESENT: other - No further bleeding noted Teeth exam: PRESENT: poor dentation Neck exam: ABSENT: carotid bruit, JVD, lymphadenopathy, thyromegaly Respiratory exam: PRESENT: clear to auscultation maurilio. ABSENT: rales, rhonchi, wheezes Cardiovascular exam: PRESENT: RRR. ABSENT: diastolic murmur, rubs, systolic murmur Pulses: PRESENT: normal dorsalis pedis pul GI/Abdominal exam: PRESENT: normal bowel sounds, soft. ABSENT: distended, guarding, mass, organolmegaly, rebound, tenderness Rectal exam: PRESENT: deferred Neurological exam: PRESENT: motor sensory deficit - R sided hemiparesis, aphasic Results Laboratory Results: 10/28/17 06:00 10/28/17 11:07 10/27/17 10/28/17 10/28/17 17:48 06:00 06:00 WBC 6.5 RBC 3.36 L Hgb 9.0 L Hct 27.4 L MCV 82 MCH 26.7 L MCHC 32.6 RDW 15.8 H Plt Count 328 Sodium 145.7 H 145.5 H Potassium 3.8 3.6 Chloride 109 H 109 H Carbon Dioxide 27 26 Anion Gap 10 11 BUN 21 H 18 Creatinine 0.76 0.63 Est GFR ( Amer) > 60 > 60 Est GFR (Non-Af Amer) > 60 > 60 Glucose 180 H 106 Calcium 9.8 9.3 10/28/17 11:07 WBC RBC Hgb Hct MCV MCH MCHC RDW Plt Count Sodium 145.4 H Potassium 3.7 Chloride 108 H Carbon Dioxide 28 Anion Gap 9 BUN 17 Creatinine 0.69 Est GFR ( Amer) > 60 Est GFR (Non-Af Amer) > 60 Glucose 110 Calcium 9.4 Plan Time Spent: Greater than 30 Minutes
[2017-10-28 18:54] VITALS: BP 121/65
== END 2017-10-28 21:10 | DRG 158 ==
LOC: ER 08:41 → OBSVTOIN 10:06 → EH 10:06 → INTOOBSV 10:06 → 4S 17:37 → OBSVTOIN 10-24 14:54
PROVIDERS: ADMIT Physician Assistant; ATTEND Physician Assistant
DX: K06.8 Other specified disorders of gingiva and edentulous alveolar ridge (principal); D68.0 Von Willebrand disease; I69.351 Hemiplegia and hemiparesis following cerebral infarction affecting right dominant side; E87.0 Hyperosmolality and hypernatremia; Z66 Do not resuscitate; I48.91 Unspecified atrial fibrillation; I10 Essential (primary) hypertension; G47.30 Sleep apnea, unspecified; G40.909 Epilepsy, unspecified, not intractable, without status epilepticus; G30.9 Alzheimer's disease, unspecified; D63.8 Anemia in other chronic diseases classified elsewhere; F02.80 Dementia in other diseases classified elsewhere, unspecified severity, without behavioral disturbance, psychotic disturbance, mood disturbance, and anxiety; E78.00 Pure hypercholesterolemia, unspecified; I69.898 Other sequelae of other cerebrovascular disease; I69.320 Aphasia following cerebral infarction; I69.391 Dysphagia following cerebral infarction; I25.2 Old myocardial infarction; Z28.21 Immunization not carried out because of patient refusal; Z79.899 Other long term (current) drug therapy; Z86.711 Personal history of pulmonary embolism; Z85.828 Personal history of other malignant neoplasm of skin; Z90.49 Acquired absence of other specified parts of digestive tract; Z90.710 Acquired absence of both cervix and uterus; Z90.11 Acquired absence of right breast and nipple; Z85.3 Personal history of malignant neoplasm of breast; Z82.49 Family history of ischemic heart disease and other diseases of the circulatory system
CPT/HCPCS: 36415; 80048; 82607; 82728; 82746; 83540; 83550; 84466; 85025; 85027; 85045; 85610; 85730; 99284; G0378; J2597; J3490

== ENCOUNTER 2017-10-30 08:48 | Emergency (ER) | payer MEDICARE, OTHER ==
[2017-10-30] MEDS ORDERED: NORMAL SALINE 500 ML IV ONE ×2 (09:12→11:58)
--- NOTE | 2017-10-30 09:47 | RADIOLOGY REPORT (SQ) ---
EXAM DESCRIPTION: CT HEAD WITHOUT COMPLETED DATE/TIME: 10/30/2017 9:32 am REASON FOR STUDY: sz COMPARISON: 06/22/2015, 11/23/2015, 06/22/2016, 09/04/2017 CT brain exams TECHNIQUE: Axial images acquired through the brain without intravenous contrast. Images reviewed wi th bone, brain and subdural windows. Images stored on PACS. All CT scanners at this facility use dose modulation, iterative reconstruction, and/or weight based d osing when appropriate to reduce radiation dose to as low as reasonably achievable (ALARA). [facility]: Dose Right [facility]: CareDose [facility]: Dose Right [facility]: Teradose 4D [facility]: [employer] RADIATION DOSE: CT Rad equipment meets quality standard of care and radiation dose reduction techniq ues were employed. CTDIvol: 64.6 mGy. DLP: 1034 mGy-cm. mGy. LIMITATIONS: None. FINDINGS: VENTRICLES: Normal size and contour. CEREBRUM: There is of large left MCA distribution infarct involving the left temporal lobe, perisylvi an frontal lobe, lateral basal ganglia and insular cortex. This is similar compared to previous stud ies. Moderate bifrontal and biparietal small vessel chronic ischemic change. No CT evidence of acute large territory ischemic change, acute intracranial hemorrhage, mass effect, or midline shift. CEREBELLUM: No masses. No hemorrhage. No alteration of density. No evidence for acute infarction. EXTRAAXIAL SPACES: No fluid collections. No masses. ORBITS AND GLOBE: No intra- or extraconal masses. Normal contour of globe without masses. CALVARIUM: No fracture. PARANASAL SINUSES: No fluid or mucosal thickening. SOFT TISSUES: No mass or hematoma. OTHER: Old left mastoidectomy defect filled with fluid or soft tissue IMPRESSION: No acute findings. 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 COMMENT: Quality ID # [id number]: Final reports with documentation of one or more dose reduction techniques (e.g., Automated exposure control, adjustment of the mA and/or kV according to patient size, use of iterative reconstruction technique) TECHNICAL DOCUMENTATION: JOB ID: [id number] [employer]- All Rights Reserved
--- NOTE | 2017-10-30 09:49 | RADIOLOGY REPORT (SQ) ---
EXAM DESCRIPTION: CHEST SINGLE VIEW COMPLETED DATE/TIME: 10/30/2017 9:40 am REASON FOR STUDY: sz/aspiration COMPARISON: Chest films 10/01/2017, 09/04/2017, 11/23/2015 EXAM PARAMETERS: NUMBER OF VIEWS: One view. TECHNIQUE: Single frontal radiographic view of the chest acquired. RADIATION DOSE: NA LIMITATIONS: None. FINDINGS: LUNGS AND PLEURA: Minimal left basilar atelectasis or scarring. Right lung clear. No pleural effusions, no pneumothorax. No worrisome pulmonary nodules. MEDIASTINUM AND HILAR STRUCTURES: No masses. Contour normal. HEART AND VASCULAR STRUCTURES: Heart normal in size. Normal vasculature. BONES: No acute findings. HARDWARE: Clips right axilla post right mastectomy OTHER: No other significant finding. IMPRESSION: Minimal left basilar atelectasis or scarring TECHNICAL DOCUMENTATION: JOB ID: [id number] [employer]- All Rights Reserved
[2017-10-30 11:30] LABS: ABSOLUTE EOSINOPHILS # (AUTO) 0.1 10^3/uL (0.0-0.6); ABSOLUTE LYMPHOCYTES (AUTO) 0.6 10^3/uL (0.5-4.7); ABSOLUTE MONOCYTES (AUTO) 0.8 10^3/uL (0.1-1.4); ABSOLUTE NEUT (AUTO) 6.5 10^3/uL (1.7-8.2); BASOPHILS % (AUTO) 0.4 % (0-2); EOSINOPHILS % (AUTO) 0.9 % (0-6); HEMATOCRIT 24.6 % (36.0-47.0); HEMOGLOBIN 8.2 g/dL (12.0-15.5); MEAN CORPUSCULAR HEMOGLOBIN 27.4 pg (27.0-33.4); MEAN CORPUSCULAR HGB CONC 33.4 g/dL (32.0-36.0); MEAN CORPUSCULAR VOLUME 82 fl (80-97); MONOCYTES % (AUTO) 10.4 % (3-13); PLATELET COUNT 264 10^3/uL (150-450); RED BLOOD COUNT 3.01 10^6/uL (3.72-5.28); RED CELL DISTRIBUTION WIDTH 16.5 % (11.5-14.0); SEGMENTED NEUTROPHILS % (AUTO) 81.3 % (42-78); TOTAL CELLS COUNTED % (AUTO) 100 %; WHITE BLOOD COUNT 8.1 10^3/uL (4.0-10.5)
[2017-10-30 11:52] LABS: ALANINE AMINOTRANSFERASE 11 U/L (9-52); ALBUMIN 2.7 g/dL (3.5-5.0); ALKALINE PHOSPHATASE 66 U/L (38-126); ANION GAP 10 (5-19); ASPARTATE AMINO TRANSFERASE 23 U/L (14-36); BILIRUBIN,DIRECT 0.1 mg/dL (0.0-0.4); BILIRUBIN,TOTAL 0.2 mg/dL (0.2-1.3); BLOOD UREA NITROGEN 20 mg/dL (7-20); CALCIUM 8.6 mg/dL (8.4-10.2); CARBON DIOXIDE 26 mmol/L (22-30); CHLORIDE 111 mmol/L (98-107); GLUCOSE 193 mg/dL (75-110); LIPASE 219.1 U/L (23-300); POTASSIUM 3.1 mmol/L (3.6-5.0); SODIUM 146.7 mmol/L (137-145); TOTAL PROTEIN 4.6 g/dL (6.3-8.2)
--- NOTE | 2017-10-30 13:03 | ER Document Report ---
ED General - General Chief Complaint: Probable Seizure Stated Complaint: POSSIBLE SEIZURE Time Seen by Provider: 10/30/17 09:08 TRAVEL OUTSIDE OF THE [place] IN LAST 30 DAYS: No - HPI Patient complains to provider of: Seizure Notes: Patient presents today for possible seizure. Upon EMS arrival states patient has a history of Seizures Apparently Had One Today of Staring off withA lateral nystagmus. 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 Patient also has expressive aphasia. Patient is able to shake her head yes or no to questions. Indicates no pain indicates that she is feeling better now. EMS reports that the family is concerned to the patient had fluid in her mouth anesthesia record concern about aspiration. - Related Data Allergies/Adverse Reactions: No Known Allergies Allergy (Verified 09/04/17 00:44) Past Medical History - Social History Smoking Status: Unknown if Ever Smoked Chew tobacco use (# tins/day): No Frequency of alcohol use: None Drug Abuse: None Family History: Reviewed & Not Pertinent, CAD - Mother of an NM at age 59 Patient has suicidal ideation: No Patient has homicidal ideation: No - Past Medical History Cardiac Medical History: Reports: Hx Atrial Fibrillation, Hx Heart Attack, Hx Hypercholesterolemia, Hx Hypertension, Hx Pulmonary Embolism Pulmonary Medical History: Reports: Hx Sleep Apnea Neurological Medical History: Reports: Hx Cerebrovascular Accident - Spelled reports she had a stroke during her most recent hospitalization., Hx Seizures Renal/ Medical History: Denies: Hx Peritoneal Dialysis Malignancy Medical History: Reports: Hx Breast Cancer, Hx Skin Cancer Psychiatric Medical History: Denies: Hx Depression Past Surgical History: Reports: Hx Cholecystectomy, Hx Hysterectomy, Hx Mastectomy - right breast 2000, Hx Tubal Ligation - Immunizations Hx Diphtheria, Pertussis, Tetanus Vaccination: Yes Hx Pneumococcal Vaccination: 09/23/14 Review of Systems - Review of Systems Constitutional: No symptoms reported EENT: No symptoms reported Cardiovascular: No symptoms reported Respiratory: No symptoms reported Gastrointestinal: No symptoms reported Genitourinary: No symptoms reported Female Genitourinary: No symptoms reported Musculoskeletal: No symptoms reported Skin: No symptoms reported Hematologic/Lymphatic: No symptoms reported Neurological/Psychological: Seizure -: Yes All other systems reviewed and negative Physical Exam - Vital signs Vitals: Resp BP Pulse Ox 18 93/59 L 95 10/30/17 09:11 10/30/17 09:11 10/30/17 09:11 Interpretation: Hypotensive - General General appearance: Appears well, Alert - HEENT Head: Normocephalic, Atraumatic Eyes: Normal Pupils: PERRL - Respiratory Respiratory status: No respiratory distress Chest status: Nontender Breath sounds: Normal Chest palpation: Normal - Cardiovascular Rhythm: Regular Heart sounds: Normal auscultation Murmur: No - Abdominal Inspection: Normal Distension: No distension Bowel sounds: Normal Tenderness: Nontender Organomegaly: No organomegaly - Back Back: Normal, Nontender - Extremities General upper extremity: Normal inspection, Nontender, Normal color, Normal ROM , Normal temperature General lower extremity: Normal inspection, Nontender, Normal color, Normal ROM , Normal temperature, Normal weight bearing. No: Radha's sign - Neurological Neuro grossly intact: Yes Sensory: Normal - Skin Skin Temperature: Warm Skin Moisture: Dry Skin Color: Normal Course - Re-evaluation Re-evalutation: 10/30/17 14:34 Laboratory values showed chronic anemia and signs of dehydration with elevated sodium. Patient's blood pressure initially thought to be low however when compared to recent admission patient looks to normally run in the 90s to low 100s. IV fluids were given. Patient CT head and chest x-ray were negative for any acute pathology. Vital signs remained otherwise stable. Patient does be stable to be transferred back to her longterm. Family requesting increase in her Keppra dosing which I do believe may help the patient is as according to the family has had increase in seizure activity. Current family patient baseline patient was able to indicate that she was pleased with her care but shaking my hand and smiling. - Vital Signs Vital signs: Temp Pulse Resp BP Pulse Ox 20 96/49 L 96 10/30/17 13:20 10/30/17 13:20 10/30/17 13:20 - Laboratory Result Diagrams: 10/30/17 11:21 10/30/17 11:21 Laboratory results interpreted by me: 10/30/17 10/30/17 11:21 11:21 RBC 3.01 L Hgb 8.2 L Hct 24.6 L RDW 16.5 H Seg Neutrophils % 81.3 H Lymphocytes % 7.0 L Sodium 146.7 H Potassium 3.1 L Chloride 111 H Glucose 193 H Total Protein 4.6 L Albumin 2.7 L Discharge - Discharge Clinical Impression: Seizure, DNR (do not resuscitate), Hemiparesis affecting right side as late effect of cerebrovascular accident Condition: Good Instructions: Dehydration ([facility]), Seizure, Known Epileptic ([facility]) Additional Instructions: I will increase the patient's Keppra to thousand milligrams twice daily. Please make sure patient follows up with primary care physician return to the ER symptoms worsen. Laboratory studies and indicated chronic anemia and dehydration. Prescriptions: Levetiracetam [Keppra 500 mg Tablet] 1,000 mg PO Q12 #60 tablet Referrals: ISMAEL MCKEON MD [Primary Care Provider] - Follow up in 3-5 days
[2017-10-30 14:39] VITALS: BP 104/49
== END 2017-10-30 14:30 ==
LOC: ER 08:48
DX: R56.9 Unspecified convulsions (principal); I69.951 Hemiplegia and hemiparesis following unspecified cerebrovascular disease affecting right dominant side; Z66 Do not resuscitate; Z85.3 Personal history of malignant neoplasm of breast; Z85.828 Personal history of other malignant neoplasm of skin; Z90.49 Acquired absence of other specified parts of digestive tract; Z90.710 Acquired absence of both cervix and uterus; Z90.11 Acquired absence of right breast and nipple; I48.91 Unspecified atrial fibrillation; I25.2 Old myocardial infarction; E78.00 Pure hypercholesterolemia, unspecified; I10 Essential (primary) hypertension; Z86.711 Personal history of pulmonary embolism
CPT/HCPCS: 99285; 96360; 36415; 80177; 83690; 85025; 80053; 71045; 70450; J7040